=== PATIENT | male | born 1950 | race Caucasian/White ===

== ENCOUNTER 2025-05-13 03:39 | Inpatient (IN) | payer MEDICARE, SELFPAY ==
[2025-05-12 22:32] VITALS: BP 147/57
[2025-05-12 22:47] LABS: Hematocrit 34.9 % (39.0-52.0); Hemoglobin 11.3 g/dL (13.0-18.0); Mean Corp Hgb Conc. 32.4 g/dL (33.0-37.0); Mean Corpuscular Volume 87.9 fL (80.0-94.0); Nucleated Red Blood Cells % 0 % (-); Platelet Count 348 10^3/uL (130-400); Red Cell Dist. Width 15.2 % (11.5-14.5)
--- NOTE | 2025-05-12 22:55 | ED.GENMED ---
History of Present Illness
General
Chief Complaint: Breathing Problem
Source: patient, records and family
Time Seen by Provider: 05/12/25 22:38
History of Present Illness
History of Present Illness:
This patient is a 74-year-old male presents emergency department with fevers cough and shortness of breath. Patient occasionally has shortness of breath but tonight he noted that he was having a hard time breathing and was noted to have an
increased oxygen requirement. Family states that he is typically on nasal cannula, and then BiPAP at night. Patient states he is normally on 2 L of nasal cannula during the day and he is noted to be on a higher oxygen requirement at this time.
states that he has an increase in his cough recently. He does not take food or drink orally and is exclusively maintaining nutrition via PEG tube. Patient denies chest pain, abdominal pain, nausea, vomiting, leg swelling, urinary symptoms, or
other complaints. He is incontinent at baseline.
Past History
Past History
ED Past Medical History: Other (GBS, diabetes, thrombocytopenia, kidney failure/hemodialysis, left upper extremity DVT, COPD, reflux)
Social History
Tobacco: Non-smoker
Drug: None
Personal:
Living: correction
Phy Exam
Physical Exam
Physical Exam:
GENERAL: Alert , in no apparent distress
EYE: pupils equal and reactive
NECK: Supple, no significant adenopathy.
ENT: o/p clr, mmm.
CARDIAC: Regular rate and rhythm . Right hemodialysis cath site in the right anterior chest without secondary redness warmth or tenderness
LUNGS: Equal breath sounds bilaterally, no acute respiratory distress, occasional wheeze noted, no rales. Patient has a occasional cough and it does not appear that he is adequately clearing sputum
ABDOMEN: Soft, mild lower abdominal tenderness, no r/g, PEG tube noted clean dry and intact
NEUROLOGICAL: Alert and oriented, chronic/subacute weakness noted
SKIN: Warm and dry, skin intact. Very dry skin noted bilateral lower extremities
MUSCULOSKELETAL: No edema, well perfused.
PSYCH: Normal and appropriate interaction.
: Excoriated scrotal area noted
Course
Orders/Labs/Results
Orders:
Orders
05/12/25 22:31
Electrocardiogram (*1) Urgent
Reason for Study: Shortness of Breath
EKG- Treatment ONCE
CR Chest - 2 Views Urgent
Comment:
Reason For Exam: SOB
05/12/25 22:38
COVID-19 Antigen Urgent
Source: Nasal Swab
Complete Blood Count/With Diff Urgent
Comprehensive Metabolic Panel Urgent
Influenza A+B Rapid Molecular Urgent
[facility] Source: Nasal Swab
Specimen Description:
05/12/25 23:09
D-Dimer Urgent
NT-proBNP Urgent
Troponin I Urgent
05/13/25 00:38
CT Chest W/o Iv Contrast Urgent
Comment:
Reason For Exam: l sided cxr abnl, hypoxia
Urinalysis Reflex To Culture Urgent
Piperacillin/Tazo 4.5 Gram [Zosyn] 4.5 gram in 100 ml IV NOW
05/13/25 00:46
Lactic Acid Q4H
Comment: CANCEL 2nd LACTIC ACID IF 1st LACTIC ACID IS LESS THAN 2
Blood Culture Q30M
[facility] Source: Blood/Venous
Specimen Description:
Blood Culture Q30M
[facility] Source: Blood/Venous
Specimen Description:
05/13/25 04:45
Lactic Acid Q4H
Comment: CANCEL 2nd LACTIC ACID IF 1st LACTIC ACID IS LESS THAN 2
Abnormal Lab Results
05/12/25 05/12/25
22:38 23:09
WBC 22.0 H 10^3/uL
(4.8-10.8)
RBC 3.97 L 10^6/uL
(4.70-6.10)
Hgb 11.3 L g/dL
(13.0-18.0)
Hct 34.9 L %
(39.0-52.0)
MCHC 32.4 L g/dL
(33.0-37.0)
RDW 15.2 H %
(11.5-14.5)
MPV 11.9 H fL
(7.4-10.4)
Abs Immat Gran (auto) 0.6 H 10^3/uL
(0-0.05)
Absolute Neuts (auto) 17.6 H 10^3/uL
(1.4-6.5)
Absolute Monos (auto) 1.9 H 10^3/uL
(0.1-0.6)
Immature Gran % 2.6 H %
(0-0.5)
Neutrophils % 80.0 H %
(42.2-75.2)
Lymphocytes % 5.4 L %
(20.5-51.1)
D-Dimer 2.97 H ug/mlFEU
(0.00-0.50)
Sodium 130 L mmol/L
(135-145)
BUN 42 H mg/dl
(9-20)
Creatinine 1.9 H mg/dL
(0.7-1.3)
Glucose 249 H mg/dl
(70-99)
Calcium 10.6 H mg/dl
(8.4-10.2)
Alkaline Phosphatase 137 H U/L
(38-126)
05/12/25 22:38
05/12/25 22:38
Vital Signs
Initial and Last Documented VS:
Initial Vital Signs
Temp Pulse Ox
98.2 F 94
05/12/25 22:24 05/12/25 22:24
Last Documented Vital Signs
Temp Pulse Resp BP Pulse Ox
98.2 F 72 30 136/50 99
05/12/25 22:24 05/13/25 01:00 05/13/25 01:00 05/12/25 23:00 05/13/25 01:00
*Pulse Oximetry
SaO2: 94
Nasal Cannula flow liters per minute: 6
Update Note
Update Note:
Patient presents to the Emergency Department with ___reported fever dyspnea and cough
Number and Complexity of Problems Addressed at the Encounter
� Chronic conditions affecting care:
� Acute Exacerbation and/or Progression of Chronic Illness:
� Differential Diagnosis includes: But not limited to pneumonia, pleural effusion, bronchitis, COPD exacerbation, ACS, PE, etc. etc.
Amount and/or Complexity of Data to be Reviewed and Analyzed
� I performed an independent evaluation of and my interpretation is:
EKG: Read by me, normal sinus rhythm, LAD, no acute ischemia
CT: Pending at time of disposition to hospitalist
Xrays: Patient has a 'white out' of the entire left lung field
Laboratory Studies: Marked leukocytosis with shift, mild anemia, hyponatremia, abnormal renal function no prior to compare but not unexpected given patient is on hemodialysis. Nonspecific D-dimer elevation
Other:
� Review of other/old records reveals: No old records available however I have reviewed his [place] point summary report
� Clinical information was obtained by an independent historian: Daughter son and all who are at bedside and offer further information regarding his baseline and new symptoms
� Prescriptions/Medications Considered but not given:
� Further testing considered but not performed:
Risk of Complications and/or Morbidity or Mortality of Patient Management
� Social determinants of health affecting care:
� Discussion with other providers (PCP, Hospitalists, Consultants, etc):
� Escalation of care including admission/observation vs risk of discharge considered: 1:39 AM patient remains stable on nasal cannula, no new complaints, no chest pain. No prior records for comparison here. Patient had a CAT
scan performed given markedly abnormal chest x-ray and this result is pending. Suspect multi focal left-sided pneumonia, which may or may not include effusion. Patient does not meet criteria for sepsis, and suspected pneumonia most likely etiology
for patient's presentation here. No other source of infection identified on history or physical exam. Antibiotics started. Hospitalist made aware. Family updated.
2:28 AM vision report 'large left pleural effusion with near complete collapse of the left lung with only mild aeration. However the volume of the lung is more than expected for peer atelectasis given debris within the left mainstem bronchus please
correlate for con commitment clinical infection/aspiration. No definitive obstruction mass, suggest follow-up to ensure resolution of this finding. No midline shift. Aorta demonstrates no evidence of aneurysm, moderate calcifications. Severe
coronary artery calcifications and/or stent. Pacemaker. These findings will be communicated to the admitting hospitalist via [place] text.
ED Attending Note
-
Portions of this chart may have been created with voice recognition software.� Occasional wrong word or��sound alike� substitutions may have occurred due to the inherent limitations of voice recognition software.
Discharge Plan
Departure
Patient Disposition: Admit
Date of Disposition: 05/13/25
Time of Disposition: 01:40
Presentation/result/management discussed w/ accepting MD/DO: Hospitalist
Condition: Fair
Prescriptions:
No Action
atorvastatin 40 mg Tablet
40 mg feeding tube QPM
acetaminophen 325 mg Tablet
325 mg FEEDING TUBE ONCE PRN (Reason: pain, fever)
aspirin 325 mg Tablet
325 mg feeding tube DAILY
ascorbic acid (vitamin C) 500 mg Tablet
500 mg feeding tube DAILY
ammonium lactate 12 % Cream
1 applic TOPICAL DAILY
bumetanide 2 mg Tablet
2 mg feeding tube DAILY
Rx Instructions:
AM every friday, , sat and sun
hydralazine 25 mg Tablet
25 mg feeding tube QID
cabergoline 0.5 mg Tablet
0.5 mg FEEDING TUBE ONCE
Rx Instructions:
every 4 days
escitalopram oxalate 20 mg Tablet
20 mg feeding tube DAILY
guaifenesin 200 mg/5 mL Liquid
200 mg feeding tube Q4H PRN (Reason: cough)
insulin glargine 100 unit/mL (3 mL) Insulin Pen
24 unit SC QPM
cholecalciferol (vitamin D3) 50 mcg (2,000 unit) Tablet
50 mcg feeding tube DAILY
ipratropium-albuterol 0.5 mg-3 mg(2.5 mg base)/3 mL Solution For Nebulization
3 ml INHALATION Q6H PRN (Reason: SOB)
levothyroxine 150 mcg Tablet
150 mcg feeding tube DAILY
lansoprazole 15 mg Capsule,Delayed Release(Dr/Ec)
10 mg feeding tube BID
metoprolol tartrate 25 mg Tablet
25 mg feeding tube BID
lidocaine HCl 4 % Adhesive Patch,Medicated
1 patch TOPICAL DAILY PRN (Reason: pain)
Rx Instructions:
left shoulder
multivitamin [A To Z Multivitamin] Tablet
1 tab FEEDING TUBE DAILY
primidone 50 mg Tablet
50 mg feeding tube HS
Novolin R FlexPen 100 unit/mL (3 mL) Insulin Pen
1 sliding scale dose SC DIRECTED
Novolin R FlexPen 100 unit/mL (3 mL) Insulin Pen
4 unit SC BID
Rx Instructions:
AC/HS
sevelamer carbonate 0.8 gram Powder In Packet
0.8 g feeding tube TID
Rx Instructions:
with meals
ProSource 10-100 gram-kcal/30 mL Liquid
30 ea feeding tube
Rx Instructions:
30ML
balsam rush-castor oil [Venelex] Ointment
1 applic TOPICAL QID
polyethylene glycol 3350 4.25 gram Powder In Packet
4.25 g feeding tube DAILY
Referrals:
NONE,* [Family Provider, Internal Medicine]
Interventions
Interventions:
ED- Cardiac Assessment Last Done: 05/12/25 23:30
ED- Pulmonary Assessment Last Done: 05/12/25 23:30
Discharge Date and Time
Print Language: BENGALI
[2025-05-12 23:00] VITALS: BP 136/50
[2025-05-12 23:02] LABS: ALT (SGPT) 26 U/L (0-50); AST (SGOT) 19 U/L (17-59); Albumin 4.0 g/dl (3.5-5.0); Alkaline Phosphatase 137 U/L (38-126); Blood Urea Nitrogen 42 mg/dl (9-20); Calcium 10.6 mg/dl (8.4-10.2); Carbon Dioxide 26 mmol/L (22-30); Chloride 101 mmol/L (98-107); Glucose 249 mg/dl (70-99); Potassium 4.0 mmol/L (3.5-5.1); Sodium 130 mmol/L (135-145); Total Protein 6.9 g/dl (6.3-8.2); eGFR 36.56
[2025-05-12 23:05] LABS: COVID-19 Antigen Negative (Negative)
[2025-05-12 23:36] LABS: D-Dimer 2.97 ug/mlFEU (0.00-0.50)
[2025-05-12 23:41] LABS: Troponin I 0.020 ng/ml
[2025-05-13] VITALS (47 sets, daily range): BP systolic 17–143; BP diastolic 41–106; PULSE 62; BMI 31.8
[2025-05-13] MEDS: ZOSYN 100 IV (02:33)
--- NOTE | 2025-05-13 02:42 | HPS.HSE ---
Family Physician
-
Family Physician: * NONE
Chief Complaint
-
Shortness of breath
History of Present Illness
This is a 74-year-old male with extensive past medical history including diagnosis of Guillain-Wright� syndrome, COPD, chronic respiratory failure on home O2, insulin-dependent diabetes, end-stage renal disease on hemodialysis Friday,
history of DVT and PE, CHF, dysphagia status post PEG tube who presents to the emergency department from [facility] with fevers cough and shortness of breath.
Patient reports that he has been having cough for about a week reports that more recently he has been having trouble breathing. A sad recent increase in his oxygen requirement. He is currently on 4 L and is normally on 2 L nasal cannula during the
day. Is also on BiPAP at night. According to spouse patient has increased cough recently that is mostly nonproductive. ED only takes nutrition via PEG tube. He denies any chest pain, nausea or vomiting, abdominal pain, worsening lower extremity
swelling palpitations or other complaints. Denies any new urinary symptoms.
Here in the emergency department the patient was afebrile, was tachycardic tachypneic to 30, blood pressure was 136/50 with a pulse of 72 and he was satting 98% on 4 L.
Leukocytosis of 22, hemoglobin was 11.3 platelet 348. Electrolytes were stable. Potassium 4.0 bicarb 26 sodium 130. Benign creatinine. 1.9 (patient is on hemodialysis) glucose 249. BNP was 6000, troponin 0.02 and D-dimer was also elevated at 2.
CT of the chest shows: Large left pleural effusion with near complete collapse of the left lung with only mild aeration, debris's within the left main bronchus concerning for infection/aspiration, no definitive obstructing mass
Medical History
Past Medical History
Past Medical History: Reports Other
Additional Past Medical History:
Green Beret syndrome, acute and chronic respiratory failure, anemia, COPD, CHF, dysphagia status post PEG tube, pulmonary embolism and DVT, CKD, insulin-dependent diabetes, hypertension, GERD, macular degeneration, ulcerative colitis, sick sinus
syndrome,
Past Surgical History: Reports Other
Social History
Tobacco: Non-smoker
Alcohol: None
Drug: None
Personal:
Living: [facility]
Employment: Disabled
Family History
Family History: Not pertinent
Allergies / Home Medications
Allergies reflects when Allergies were last updated in [facility] app.
Home Medications with original date entered in [facility] app
Allergy/Medication List:
Allergies
Allergy/AdvReac Type Severity Reaction Status Date / Time
mesalamine Allergy Unknown Unknown Verified 05/13/25 01:03
Iodinated Contrast Media Allergy Unknown Verified 05/13/25 01:03
Penicillins Allergy Unknown Verified 05/13/25 01:03
Sulfa (Sulfonamide Allergy Unknown Verified 05/13/25 01:03
Antibiotics)
Home Medications
acetaminophen 325 mg tablet 325 mg feeding tube ONCE PRN pain, fever 05/13/25
amino ac-protein hydro-whey protein 10 gram-100 kcal/30 mL oral liquid (ProSource) 30 ea feeding tube 05/13/25
ammonium lactate 12 % topical cream 1 applic topical DAILY 05/13/25
ascorbic acid (vitamin C) 500 mg tablet 500 mg feeding tube DAILY 05/13/25
aspirin 325 mg tablet 325 mg feeding tube DAILY 05/13/25
atorvastatin 40 mg tablet 40 mg feeding tube QPM 05/13/25
balsam rush-castor oil topical ointment (Venelex topical ointment) 1 applic topical QID 05/13/25
bumetanide 2 mg tablet 2 mg feeding tube DAILY 05/13/25
cabergoline 0.5 mg tablet 0.5 mg feeding tube ONCE 05/13/25
cholecalciferol (vitamin D3) 50 mcg (2,000 unit) tablet 50 mcg feeding tube DAILY 05/13/25
escitalopram oxalate 20 mg tablet 20 mg feeding tube DAILY 05/13/25
guaifenesin 200 mg/5 mL oral liquid 200 mg feeding tube Q4H PRN cough 05/13/25
hydralazine 25 mg tablet 25 mg feeding tube QID 05/13/25
insulin glargine 100 unit/mL (3 mL) subcutaneous pen 24 unit SC QPM 05/13/25
insulin regular human 100 unit/mL (3 mL) subcutaneous pen (Novolin R FlexPen) 1 sliding scale dose SC DIRECTED 05/13/25
insulin regular human 100 unit/mL (3 mL) subcutaneous pen (Novolin R FlexPen) 4 unit SC BID 05/13/25
ipratropium 0.5 mg-albuterol 3 mg (2.5 mg base)/3 mL nebulization soln 3 ml inhalation Q6H PRN SOB 05/13/25
lansoprazole 15 mg capsule,delayed release 10 mg feeding tube BID 05/13/25
levothyroxine 150 mcg tablet 150 mcg feeding tube DAILY 05/13/25
lidocaine HCl 4 % topical patch 1 patch topical DAILY PRN pain 05/13/25
metoprolol tartrate 25 mg tablet 25 mg feeding tube BID 05/13/25
multivitamin 1 tab feeding tube DAILY 05/13/25
polyethylene glycol 3350 4.25 gram oral powder packet 4.25 g feeding tube DAILY 05/13/25
primidone 50 mg tablet 50 mg feeding tube HS 05/13/25
sevelamer carbonate 0.8 gram oral powder packet 0.8 g feeding tube TID 05/13/25
Review of Systems
-
Constitutional: Reports Fever
EENT: Reports No Symptoms
Respiratory: Reports Cough and Trouble Breathing
Cardiac: Reports No Symptoms
Abdomen/GI: Reports No Symptoms
: Reports No Symptoms
Musculoskeletal: Reports No Symptoms
Skin: Reports No Symptoms
Neurological: Reports No Symptoms
Endocrine: Reports No Symptoms
Hematologic/Lymphatic: Reports No Symptoms
Psych: Reports No Symptoms
Physical Exam
Vital Signs
Vital Signs
Temp Pulse Resp BP Pulse Ox
98.2 F 72 30 136/50 99
05/12/25 22:24 05/13/25 01:00 05/13/25 01:00 05/12/25 23:00 05/13/25 01:00
Physical Exam
General: Well Developed, Well Nourished and No Apparent Distress
HEENT: NormoCephalic, Moist mucous membranes, Atraumatic, PERRLA and Oxygen
Respiratory: Decreased Breath Sounds
Cardiac: S1/S2 and Regular Rhythm; No Murmur or Rub
GI: Soft, Non Tender, Non Distended, Normal Bowel Sounds and Peg Tube; No Organomegaly
Rectal: Deferred by Provider
Genito-urinary: Deferred by me
Musculoskeletal: No Clubbing, No Cyanosis and No Edema
Skin: No Rash
Neuro: AO x 3, No Sensory Deficits and Other (2 out of 4 strength in the bilateral upper extremity, 2 out of 4 strength in the bilateral lower extremity)
Psych: Calm
Laboratory Results
-
05/12/25 22:38
05/12/25 22:38
Laboratory Results
Lactic Acid 0.8 mmol/L (0.7-2.0) 05/13/25 00:46
Total Bilirubin 0.5 mg/dl (0.2-1.3) 05/12/25 22:38
AST 19 U/L (17-59) 05/12/25 22:38
ALT 26 U/L (0-50) 05/12/25 22:38
Alkaline Phosphatase 137 U/L (38-126) H 05/12/25 22:38
Troponin I 0.020 ng/ml 05/12/25 23:09
Data Reviewed
-
CT Scan: Report Reviewed by me
Lab Data: Labs Reviewed by me
Old Records: Reviewed
Impression/Plan
-
IMPRESSION:
74-year-old with extensive past medical history notable for Granberry syndrome, chronic respiratory failure on 2 to 4 L home O2, on BiPAP dependent at home, dysphagia status post PEG who presents to the emergency department with cough and fevers at
home as well as worsening shortness of breath. Found to have significant left-sided lung collapse with only mild aeration, large left-sided pleural effusion and significant debris's within the left main bronchus concerning for aspiration. Patient
has leukocytosis to 22. Currently does not meet sepsis criteria without fever or tachycardia in the ED. Appears to be euvolemic on examination.
PLAN:
Complicated pneumonia -on pneumonia with possible large parapneumonic effusion, non-septic
- Admit to med/surg
- Blood cultures
- Influenza negative
- Check MRSA
- Continue Zosyn for now
- Supplemental oxygen
- IR consulted for diagnostic and therapeutic left thoracentesis
- BiPAP at bedtime
-Pulmonary consultation
ESRD -still makes urine, HD Friday
- Nephrology consult for HD
- Fluid restricted diet
- Renal dose medication
- continue sevelamer
Insulin-dependent diabetes
- Lantus 20 every afternoon
- Regular insulin 4 units SC twice daily
- Sliding scale every 6 hours
Tube Feeding
- Patient on Nepro 7 5 mL per x 18 hours, starting at 3 PM to 9 AM
- Free water flushes undetermined
CHF
- HD as above
- Continue Bumex daily
- Daily weights
- Continue hydralazine 25 4 times daily
DVT PPX - heparin sq
Code status - Full Code
--- NOTE | 2025-05-13 07:00 | EDRN ---
Pt cleaned up after incontinent of urine in bed. Pt then tilted to his left side w/ chair cushion.
--- NOTE | 2025-05-13 07:30 | EDRN ---
Pt is on oxygen at 4lpm here in ER and not on it at [facility], [facility].
--- NOTE | 2025-05-13 07:45 | EDRN ---
This RN texted Dr. Cowart at this time to check on whether pt is NPO w/ or w/out meds.
[2025-05-13 07:52] LABS: Glucose - Point of Care 158 mg/dl (70-99)
--- NOTE | 2025-05-13 08:15 | EDRN ---
Dr. Cowart responded to text to administer medications.
--- NOTE | 2025-05-13 08:23 | WOUNDNOTE ---
MARCELINO (R LATERAL; L MEDIAL)
--- NOTE | 2025-05-13 08:23 | WOUNDNOTE ---
R HEEL (BLANCHABLE RED)
--- NOTE | 2025-05-13 08:26 | WOUNDNOTE ---
FEEDING TUBE SITE
--- NOTE | 2025-05-13 08:26 | WOUNDNOTE ---
WOC RN note: Patient admitted with pneumonia. Patient admitted from [facility]. He stated he has an air mattress at [facility].
See H&P for complete history.
PMH: Sheree [place], COPD, respiratory insufficiency (on o2), IDDM, ESRD on HD, PE, DVT, CHF, PEG.
Wound Location and type/assessment: Patient admitted with: MASD with denuded open skin on sacrum, perineum, groin area. Stage 2 sacral/coccyx pressure injury vs MASD vs both. L elbow stage 1 pressure injury. Blanchable red heels. Dry thin linear
abrasion L hip. Mild dry red rash around feeding tube suspect r/t moisture.
Appetite: PEG, NPO.
Pressure redistribution devices in place: ED stretcher. Air chair cushion. Patient cannot turn self. ED RN Emilie Martinez plans to apply a static air overlay. Patient to go to [facility] for a procedure today as per ED RN.
Plan: Silicone border foam applied to sacrum. Silicone border foam applied to L heel. Patient turned to R semi side lying position with help from ED RN Emilie. Foot Waffle heel relief boots applied to Le's.
Will confirm orders with Dr. Cowart and discussed with nurse.
Care plan to be updated and will follow as needed.
[2025-05-13] MEDS: NOVOLOG FLEXPEN-LOW RESISTANCE SC ×3 (08:30→17:22)
--- NOTE | 2025-05-13 08:30 | EDRN ---
Dr. Cowart in to see pt at this time and spoke about a bronchoscopy and pulmonary consult w/ Dr. Herrera.
--- NOTE | 2025-05-13 08:41 | W.CON.NEPH ---
Consultation
-
Date/Time Consultation Requested: 05/13/25 7:30 AM
Date/Time Consultation Performed: 05/13/2025 8:45 AM
Requesting Provider: Dr. Cowart
Performing Provider: Dr. Rob
Reason for Consultation: ESRD
Medical History
-
Chief Complaint: End-stage renal disease
History of Present Illness:
This is a 74-year-old male with extensive past medical history including diagnosis of Guillain-Wright� syndrome, COPD, chronic respiratory failure on home O2, insulin-dependent diabetes, end-stage renal disease on hemodialysis Friday,
history of DVT and PE, CHF, dysphagia status post PEG tube who presents to the emergency department from [facility] with fevers cough and shortness of breath. The patient states he has been on dialysis since September 2024 when he was originally
admitted to [facility]. He has been in numerous hospitals and at one time was in [place].
Patient reports that he has been having cough for about a week reports that more recently he has been having trouble breathing. He had required an increase in his oxygen requirement. He is currently on 4 L and is normally on 2 L nasal cannula
during the day. Is also on BiPAP at night. According to spouse patient has increased cough recently that is mostly nonproductive. He only takes nutrition via PEG tube. He denies any chest pain, nausea or vomiting, abdominal pain, worsening lower
extremity swelling palpitations or other complaints. Denies any new urinary symptoms.
Here in the emergency department the patient was afebrile, was tachycardic tachypneic to 30, blood pressure was 136/50 with a pulse of 72 and he was satting 98% on 4 L.
Leukocytosis of 22, hemoglobin was 11.3 platelet 348. Electrolytes were stable. Potassium 4.0 bicarb 26 sodium 130. Benign creatinine. 1.9 (patient is on hemodialysis) glucose 249. BNP was 6000, troponin 0.02 and D-dimer was also elevated at 2.
CT of the chest shows: Large left pleural effusion with near complete collapse of the left lung with only mild aeration, debris's within the left main bronchus concerning for infection/aspiration, no definitive obstructing mass
Past Medical History
Potter Wright� syndrome, acute and chronic respiratory failure, anemia, COPD, CHF, dysphagia status post PEG tube, pulmonary embolism and DVT, insulin-dependent diabetes, hypertension, GERD, macular degeneration, ulcerative colitis, sick sinus
syndrome, ESRD on MWF at [place]
Social History
Tobacco: Non-Smoker
Alcohol: None
Drug: None
Family History
Family History: Not Pertinent
Allergies / Home Medications
Allergy/AdvReac Type Severity Reaction Status Date / Time
mesalamine Allergy Unknown Unknown Verified 05/13/25 01:03
Iodinated Contrast Media Allergy Unknown Verified 05/13/25 01:03
Penicillins Allergy Unknown Verified 05/13/25 01:03
Sulfa (Sulfonamide Allergy Unknown Verified 05/13/25 01:03
Antibiotics)
�Medication �Instructions �Recorded �Confirmed �Type
acetaminophen 325 mg tablet 325 mg feeding tube ONCE PRN pain, 05/13/25 05/13/25 History
fever
amino ac-protein hydro-whey 30 ea feeding tube 05/13/25 History
protein 10 gram-100 kcal/30 mL
oral liquid (ProSource)
ammonium lactate 12 % topical cream 1 applic topical DAILY 05/13/25 05/13/25 History
ascorbic acid (vitamin C) 500 mg 500 mg feeding tube DAILY 05/13/25 05/13/25 History
tablet
aspirin 325 mg tablet 325 mg feeding tube DAILY 05/13/25 05/13/25 History
atorvastatin 40 mg tablet 40 mg feeding tube QPM 05/13/25 05/13/25 History
balsam rush-castor oil topical 1 applic topical QID 05/13/25 05/13/25 History
ointment (Venelex topical ointment)
bumetanide 2 mg tablet 2 mg feeding tube DAILY 05/13/25 05/13/25 History
cabergoline 0.5 mg tablet 0.5 mg feeding tube ONCE 05/13/25 05/13/25 History
cholecalciferol (vitamin D3) 50 50 mcg feeding tube DAILY 05/13/25 05/13/25 History
mcg (2,000 unit) tablet
escitalopram oxalate 20 mg tablet 20 mg feeding tube DAILY 05/13/25 05/13/25 History
guaifenesin 200 mg/5 mL oral liquid 200 mg feeding tube Q4H PRN cough 05/13/25 05/13/25 History
hydralazine 25 mg tablet 25 mg feeding tube QID 05/13/25 05/13/25 History
insulin glargine 100 unit/mL (3 24 unit SC QPM 05/13/25 05/13/25 History
mL) subcutaneous pen
insulin regular human 100 unit/mL 1 sliding scale dose SC DIRECTED 05/13/25 05/13/25 History
(3 mL) subcutaneous pen (Novolin R
FlexPen)
insulin regular human 100 unit/mL 4 unit SC BID 05/13/25 05/13/25 History
(3 mL) subcutaneous pen (Novolin R
FlexPen)
ipratropium 0.5 mg-albuterol 3 mg 3 ml inhalation Q6H PRN SOB 05/13/25 05/13/25 History
(2.5 mg base)/3 mL nebulization
soln
lansoprazole 15 mg capsule,delayed 10 mg feeding tube BID 05/13/25 05/13/25 History
release
levothyroxine 150 mcg tablet 150 mcg feeding tube DAILY 05/13/25 05/13/25 History
lidocaine HCl 4 % topical patch 1 patch topical DAILY PRN pain 05/13/25 05/13/25 History
metoprolol tartrate 25 mg tablet 25 mg feeding tube BID 05/13/25 05/13/25 History
multivitamin 1 tab feeding tube DAILY 05/13/25 05/13/25 History
polyethylene glycol 3350 4.25 gram 4.25 g feeding tube DAILY 05/13/25 05/13/25 History
oral powder packet
primidone 50 mg tablet 50 mg feeding tube HS 05/13/25 05/13/25 History
sevelamer carbonate 0.8 gram oral 0.8 g feeding tube TID 05/13/25 05/13/25 History
powder packet
Review of Systems
-
All other systems: Negative unless noted
Constitutional: Fever
Respiratory: Cough and Trouble Breathing
Abdomen/GI: Other (PEG)
Musculoskeletal: Edema
Physical Exam
Vital Signs
Vital Signs
Temp Pulse Resp BP Pulse Ox
98.2 F 64 18 128/46 97
05/12/25 22:24 05/13/25 06:15 05/13/25 06:15 05/13/25 06:00 05/13/25 06:15
Lab Results
eGFR 36.56 05/12/25 22:38
Gzg-X-Pajciaewjwg Pept 6220 pg/ml 05/12/25 23:09
Physical Exam
General: AOx3, Nontoxic , NAD.obese, chronically ill appearing
HEENT: PERRL, EOMI, Anicteric, Conjunctivae injected, Ear/Nose Intact, Hearing Normal, Oropharynx Clear/Moist, Dentition Intact, Facial Symmetry, Neck Supple, Neck: Trachea Midline, No JVD and No Thyromegaly, no Bruits
Respiratory: Coarse to auscultation bilaterally with absent breath sounds alone left lung field
Cardiac: S1/S2 and Regular Rate/Rhythm
Breast: Deferred by me
Tunneled right IJ catheter
Abdomen: Soft, Nontender,obese, Nondistended, Normal Bowel Sounds and No Hepatosplenomegaly,PEG
Rectal: Deferred by Provider
Genito-urinary: No Costovertebral Tenderness
Extremities: No Clubbing, No Cyanosis and No Edema
Skin: No Rash or open lesions
Neuro: Nonfocal/Grossly Intact, CN II-XII (Intact) and Strength (Musculoskeletal exam 5 out of 5 both upper and lower extremities)
Hematologic/Lymphatic: No Cervical Lymphadenopathy, No Submandibular Lymphadenopathy and No Supraclavicular Lymphadenopathy
Psych: Mood/afflect pleasant, Insight/judgement good and Appropriate
Vascular: plus 1 pedal and radial pulses
Vascular Access: CVC (Right tunneled IJ hemodialysis catheter)
Data Reviewed
-
Radiology: Image Personally Visualized and interpreted (Chest x-ray personally reviewed: Tunneled right IJ hemodialysis catheter, left anterior chest wall placement, complete whiteout of left lung field )
Medical Tests (Nuc Med, Echo etc): Other (EKG personally reviewed sinus rhythm with first-degree AV block anterior lateral infarct pattern 73 beats per)
Labs: Labs Reviewed by me (BMP CBC)
Assessment/Plan
-
Impression:
Complicated pneumonia -on pneumonia with possible large parapneumonic effusion, non-septic
ESRD -still makes urine, HD Friday
Insulin-dependent diabetes
PEG
CHF
Hyperphosphatemia
CAD
Hypothyroidism
Plan:
-Will plan for dialysis today orders to be provided
- Appropriate dietary and fluid restrictions to be ordered
- Will likely undergo left pleural effusion tap
- Maintain phosphate binders for hyperphosphatemia
- Antibiotics to be renally dosed for ESRD in setting of pneumonia
[2025-05-13] MEDS: SYNTHROID 150 MCG TUBE (08:57)
[2025-05-13] MEDS: MAXIPIME 1000 MG IV (08:57)
[2025-05-13] MEDS: STERILE WATER FOR INJECTION 10 ML IV (08:58)
[2025-05-13] MEDS: HEPARIN 5000 UNITS SC ×3 (09:01→23:38)
[2025-05-13] MEDS: FLAGYL 500 MG 100 IV ×3 (09:05→23:39)
[2025-05-13] MEDS: LEXAPRO 20 MG TUBE (09:20)
[2025-05-13] MEDS: APRESOLINE 25 MG TUBE ×2 (09:21→21:54)
[2025-05-13] MEDS: PREVACID 15 MG TUBE ×2 (09:22→19:47)
[2025-05-13] MEDS: LOPRESSOR 25 MG TUBE ×2 (09:22→19:45)
[2025-05-13] MEDS: LAC HYDRIN, AM LACTIN LOTION 1 APPLIC TOPICAL (09:23)
[2025-05-13] MEDS: SEVELAMER CARBONATE 0.8 GM TUBE (09:23)
--- NOTE | 2025-05-13 09:27 | CON.PUL ---
Addendum entered and electronically signed by Mary Lou Eng DO 05/13/25 15:09:
No acute issues on bronchoscopy, bronch wash sent
Repeat CXR showing significant improvement, likely atelectasis from NM disease/decrease volumes
Now improved with small effusion
Cancel IR consult for thora
Continue volume removal via HD, discussed with renal team
Reviewed case with ICU team, can transfer to tele following observation
Original Note:
Consultation
Consultation Request
Date/Time Consultation Requested: 05/13/25
Date/Time Consultation Performed: 05/13/25
Performing Provider: Velasquez
Reason for Consultation: PNA
Medical History
-
History of Present Illness:
Patient is a 74-year-old male with previous history of Guillain-Wright� syndrome, COPD, chronic respiratory failure on home oxygen, diabetes, end-stage renal disease on HD MWF, PE/DVT, chronic dysphagia status post PEG presenting to ER from [place] with fevers, cough and shortness of breath. He has been having difficulty with expectorating mucus. He is quite immobile from his neuromuscular disease and can use his upper extremities to a limited degree. Chest x-ray obtained indicating
left-sided whiteout with suspicion for mucous plugging. He is currently 97% on room air.
Of note, he has no past records as he was recently admitted to [facility] and started on HD this past September 2024. Been hospitalized numerous times and placed at [facility]. No prior imaging for comparisons.
Past Medical History
Past Medical History: Other (see list below)
Social History
Tobacco: Non-smoker
Alcohol: None
Drug: None
Family History
Family History: Reviewed & Not Pertinent
Allergies / Home Medications
Allergies
Allergy/AdvReac Type Severity Reaction Status Date / Time
mesalamine Allergy Unknown Unknown Verified 05/13/25 01:03
Iodinated Contrast Media Allergy Unknown Verified 05/13/25 01:03
Penicillins Allergy Unknown Verified 05/13/25 01:03
Sulfa (Sulfonamide Allergy Unknown Verified 05/13/25 01:03
Antibiotics)
Home Medications
�Medication �Instructions �Recorded �Confirmed �Last Taken �Type
acetaminophen 325 mg tablet 325 mg feeding tube ONCE PRN pain, 05/13/25 05/13/25 Unknown History
fever
amino ac-protein hydro-whey 30 ea feeding tube 05/13/25 Unknown History
protein 10 gram-100 kcal/30 mL
oral liquid (ProSource)
ammonium lactate 12 % topical cream 1 applic topical DAILY 05/13/25 05/13/25 Unknown History
ascorbic acid (vitamin C) 500 mg 500 mg feeding tube DAILY 05/13/25 05/13/25 Unknown History
tablet
aspirin 325 mg tablet 325 mg feeding tube DAILY 05/13/25 05/13/25 Unknown History
atorvastatin 40 mg tablet 40 mg feeding tube QPM 05/13/25 05/13/25 Unknown History
balsam rush-castor oil topical 1 applic topical QID 05/13/25 05/13/25 Unknown History
ointment (Venelex topical ointment)
bumetanide 2 mg tablet 2 mg feeding tube DAILY 05/13/25 05/13/25 Unknown History
cabergoline 0.5 mg tablet 0.5 mg feeding tube ONCE 05/13/25 05/13/25 Unknown History
cholecalciferol (vitamin D3) 50 50 mcg feeding tube DAILY 05/13/25 05/13/25 Unknown History
mcg (2,000 unit) tablet
escitalopram oxalate 20 mg tablet 20 mg feeding tube DAILY 05/13/25 05/13/25 Unknown History
guaifenesin 200 mg/5 mL oral liquid 200 mg feeding tube Q4H PRN cough 05/13/25 05/13/25 Unknown History
hydralazine 25 mg tablet 25 mg feeding tube QID 05/13/25 05/13/25 Unknown History
insulin glargine 100 unit/mL (3 24 unit SC QPM 05/13/25 05/13/25 Unknown History
mL) subcutaneous pen
insulin regular human 100 unit/mL 1 sliding scale dose SC DIRECTED 05/13/25 05/13/25 Unknown History
(3 mL) subcutaneous pen (Novolin R
FlexPen)
insulin regular human 100 unit/mL 4 unit SC BID 05/13/25 05/13/25 Unknown History
(3 mL) subcutaneous pen (Novolin R
FlexPen)
ipratropium 0.5 mg-albuterol 3 mg 3 ml inhalation Q6H PRN SOB 05/13/25 05/13/25 Unknown History
(2.5 mg base)/3 mL nebulization
soln
lansoprazole 15 mg capsule,delayed 10 mg feeding tube BID 05/13/25 05/13/25 Unknown History
release
levothyroxine 150 mcg tablet 150 mcg feeding tube DAILY 05/13/25 05/13/25 Unknown History
lidocaine HCl 4 % topical patch 1 patch topical DAILY PRN pain 05/13/25 05/13/25 Unknown History
metoprolol tartrate 25 mg tablet 25 mg feeding tube BID 05/13/25 05/13/25 Unknown History
multivitamin 1 tab feeding tube DAILY 05/13/25 05/13/25 Unknown History
polyethylene glycol 3350 4.25 gram 4.25 g feeding tube DAILY 05/13/25 05/13/25 Unknown History
oral powder packet
primidone 50 mg tablet 50 mg feeding tube HS 05/13/25 05/13/25 Unknown History
sevelamer carbonate 0.8 gram oral 0.8 g feeding tube TID 05/13/25 05/13/25 Unknown History
powder packet
Review of Systems
-
History Source: Patient
All other systems: Negative unless noted
Vitals / Labs / Diagnostic Testing
Vital Signs
Temp Pulse Resp BP Pulse Ox
98.2 F 64 18 128/46 97
05/12/25 22:24 05/13/25 06:15 05/13/25 06:15 05/13/25 06:00 05/13/25 06:15
Microbiology
05/12/25 22:38 Nasal Swab Influenza Types A & B (LAURA) - Final
Negative for Influenza A & B, NAAT
Negative results must be combined with clinical observations
and patient history.
Nucleic Acid Amplification test (NAAT)performed on the
[employer] platform.
Diagnostic Testing:
Physical Exam
-
HEENT: Normocephalic, Anicteric and Moist Mucous Membranes
Cardiovascular: S1/S2 and Regular Rhythm
Respiratory: Clear and Other (decreased on L throughout)
GI: Soft, Non Distended and Non Tender
Neurology: Awake, Alert and Other (overall weak, deconditioned)
Skin: Warm, Dry and Good Color
General: Comfortable and Other (NAD)
Assessment
-
Patient is a 74-year-old male with previous history of Guillain-Wright� syndrome, COPD, chronic respiratory failure on home oxygen, diabetes, end-stage renal disease on HD MWF, PE/DVT, chronic dysphagia status post PEG presenting to ER from [place] with fevers, cough and shortness of breath. He has been having difficulty with expectorating mucus. He is quite immobile from his neuromuscular disease and can use his upper extremities to a limited degree. Chest x-ray obtained indicating
left-sided whiteout with suspicion for mucous plugging. He is currently 97% on room air.
We are consulted for evaluation.
Acute on chronic left-sided bronchial obstruction likely from mucous plugging
Cough, fever, shortness of breath
Poor airway clearance
Profound deconditioning and neuromuscular weakness from Guillain-Wright�
Leukocytosis
Anemia, unknown origin
Hyponatremia, mild
Hyperglycemia
Hypercalcemia
Volume overload, pleural effusions noted on CT, proBNP 62[address]
Se[address] on CT
Conditions present prior to admission
Guillain-Wright� syndrome
Chronic respiratory failure on home oxygen
History of COPD
ESRD on HD MWF
PE DVT history
Diabetes
Chronic dysphagia status post PEG
Obesity
Hypertension
GERD
Macular degeneration
Ulcerative colitis
Sick sinus syndrome
Plan
Hypoxemia noted on arrival, O2 placed on briefly
Currently saturating 97% on RA
Chronic O2 use at home, unknown amount
Prior history of lung disease is noted including COPD, PE/DVT not on OAC
He has no prior imaging for comparison or records for review, new to [facility]
Suspect patient has acute on chronic mucus plugging due to poor airway clearance
This is likely to recur given his profound deconditioning
We will arrange diagnostic and therapeutic bronchoscopy today, reviewed with patient which he is agreeable to
We will need to review aggressive airway clearance measures that he should continue at home
We will send cultures for testing as well to rule out pneumonia
CXR/CT obtained indicating total left-sided whiteout with moderate size pleural effusion
We will re-image post procedure
No prior history of cardiomyopathy, but no prior echoes for review
He has severe CAD noted on CT imaging, there is a suspicion for mild volume overload with pleural effusions and elevated proBNP
Consideration for cardiac workup while inpatient
Debilitating neuromuscular illness underlying
PT OT eval
Weight loss measures recommended
Obesity likely contributing to respiratory symptoms
Will need outpatient pulmonary evaluation in our office for PFTs and 6MWT
Reviewed with patient
Risk factors assessed for underlying sleep disordered breathing also noted, recommend outpatient PSG/sleep evaluation.
He certainly at elevated risk given his BMI and underlying neuromuscular disease
We will follow
Diagnostic Data
Chest X-Ray: 05/12/25- . Complete whiteout of the left lung, with volume loss of the left hemithorax, suggestive of left lung atelectasis. Left pleural effusion may also be present.
2. Right lung is clear.
CT Scan: CHEST 05/12/25- . Frothy secretions are seen within the left mainstem bronchus, resulting in total bronchial obstruction and atelectasis of the entire left lung. Consider bronchoscopy to exclude obstructing endobronchial mass.
2. Moderate left pleural effusion without CT evidence of significant loculation. No large pleural-based mass is appreciated, although evaluation is limited without intravenous contrast.
3. Severe coronary arterial calcification. Please correlate with symptoms of and risk factors for coronary artery disease, with further workup as clinically appropriate.
Echo:
PFT's:
Reports and relevant images were personally reviewed.
Total time spent on this consultation __75__ minutes which includes review of history, physical exam, medications, laboratory data, personal review of imaging, extensive review of outpatient records, discussion with care team and respiratory therapy.
--- NOTE | 2025-05-13 09:34 | EDRN ---
Addendum entered by Emilie Martinez RN 05/13/25 09:37:
In ED at 8:15 to see pt.
Original Note:
Bria Porter Wound/sports photographer in to evaluate and assess pt w/ bilateral heel foams and air boots placed. Pt tilted w/ chair cushion to R at the time. Foam placed to sacral area. Plan to place pt on air overlay when comes from [facility].
--- NOTE | 2025-05-13 09:37 | EDRN ---
Addendum entered by Emilie Martinez RN 05/13/25 09:38:
IN to see pt at 9:00
Original Note:
Dr. Rob in to see pt and will order dialysis for today mary kay so as to also get pt to [facility] for thoracentesis later as unable to take him to later.
--- NOTE | 2025-05-13 10:21 | PHA.VAN.IN ---
Assessment
- Assessment
Renal Function: Patient has ESRD, on chronic Hemodialysis
Hemodialysis Schedule: MWF
Concomitant Antimicrobials: cefepime, metronidazole
Plan
- Plan
Initial / Loading Dose: 2000mg - to be administered after HD
Maintenance Regimen: dosing by level / HD
Monitoring: consider random level prior to HD Friday
MRSA Screen: Ordered per protocol
May consider level sooner depending on HD schedule, residual UOP and culture results
Pharmacokinetics Vancomycin I
- -
Patient Age: 74
Patient Sex: Male
Vancomycin Day #: 1
Indication: Pulmonary/Respiratory
Requesting Provider: Dr. Cowart
Pertinent Antimicrobial Allergies:
penicillins - unknown
sulfonamide antibiotics - unknown
Height / Weight:
Height 6 ft
Actual Weight 106.3 kg
Pertinent Past Medical History: ESRD on HD MWF, COPD (home O2), DM
- Vital Signs / Lab Results
Temp Pulse Resp BP Pulse Ox
98.2 F 65 28 121/53 99
05/12/25 22:24 05/13/25 09:30 05/13/25 09:30 05/13/25 09:22 05/13/25 09:30
Lab Results - Hematology
05/12/25
22:38
WBC 22.0 H
Lab Results - Chemistry
05/12/25
22:38
BUN 42 H
Creatinine 1.9 H
Albumin 4.0
05/13/25 05/13/25
00:46 04:45
Lactic Acid 0.8 Cancelled
Microbiology Results
05/12/25 22:38 Influenza Types A & B (LAURA) - Final
Nasal Swab Negative for Influenza A & B, NAAT
Negative results must be combined with clinical observations
and patient history.
Nucleic Acid Amplification test (NAAT)performed on the
[employer] platform.
--- NOTE | 2025-05-13 10:31 | EDRN ---
Pt is getting dialysis at this time.
--- NOTE | 2025-05-13 10:40 | W.PN.NEPH.HD ---
Assessment
-
Patient on dialysis
Systolic blood pressure stable with current UF
Patient dialysis time to be titrated back to 3 hours this patient requires bronchoscopy procedure
Progress Note - Hemodialysis
-
Date of Service: May 13, 2025
Duration: 3 hours
Potassium Bath: 3
Calcium Bath: 2.5
Opti-Dialyzer: 160
Ultrafiltration: Other (2 to 3 kg as tolerated)
Blood Flow: 400
Dialysate Flow: 600
Heparin: None
EPO: None
--- NOTE | 2025-05-13 10:41 | EDRN ---
This RN just texted Dr. Herrera about ordered bronchoscopy and she responded for bronchoscopy to be done first.
--- NOTE | 2025-05-13 11:09 | EDRN ---
Just TT'd dr. Cowart, pt is to have bronchoscopy first and will be upgraded to ICU admit and have that done there pos HD. HD has been decreased to 3 hours then pt to have bronchoscopy then to have thoracentesis. Just notified full charge bookkeeper.
--- NOTE | 2025-05-13 11:36 | EDRN ---
ICU called about getting pt a bed for bronchoscopy after 13:30 and informed pt needing a thoracentesis as well. Nurse that this RN spoke to will speak to ICU charge nurse about pt. Pt due to be done w/ dialysis at 13:30.
--- NOTE | 2025-05-13 11:45 | EDRN ---
Case Management in room w/ pt at this time.
--- NOTE | 2025-05-13 11:50 | EDRN ---
Pt has PT consult. Notified them of pt's status and they will see tomorrow.
--- NOTE | 2025-05-13 12:08 | CM ---
CM reviewed chart, patient seen bedside, initial assessment completed. Patient is a 74-year-old male with previous history of Guillain-Wright� syndrome, COPD, chronic respiratory failure on home oxygen, diabetes, end-stage renal disease on HD MWF,
PE/DVT, chronic dysphagia status post PEG presenting to ER from [facility] with fevers, cough and shortness of breath.
Patient confirms he has been receiving therapy at [facility] for about a month, has not been home since September. Patient reports prior to rehab/hospitalizations, patient resides at home with his in son, two story [place] home. Patient
currently receiving dialysis, MWF schedule. Patient for transfer to ICU. CM reviewed with liaison from , patient is not LTC, referral placed in [facility], awaiting PLOF from liaison. CM will continue to follow for all discharge planning needs.
Plan; likely return to SNF when medically stable
[2025-05-13 12:33] LABS: Glucose - Point of Care 136 mg/dl (70-99)
--- NOTE | 2025-05-13 12:37 | EDRN ---
Report called to Pierce RN in ICU at this time. VAT RN was TT'd for second IV access as requested by Pierce as pt will go to ICU 3370 post dialysis for bronchoscopy.
--- NOTE | 2025-05-13 12:49 | W.PN.HOSP.TC ---
Addendum entered and electronically signed by Abelardo Cowart MD 05/26/25 14:32:
Sepsis RECEIVING WEIGHER
Original Note:
Today's Communication/Plan
-
Monitor vitals
See plan
Nonbillable note
Discussed with pulmonary, need bronchoscopy
Transfer to ICU
Add vancomycin to cefepime and Flagyl, check MRSA screen
Follow cultures
Wean oxygen as tolerated
HD today per nephrology
Assessment / Plan
Assessment / Plan
General: Well Developed, Well Nourished and No Apparent Distress
HEENT: NormoCephalic, Moist mucous membranes, Atraumatic, PERRLA and Oxygen
Respiratory: Decreased Breath Sounds
Cardiac: S1/S2 and Regular Rhythm; No Murmur or Rub
GI: Soft, Non Tender, Non Distended, Normal Bowel Sounds and Peg Tube
Musculoskeletal: No Edema
Neuro: AO x 3, No Sensory Deficits and Other (2 out of 4 strength in the bilateral upper extremity, 2 out of 4 strength in the bilateral lower extremity)
Psych: Calm
Complicated pneumonia -on pneumonia with possible large parapneumonic effusion
Sepsis (leukocytosis, tachypnea) likely secondary to above
CT chest with frothy secretions within the left mainstem bronchus, resulting in total bronchial obstruction and atelectasis of entire left lung. Pulmonary consulted by me. Discussed with Dr. Eng and will need bronchoscopy.
Transfer to ICU
Blood cultures pending
Agree with pulmonary, suspect acute on chronic mucous plugging from poor airway clearance
Acute on chronic hypoxic respiratory failure, unclear how much oxygen patient is at [facility]. Wean oxygen as tolerated
- Continue Zosyn
- Supplemental oxygen
- IR consulted for diagnostic and therapeutic left thoracentesis
- BiPAP at bedtime
Continue Vanco, cefepime and Flagyl
ESRD -still makes urine, HD Friday
- Nephrology following for HD
- Fluid restricted diet
- Renal dose medication
- continue sevelamer
Insulin-dependent diabetes
- Lantus 20 every afternoon
- Regular insulin 4 units SC twice daily
- Sliding scale every 6 hours
History of Guillian De Graff
s/p PEG tube
Tube Feeding
- Patient on Nepro 7 5 mL per x 18 hours, starting at 3 PM to 9 AM at [facility]
Nutrition evaluation for tube feeding, after bronchoscopy if oxygen improves then can restart tube feeds per nutrition
CHF, unknown EF
suspect acute on chronic exacerbation
- HD as above
- Continue Bumex daily
- Daily weights
- Continue hydralazine 25 4 times daily
Hypothyroidism
Continue with levothyroxine
Insulin-dependent diabetes mellitus
Currently tube feeds on hold, hold twice daily insulin however continue with Lantus. Once start tube feeding then can start twice daily short acting
Accu-Cheks, sliding scale
History of COPD
PE/DVT history
Chronic dysphagia
Macular degeneration
Hypertension
DVT PPX - heparin sq
Code status - Full Code
Anticipated Discharge: > 48 hours
Subjective/Interval History
-
Date of Service: May 13, 2025
Denies chest pain
Objective Data
-
Labs:
Laboratory Results
05/13/25 05/13/25
08:15 08:39
WBC Pending
Hgb Pending
Hct Pending
Plt Count Pending
PT Pending
INR Pending
Sodium Pending
Potassium Pending
Chloride Pending
Carbon Dioxide Pending
BUN Pending
Creatinine Pending
Glucose Pending
Calcium Pending
Total Bilirubin Pending
AST Pending
ALT Pending
Alkaline Phosphatase Pending
Vital Signs:
Vital Signs
Temp Pulse Resp BP Pulse Ox
98.2 F 61 21 114/50 99
05/12/25 22:24 05/13/25 12:00 05/13/25 12:00 05/13/25 12:00 05/13/25 12:00
--- NOTE | 2025-05-13 13:10 | EDRN ---
VAT RN just started 2nd IV access in R hand #20 P.
[2025-05-13] MEDS: HEPARIN 3800 UNITS INTRACATH (13:46)
[2025-05-13] MEDS: VERSED 2 MG IV ×2 (14:00→14:56)
--- NOTE | 2025-05-13 14:01 | EDRN ---
TT just sent to Dr. Cowart about labs that were ordered. Orders not seen until after dialysis had started and now cannot be drawn until 30 min post dialysis. Kenneth CACERES was informed.
--- NOTE | 2025-05-13 14:11 | PTCARENOTE ---
Rec. pt. from ED.
Placed on ICU monitoring including capdanny, Dr. Herrera bedside for Bronch.
[2025-05-13] MEDS: SUBLIMAZE 25 MCG IV ×2 (14:20→14:54)
--- NOTE | 2025-05-13 14:49 | W.PN.UPDATE ---
Update Note
Progress Note Update
Procedure Note:
Procedure: Diagnostic and Therapeutic Bronchoscopy w/ BAL
Time In: 1415
Time Out: 1450
Informed consent obtained and placed in chart, from .
Sedation given pre-procedure, versed 2mg IV x 2, fentanyl 25mcg IV x 2
Note: Scope advanced through mouth to VC, jaw thrust needed to visualize completely, with suspicion for BOB. Lidocaine applied x 2 at VC due to coughing. Scope advanced through cords and lidocaine again applied to kavon.
There is diffuse erythema noted throughout but no abnormalities initially upon visual inspection of kavon. Left lung inspection performed first without obvious endobronchial lesions, mucus or abnormal mucosa. Thin secretions noted throughout.
Right lung inspection performed with no obvious endobronchial lesions, mucus or mucosal abnormalities as well. Thin secretions noted. Lavage performed at RML and washing obtained throughout R lung. Return of 10-15mL of thin frothy secretions to
be sent for culture. Scope discontinued from patient.
Patient tolerated procedure well, remains in ICU with saturations >90%
Repeat CXR to be obtained, bilateral breath sounds present.
Updated family.
Can downgrade from ICU post observation 2 hours.
--- NOTE | 2025-05-13 15:00 | PTCARENOTE ---
Bronch completed see time out flowsheet.
Sedation managed with
x2 2mg versed.
x2 25 mcg Fentanyl.
Post procedure CXR completed.
Hemodynamically stable.
[2025-05-13] MEDS: APRESOLINE TUBE ×2 (15:12→17:30)
[2025-05-13] MEDS: VANCOCIN 540 MG IV (16:15)
--- NOTE | 2025-05-13 17:01 | PTCARENOTE ---
Status post bronch
Patient remains drowsy but arousable.
Managing airway well, 4L N/C sp02 94-98%.
BP stable, no ectopy noted. Normothermic.
Family updated regarding plan of care.
Pt. to remain in ICU overnight for monitoring.
[2025-05-13] MEDS: SEVELAMER CARBONATE TUBE (17:03)
[2025-05-13] MEDS: LANTUS 0.2 UNITS SC (17:21)
[2025-05-13] MEDS: NOVOLOG FLEXPEN SC (17:22)
[2025-05-13] MEDS: LIPITOR 40 MG TUBE (17:29)
[2025-05-13] MEDS: SODIUM CHLORIDE 3% FOR INHALATION 1 VIAL INH (17:31)
[2025-05-13 17:32] LABS: Glucose - Point of Care 141 mg/dl (70-99)
[2025-05-13] MEDS: ANTIFUNGAL CLEAR 1 APPLIC TOPICAL (19:44)
--- NOTE | 2025-05-13 20:26 | PTCARENOTE ---
received patient from [facility], assessments completed. patient axo but groggy, able to tell me name and . no c/o pain or discomfort. no c/o of difficulty breathing or SOB, no pain with inspiration. evening meds given via peg tube with no
issues, tube flushed well. lotion applied to b/l legs. Fungal cream to groin/sacrum, patient resting comfortably at this time, no further needs, call [facility] with in reach
[2025-05-13] MEDS: MYSOLINE 50 MG TUBE (21:55)
[2025-05-14] VITALS (21 sets, daily range): BP systolic 94–159; BP diastolic 41–88; PULSE 2–74; O2SAT 95; BMI 32.2
[2025-05-14 00:10] LABS: Glucose - Point of Care 126 mg/dl (70-99)
--- NOTE | 2025-05-14 03:52 | PTCARENOTE ---
patient on cpap at HS, states he should use one at home, but he doesnt. SPACE CONTROL AGENT applied cpap setting of 8, patient tolerating well
[2025-05-14 05:50] LABS: Glucose - Point of Care 115 mg/dl (70-99)
[2025-05-14] MEDS: NOVOLOG FLEXPEN SC (05:59)
[2025-05-14] MEDS: NOVOLOG FLEXPEN-LOW RESISTANCE SC ×5 (06:00→23:43)
--- NOTE | 2025-05-14 06:20 | PTCARENOTE ---
labs redrawn and sent at 0620 as tutu from lab says they cant find my 4 tubes.
will inform dayshift to follow up with results
[2025-05-14 06:27] LABS: Venous Blood Gas B.E. 0.8 mmol/L (-4 to +4); Venous Blood Gas O2 Sat % 98.2 %
[2025-05-14 06:53] LABS: ALT (SGPT) 32 U/L (0-50); AST (SGOT) 30 U/L (17-59); Albumin 3.1 g/dl (3.5-5.0); Alkaline Phosphatase 119 U/L (38-126); Blood Urea Nitrogen 32 mg/dl (9-20); Calcium 9.0 mg/dl (8.4-10.2); Carbon Dioxide 26 mmol/L (22-30); Chloride 105 mmol/L (98-107); Estimated Creatinine Clearance 43 ml/min; Glucose 108 mg/dl (70-99); Hematocrit 36.2 % (39.0-52.0); Hemoglobin 11.5 g/dL (13.0-18.0); LDH 163 U/L (120-246); Mean Corp Hgb Conc. 31.8 g/dL (33.0-37.0); Mean Corpuscular Volume 91.2 fL (80.0-94.0); Nucleated Red Blood Cells % 0 % (-); Platelet Count 272 10^3/uL (130-400); Potassium 3.7 mmol/L (3.5-5.1); Red Cell Dist. Width 16.0 % (11.5-14.5); Sodium 136 mmol/L (135-145); Total Protein 5.7 g/dl (6.3-8.2); eGFR 36.56
--- NOTE | 2025-05-14 07:44 | PTCARENOTE ---
0700: Assumed care. Patient in bed on 4L of oxygen via nasal cannula
- AAO x3 Denies pain;
-Normal Sinus Rhythm at 68 BP via RT upper arm: 117/40 MAP 63;
-Lungs course, 4L (chronic 4L) POX 94% No cough; No SOB Respiration even
-Abdomen soft; PEG tube NPO
-Incontinent of urine
-Lines: RT chest Dialysis port dressing intact and dry. Peripheral lines capped flushed
-HOB elevated call [facility] within reach
[2025-05-14] MEDS: LOPRESSOR TUBE ×2 (07:50→09:41)
[2025-05-14] MEDS: SEVELAMER CARBONATE 0.8 GM TUBE ×3 (07:58→18:27)
[2025-05-14] MEDS: HEPARIN 5000 UNITS SC ×3 (07:59→23:07)
[2025-05-14] MEDS: STERILE WATER FOR INJECTION 10 ML IV (07:59)
[2025-05-14] MEDS: MAXIPIME 1000 MG IV (07:59)
[2025-05-14] MEDS: APRESOLINE TUBE ×5 (07:59→22:15)
[2025-05-14] MEDS: FLAGYL 500 MG 100 IV ×3 (08:00→23:07)
[2025-05-14] MEDS: LEXAPRO 20 MG TUBE (08:00)
[2025-05-14] MEDS: PREVACID 15 MG TUBE ×2 (08:01→19:44)
[2025-05-14] MEDS: SYNTHROID 150 MCG TUBE (08:02)
[2025-05-14] MEDS: HYDROPHOR 1 APPLIC TOPICAL (08:05)
[2025-05-14] MEDS: LAC HYDRIN, AM LACTIN LOTION 1 APPLIC TOPICAL (08:08)
--- NOTE | 2025-05-14 08:11 | W.PN.NEPH.PH ---
Today's Communication / Plan
-
Hd friday
holds on anti-htns
Assessment/Plan
-
Impression:
Complicated pneumonia -on pneumonia with possible large parapneumonic effusion, non-septic
ESRD -still makes urine, HD Friday
Insulin-dependent diabetes
PEG
CHF
Hyperphosphatemia
CAD
Hypothyroidism
Plan:
-Next dialysis will be planned for Friday
- Appropriate dietary and fluid restrictions to be ordered
-Chest x-ray reviewed this morning lung appears to be collapsing again by report
- Maintain phosphate binders for hyperphosphatemia
-hemodynamically labile this am, will put holds on metoprolol
- Antibiotics to be renally dosed for ESRD in setting of pneumonia
-
-
Date of Service: May 14, 2025
CC / HPI / ROS
-
Chief Complaint:
ESRD
History of Present Illness:
ESRD Friday
Hypotensive this a.m.
Remains on nasal cannula oxygen
Review of Systems:
No reported shortness of breath or chest pain
No fevers
Labs
-
Labs:
WBC 15.1 10^3/uL (4.8-10.8) H 05/14/25 06:15
RBC 3.97 10^6/uL (4.70-6.10) L 05/14/25 06:15
Hgb 11.5 g/dL (13.0-18.0) L 05/14/25 06:15
Hct 36.2 % (39.0-52.0) L 05/14/25 06:15
Plt Count 272 10^3/uL (130-400) D 05/14/25 06:15
Sodium 136 mmol/L (135-145) 05/14/25 06:15
Potassium 3.7 mmol/L (3.5-5.1) 05/14/25 06:15
Chloride 105 mmol/L (98-107) 05/14/25 06:15
Carbon Dioxide 26 mmol/L (22-30) 05/14/25 06:15
BUN 32 mg/dl (9-20) H 05/14/25 06:15
Creatinine 1.9 mg/dL (0.7-1.3) H 05/14/25 06:15
eGFR 36.56 05/14/25 06:15
Glucose 108 mg/dl (70-99) H 05/14/25 06:15
Calcium 9.0 mg/dl (8.4-10.2) D 05/14/25 06:15
Dwl-R-Cnuhlypptnb Pept 6220 pg/ml 05/12/25 23:09
Albumin 3.1 g/dl (3.5-5.0) L 05/14/25 06:15
Physical Exam
-
Vital Signs:
Vital Signs
Temp Pulse Resp BP Pulse Ox
97.5 F 65 17 117/40 95
05/14/25 07:00 05/14/25 07:59 05/14/25 06:30 05/14/25 07:59 05/14/25 06:30
Cardiovascular:: Regular rate and rhythm
Respiratory:: Bilateral: Coarse
Lung Excursion:: Normal
Abdomen:: Nontender and Soft
Bowel Sounds:: Normal
Extremity Edema:: +1: Bilateral:
Guerra Catheter: No
[2025-05-14] MEDS: BUMEX 2 MG TUBE (08:12)
[2025-05-14] MEDS: DAILY VITAMIN/CENTRUM 15 ML TUBE (08:13)
[2025-05-14] MEDS: ANTIFUNGAL CLEAR 1 APPLIC TOPICAL ×2 (08:14→23:06)
[2025-05-14] MEDS: SODIUM CHLORIDE 3% FOR INHALATION 1 VIAL INH ×3 (08:19→19:58)
[2025-05-14] MEDS: DUONEB 3 ML INH (08:19)
--- NOTE | 2025-05-14 08:32 | PHA.VAN.FU ---
Vancomycin Assessment / Plan
- Assessment
Hemodialysis Schedule: MWF
In the past 24 hrs, patient has been: Afebrile
Concomitant Antimicrobials: cefepime, metronidazole
- Dosing Plan
Dosing by Level: Hold off on dosing today
- Monitoring Plan
No level(s) ordered at this time: consider for 05/16
- Follow Up
Pharmacy will continue to follow.
Vancomycin Follow UP
- -
Patient Age: 74
Patient Sex: Male
Vancomycin Day #: 2
Indication: Pulmonary/Respiratory
Requesting Provider: Dr. Cowart
Pertinent Antimicrobial Allergies:
penicillins - unknown
sulfonamide antibiotics - unknown
Height / Weight:
Height 6 ft
Actual Weight 107.5 kg
Pertinent Past Medical History: ESRD on HD MWF, COPD (home O2), DM
- Vital Signs / Lab Results
Temp Pulse Resp BP Pulse Ox
97.5 F 67 18 99/42 98
05/14/25 07:00 05/14/25 08:24 05/14/25 08:24 05/14/25 08:12 05/14/25 08:24
Lab Results - Hematology
05/12/25 05/13/25 05/14/25
22:38 08:15 06:15
WBC 22.0 H Cancelled 15.1 H
Lab Results - Chemistry
05/12/25 05/13/25 05/14/25
22:38 08:15 06:15
BUN 42 H Cancelled 32 H
Creatinine 1.9 H Cancelled 1.9 H
Estimated Creat Clear Cancelled 43
Albumin 4.0 Cancelled 3.1 L
05/13/25 05/13/25
00:46 04:45
Lactic Acid 0.8 Cancelled
Microbiology Results
05/13/25 00:46 Blood Culture - Preliminary
Blood/Venous No Growth in 24 hours- Final report to follow
05/13/25 00:46 Blood Culture - Preliminary
Blood/Venous No Growth in 24 hours- Final report to follow
05/13/25 15:56 Nasal Screen MRSA (PCR) - Final
Nose MRSA not detected - performed by PCR methodology.
05/12/25 22:38 Influenza Types A & B (LAURA) - Final
Nasal Swab Negative for Influenza A & B, NAAT
Negative results must be combined with clinical observations
and patient history.
Nucleic Acid Amplification test (NAAT)performed on the
[employer] platform.
Therapeutic Drug Monitoring
Random Vancomycin 17.2 ug/ml 05/14/25 06:15
--- NOTE | 2025-05-14 13:00 | W.PN.INTV ---
Today's Communication / Plan
Recommendations
- NIF testing
- Initiate nightly BiPAP and also when sleeping and as needed
- CXR in AM
- Airway clearance with 3% NS, Albuterol TID
Assessment
-
Patient is a 74-year-old male with previous history of Guillain-Wright� syndrome, COPD, chronic respiratory failure on home oxygen, diabetes, end-stage renal disease on HD MWF, PE/DVT, chronic dysphagia status post PEG presenting to ER from [facility] with fevers, cough and shortness of breath. He has been having difficulty with expectorating mucus. He is quite immobile from his neuromuscular disease and can use his upper extremities to a limited degree. Chest x-ray obtained indicating
left-sided whiteout with suspicion for mucous plugging. He is currently 97% on room air.
We are consulted for evaluation.
Conditions present prior to admission
Guillain-Wright� syndrome
Chronic respiratory failure on home oxygen
History of COPD
ESRD on HD MWF
PE DVT history
Diabetes
Chronic dysphagia status post PEG
Obesity
Hypertension
GERD
Macular degeneration
Ulcerative colitis
Sick sinus syndrome
Assessment and plan:
#1. Acute on chronic left-sided bronchial obstruction likely from mucous plugging
-S/p bronchoscopy with airway clearance on 05/13 with significant improvement
-X-ray this morning again shows partial volume loss on the left side
-Patient has very poor cough and also concomitant suspected neuromuscular weakness with poor clearance of airway
-Might need CoughAssist, will assess response to trial of BiPAP and airway clearance
- Continue broad-spectrum antibiotic, follow-up on cultures
#2. 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
-NIF testing, very weak cough with poor expectoration of secretions
-VBG reviewed this morning, compensated hypercapnia noted again suggestive of underlying nocturnal hypoventilation
-Initiate BiPAP 12 x 6, nightly, during napping and as needed
-Add flutter valve, chest physical therapy
-Depending upon response to airway clearance, patient likely will need CoughAssist
-Increase hypertonic saline to 3 times daily nebulizer along with albuterol 3 times daily.
-NIF testing
-Initiate BiPAP nightly and also when napping in addition to as needed
-Patient is profoundly deconditioned and has been in various health facilities over the last 7 months, currently essentially bedbound
Other medical diagnoses:
- End-stage renal disease, on hemodialysis, nephrology service on case
- Insulin-dependent diabetes mellitus, on Lantus and scheduled short-acting along with sliding scale insulin
- Chronic dysphagia, currently on tube feeding via PEG tube
- Hypothyroidism
- Hypertension
- Macular degeneration
- History of VTE, not currently on anticoagulation
Critical Care time 56 mins -- The patient is admitted for acute critical illness for the treatment of vital organ failure and/or prevention of further life-threatening conditions. Total care includes time spent in review of history, physical exam,
medications, hemodynamic/ventilator parameters, laboratory data, imaging and discussion with house staff, pharmacy, respiratory therapy, felt hat pouncing operator hand, and nursing.
Diagnostic Data
Chest X-Ray: 05/12/25. Complete whiteout of the left lung, with volume loss of the left hemithorax, suggestive of left lung atelectasis. Left pleural effusion may also be present.
2. Right lung is clear.
CT Scan: CHEST 05/12/25. Frothy secretions are seen within the left mainstem bronchus, resulting in total bronchial obstruction and atelectasis of the entire left lung. Consider bronchoscopy to exclude obstructing endobronchial mass.
2. Moderate left pleural effusion without CT evidence of significant loculation. No large pleural-based mass is appreciated, although evaluation is limited without intravenous contrast.
3. Severe coronary arterial calcification. Please correlate with symptoms of and risk factors for coronary artery disease, with further workup as clinically appropriate.
Subjective Dataa
Subjective Data
Date of Service:
Date of Service: May 14, 2025
Subjective:
Patient comfortably lying in bed in no acute distress.
Review of Systems
Genitourinary: Other (All 14 systems reviewed and negative except as stated above in the history of present illness.)
Objective Data
Data Reviewed
Vital Signs / I&O / Oxygen:
Vital Signs
Temp Pulse Resp BP Pulse Ox
98.1 F 67 18 99/42 98
05/14/25 12:42 05/14/25 08:24 05/14/25 08:24 05/14/25 08:12 05/14/25 08:24
Intake and Output
05/13/25 05/14/25 05/15/25
06:59 06:59 06:59
Intake Total 800 / 800 100 / 100
Output Total 150 / 150 0 / 0
Balance 650 / 650 100 / 100
SaO2 98
Nasal Cannula flow liters per 4
minute
Physical Exam
General: Comfortable
HEENT: Normocephalic
Cardiovascular: S1-S2
Respiratory: Crackles (Few inspiratory crackles mostly on left side)
GI: Soft
Neurology: Awake and Alert
Skin: Warm
Labs/Micro/Reports
Lab Data
05/14/25 06:15
05/14/25 06:15
Laboratory Results
05/13/25
08:39
PT Cancelled
INR Cancelled
Microbiology
05/13/25 15:56 Bronch Washing Respiratory Culture - Preliminary
05/13/25 15:56 Bronch Washing Gram Stain - Preliminary
05/13/25 00:46 Blood/Venous Blood Culture - Preliminary
No Growth in 24 hours- Final report to follow
05/13/25 00:46 Blood/Venous Blood Culture - Preliminary
No Growth in 24 hours- Final report to follow
05/13/25 15:56 Nose Nasal Screen MRSA (PCR) - Final
MRSA not detected - performed by PCR methodology.
05/12/25 22:38 Nasal Swab Influenza Types A & B (LAURA) - Final
Negative for Influenza A & B, NAAT
Negative results must be combined with clinical observations
and patient history.
Nucleic Acid Amplification test (NAAT)performed on the
[employer] platform.
--- NOTE | 2025-05-14 13:05 | W.PN.HOSP.TC ---
Today's Communication/Plan
-
Monitor vital signs see plan
Start tube feeds
Continue with antibiotics
Wean oxygen as tolerated
Hypertonic saline nebs
nif
Assessment / Plan
Assessment / Plan
General: Well Developed, Well Nourished and No Apparent Distress
HEENT: NormoCephalic, Moist mucous membranes, Atraumatic, PERRLA and Oxygen
Respiratory: Decreased Breath Sounds
Cardiac: S1/S2 and Regular Rhythm; No Murmur or Rub
GI: Soft, Non Tender, Non Distended, Normal Bowel Sounds and Peg Tube
Musculoskeletal: No Edema
Neuro: AO x 3, No Sensory Deficits and Other (2 out of 4 strength in the bilateral upper extremity, 2 out of 4 strength in the bilateral lower extremity)
Psych: Calm
Sepsis secondary to complicated pneumonia
CT chest with frothy secretions within the left mainstem bronchus, resulting in total bronchial obstruction and atelectasis of entire left lung. Pulmonary following. Status post [facility] [place] [facility] Follow cultures. Does not appear there was a whole lot
of mucus. Suspect secondary to atelectasis possible from Guillian Sasabe. discussed with Independent Consultant, need NIF testing
Blood cultures NGTD
Hypertonic saline, albuterol
Agree with pulmonary, suspect acute on chronic mucous plugging from poor airway clearance
Acute on chronic hypoxic respiratory failure, discussed with spouse, appears on continuous 2 L oxygen at [facility]. Wean oxygen as tolerated
- Supplemental oxygen
- BiPAP at bedtime
Continue Vanco, cefepime and Flagyl
ESRD -still makes urine, HD Friday
- Nephrology following for HD
- Fluid restricted diet
- Renal dose medication
- continue sevelamer
Insulin-dependent diabetes
- Lantus 20 every afternoon
- Regular insulin 4 units SC twice daily
- Sliding scale every 6 hours
History of Guillian Sasabe
s/p PEG tube
Tube Feeding
- Patient on Nepro 7 5 mL per x 18 hours, starting at 3 PM to 9 AM at the [facility]
Start tube feeding per dietary recs
CHF, unknown EF
suspect acute on chronic exacerbation
- HD as above
- Continue Bumex daily
- Daily weights
- Continue hydralazine 25 4 times daily with holding parameter
Hypothyroidism
Continue with levothyroxine
Insulin-dependent diabetes mellitus
Continue with insulin
Accu-Cheks, sliding scale
History of COPD
PE/DVT history
Chronic dysphagia
Macular degeneration
Hypertension
DVT PPX - heparin sq
Code status - Full Code
I spent a total of 54 minutes with the patient or on the floor. More than 50% of this time involved counseling and coordination of care.
Anticipated Discharge: > 48 hours
Subjective/Interval History
-
Date of Service: May 14, 2025
denies pain
Objective Data
-
Labs:
Laboratory Results
05/14/25
06:15
WBC 15.1 H
Hgb 11.5 L
Hct 36.2 L
Plt Count 272 D
Sodium 136
Potassium 3.7
Chloride 105
Carbon Dioxide 26
BUN 32 H
Creatinine 1.9 H
Glucose 108 H
Calcium 9.0 D
Total Bilirubin 0.6
AST 30
ALT 32
Alkaline Phosphatase 119
Vital Signs:
Vital Signs
Temp Pulse Resp BP Pulse Ox
98.1 F 67 18 99/42 98
05/14/25 12:42 05/14/25 08:24 05/14/25 08:24 05/14/25 08:12 05/14/25 08:24
I&O
05/13/25 05/14/25 05/15/25
06:59 06:59 06:59
Intake Total 800 / 800 100 / 100
Output Total 150 / 150 0 / 0
Balance 650 / 650 100 / 100
[2025-05-14] MEDS: VENTOLIN NEBULES 2.5 MG INH ×2 (14:50→19:58)
[2025-05-14 15:17] LABS: Glucose - Point of Care 118 mg/dl (70-99)
[2025-05-14] MEDS: LANTUS 0.2 UNITS SC (18:23)
[2025-05-14 18:31] LABS: Glucose - Point of Care 128 mg/dl (70-99)
[2025-05-14] MEDS: LIPITOR 40 MG TUBE (18:31)
[2025-05-14] MEDS: NOVOLOG FLEXPEN 4 UNITS SC (18:32)
[2025-05-14] MEDS: LOPRESSOR 25 MG TUBE (19:44)
[2025-05-14] MEDS: MYSOLINE 50 MG TUBE (23:06)
[2025-05-14] MEDS: APRESOLINE 25 MG TUBE (23:08)
[2025-05-14 23:53] LABS: Glucose - Point of Care 142 mg/dl (70-99)
[2025-05-15] VITALS (16 sets, daily range): BP systolic 126–148; BP diastolic 46–114; PULSE 2–70; BMI 30.7
--- NOTE | 2025-05-15 02:08 | PTCARENOTE ---
received pt from dayshift rn, assessments completed. son at bedside, had questions regarding fathers skin/wounds. wanted to know if we had photos, i instructed him to contact medical records if he wanted any information regarding his condition
upon arrival to our hospital. patient resting in bed comfortably offers no c/o pain or sob
vital signs stable, tube feed running with no issue, will increase at midnight to 40
--- NOTE | 2025-05-15 02:11 | PTCARENOTE ---
patient bladder scanned by tech, no output as of yet, per bladder scan x 2 patient had 24 and 29 ml.
will rescan at 0400 with labs
[2025-05-15 03:36] LABS: Hematocrit 30.3 % (39.0-52.0); Hemoglobin 9.6 g/dL (13.0-18.0); Mean Corp Hgb Conc. 31.7 g/dL (33.0-37.0); Mean Corpuscular Volume 90.4 fL (80.0-94.0); Nucleated Red Blood Cells % 0 % (-); Platelet Count 313 10^3/uL (130-400); Red Cell Dist. Width 16.0 % (11.5-14.5)
[2025-05-15 03:54] LABS: ALT (SGPT) 34 U/L (0-50); AST (SGOT) 29 U/L (17-59); Albumin 3.2 g/dl (3.5-5.0); Alkaline Phosphatase 130 U/L (38-126); Blood Urea Nitrogen 46 mg/dl (9-20); Calcium 9.3 mg/dl (8.4-10.2); Carbon Dioxide 25 mmol/L (22-30); Chloride 104 mmol/L (98-107); Estimated Creatinine Clearance 30 ml/min; Glucose 165 mg/dl (70-99); Potassium 3.7 mmol/L (3.5-5.1); Sodium 135 mmol/L (135-145); Total Protein 5.8 g/dl (6.3-8.2); eGFR 23.98
--- NOTE | 2025-05-15 05:55 | PTCARENOTE ---
patient bladder scanned at 0400 for 210. patient requested urinal, a new one was gotten to obtain UA/CS however patient had already voided in his bed. patient bathed and changed, will have dayshift attempt sample.
[2025-05-15] MEDS: NOVOLOG FLEXPEN 4 UNITS SC ×2 (06:11→18:03)
[2025-05-15] MEDS: NOVOLOG FLEXPEN-LOW RESISTANCE 1 UNITS SC (06:14)
[2025-05-15] MEDS: SYNTHROID 150 MCG TUBE (06:17)
[2025-05-15 06:25] LABS: Glucose - Point of Care 178 mg/dl (70-99)
--- NOTE | 2025-05-15 06:56 | PHA.VAN.FU ---
Vancomycin Assessment / Plan
- Assessment
Hemodialysis Schedule: MWF
- Dosing Plan
Dosing by Level: Hold off on dosing today
- Monitoring Plan
Random Level: 05/16 IN AM
- Follow Up
Pharmacy will continue to follow.
Vancomycin Follow UP
- -
Patient Age: 74
Patient Sex: Male
Vancomycin Day #: 3
Indication: Pulmonary/Respiratory
Requesting Provider: Dr. Cowart
Pertinent Antimicrobial Allergies:
penicillins - unknown
sulfonamide antibiotics - unknown
Height / Weight:
Height 6 ft
Actual Weight 102.6 kg
Pertinent Past Medical History: ESRD on HD MWF, COPD (home O2), DM
- Vital Signs / Lab Results
Temp Pulse Resp BP Pulse Ox
99.2 F 74 21 140/50 94
05/15/25 03:00 05/14/25 23:30 05/14/25 23:30 05/14/25 23:08 05/14/25 23:30
Lab Results - Hematology
05/12/25 05/13/25 05/14/25
22:38 08:15 06:15
WBC 22.0 H Cancelled 15.1 H
05/15/25
03:19
WBC 16.7 H
Lab Results - Chemistry
05/12/25 05/13/25 05/14/25
22:38 08:15 06:15
BUN 42 H Cancelled 32 H
Creatinine 1.9 H Cancelled 1.9 H
Estimated Creat Clear Cancelled 43
Albumin 4.0 Cancelled 3.1 L
05/15/25
03:19
BUN 46 H
Creatinine 2.7 H
Estimated Creat Clear 30
Albumin 3.2 L
05/13/25 05/13/25
00:46 04:45
Lactic Acid 0.8 Cancelled
Microbiology Results
05/13/25 00:46 Blood Culture - Preliminary
Blood/Venous No Growth in 48 hours- Final report to follow
05/13/25 00:46 Blood Culture - Preliminary
Blood/Venous No Growth in 48 hours- Final report to follow
05/13/25 15:56 Respiratory Culture - Preliminary
Bronch Washing Gram Stain - Preliminary
05/13/25 15:56 Nasal Screen MRSA (PCR) - Final
Nose MRSA not detected - performed by PCR methodology.
Therapeutic Drug Monitoring
Random Vancomycin 17.2 ug/ml 05/14/25 06:15
[2025-05-15] MEDS: MAXIPIME 1000 MG IV (07:46)
[2025-05-15] MEDS: SEVELAMER CARBONATE 0.8 GM TUBE ×3 (07:46→16:51)
[2025-05-15] MEDS: DAILY VITAMIN/CENTRUM 15 ML TUBE (07:46)
[2025-05-15] MEDS: APRESOLINE 25 MG TUBE ×4 (07:47→21:05)
[2025-05-15] MEDS: STERILE WATER FOR INJECTION 10 ML IV (07:48)
[2025-05-15] MEDS: LOPRESSOR 25 MG TUBE ×2 (07:48→19:28)
[2025-05-15] MEDS: PREVACID 15 MG TUBE ×2 (07:48→19:28)
[2025-05-15] MEDS: LEXAPRO 20 MG TUBE (07:48)
[2025-05-15] MEDS: HEPARIN 5000 UNITS SC ×2 (07:49→16:51)
[2025-05-15] MEDS: MIRALAX 4.25 GRAMS TUBE (07:49)
[2025-05-15] MEDS: FLAGYL 500 MG 100 IV (07:50)
[2025-05-15] MEDS: ANTIFUNGAL CLEAR 1 APPLIC TOPICAL ×2 (07:51→19:45)
[2025-05-15] MEDS: HYDROPHOR 1 APPLIC TOPICAL (07:52)
[2025-05-15] MEDS: LAC HYDRIN, AM LACTIN LOTION 1 APPLIC TOPICAL (07:55)
[2025-05-15] MEDS: BUMEX 2 MG TUBE (08:12)
--- NOTE | 2025-05-15 08:13 | PTCARENOTE ---
- 0700 assumed care; patient in bed; On BIPAP overnight;
-AAO x3;
-BP via RT Upper Arm: 135/54; Normal Sinus Rhythm 66; S1/S2 No Murmur; +1 B/l LE non-pitting edema;
- Lungs Course through; On SpO2: 2L via nasal Canula 97% No SOB; RR 19 even non labor; on SPORT bed; chest Precaution done
-Abdomen soft non-tender round; Normal Bowel Sound present x 4 Quadrants; Miralex adm per order. NPO; PEG Tube Auscultated placement; No redness noted around PEG tube insertio site. All meds adm via PEG tube. TF: At Goal - Nephro 55/hr w water Auto
Flush 25/hr . No residuals
-On Dialysis M/W/F; Incontinent of urine ;
-Lines: RT chest Dialysis . Peripheral lines : RT FA and RT hand capped flushed
-
[2025-05-15] MEDS: SODIUM CHLORIDE 3% FOR INHALATION 1 VIAL INH ×3 (08:19→19:16)
[2025-05-15] MEDS: VENTOLIN NEBULES 2.5 MG INH ×3 (08:19→19:16)
--- NOTE | 2025-05-15 09:39 | W.PN.NEPH.PH ---
Today's Communication / Plan
-
Hd tomorrow
Assessment/Plan
-
Impression:
Complicated pneumonia -on pneumonia with possible large parapneumonic effusion, non-septic (lung atelectasis)
Eric Wright�
ESRD -still makes urine, HD Friday
Insulin-dependent diabetes
PEG
CHF
Hyperphosphatemia
CAD
Hypothyroidism
Plan:
-Next dialysis will be planned for Friday,orders provided
- Appropriate dietary and fluid restrictions to be ordered
-Chest x-ray reviewed this morning lung appears to be collapsing again by report
- Maintain phosphate binders for hyperphosphatemia
-hemodynamically labile this am, will put holds on metoprolol
- Antibiotics to be renally dosed for ESRD in setting of pneumonia
-
-
Date of Service: May 15, 2025
CC / HPI / ROS
-
Chief Complaint:
ESRD
History of Present Illness:
ESRD Friday
Requiring BiPAP at night for lung atelectasis
Remains on nasal cannula oxygen
Review of Systems:
No reported shortness of breath or chest pain
Febrile overnight
Labs
-
Labs:
WBC 16.7 10^3/uL (4.8-10.8) H 05/15/25 03:19
RBC 3.35 10^6/uL (4.70-6.10) L 05/15/25 03:19
Hgb 9.6 g/dL (13.0-18.0) L 05/15/25 03:19
Hct 30.3 % (39.0-52.0) L 05/15/25 03:19
Plt Count 313 10^3/uL (130-400) 05/15/25 03:19
Sodium 135 mmol/L (135-145) 05/15/25 03:19
Potassium 3.7 mmol/L (3.5-5.1) 05/15/25 03:19
Chloride 104 mmol/L (98-107) 05/15/25 03:19
Carbon Dioxide 25 mmol/L (22-30) 05/15/25 03:19
BUN 46 mg/dl (9-20) H 05/15/25 03:19
Creatinine 2.7 mg/dL (0.7-1.3) H 05/15/25 03:19
eGFR 23.98 05/15/25 03:19
Glucose 165 mg/dl (70-99) H 05/15/25 03:19
Calcium 9.3 mg/dl (8.4-10.2) 05/15/25 03:19
Zvx-F-Mgwxttyedpp Pept 6220 pg/ml 05/12/25 23:09
Albumin 3.2 g/dl (3.5-5.0) L 05/15/25 03:19
Physical Exam
-
Vital Signs:
Vital Signs
Temp Pulse Resp BP Pulse Ox
98.7 F 68 18 135/45 98
05/15/25 07:39 05/15/25 08:26 05/15/25 08:26 05/15/25 08:12 05/15/25 08:26
Cardiovascular:: Regular rate and rhythm
Respiratory:: Bilateral: Coarse
Lung Excursion:: Normal
Abdomen:: Nontender and Soft
Bowel Sounds:: Normal
Extremity Edema:: +1: Bilateral:
Guerra Catheter: No
Other Findings::
PEG
--- NOTE | 2025-05-15 09:49 | W.PN.INTV ---
Today's Communication / Plan
Recommendations
- DC IV vancomycin and Flagyl, continue cefepime and follow-up on cultures
- Patient stable for transfer out of ICU, pulmonary team will continue to follow along
Assessment
-
Patient is a 74-year-old male with previous history of Guillain-Wright� syndrome, COPD, chronic respiratory failure on home oxygen, diabetes, end-stage renal disease on HD MWF, PE/DVT, chronic dysphagia status post PEG presenting to ER from [facility] with fevers, cough and shortness of breath. He has been having difficulty with expectorating mucus. He is quite immobile from his neuromuscular disease and can use his upper extremities to a limited degree. Chest x-ray obtained indicating
left-sided whiteout with suspicion for mucous plugging. He is currently 97% on room air.
We are consulted for evaluation.
Conditions present prior to admission
Guillain-Wright� syndrome
Chronic respiratory failure on home oxygen
History of COPD
ESRD on HD MWF
PE DVT history
Diabetes
Chronic dysphagia status post PEG
Obesity
Hypertension
GERD
Macular degeneration
Ulcerative colitis
Sick sinus syndrome
Assessment and plan:
#1. Acute on chronic left-sided bronchial obstruction likely from mucous plugging
-S/p bronchoscopy with airway clearance on 05/13 with significant improvement
-X-ray 05/14 showed worsening atelectasis again, responded well to BiPAP as well as airway clearance measures with improving chest x-ray 05/15
-Patient has very poor cough and also concomitant suspected neuromuscular weakness with poor clearance of airway
-Attempted to use CoughAssist, patient having hard time working with CoughAssist
-MRSA screen negative discontinue vancomycin, discontinue Flagyl. Continue cefepime for now and follow-up on respiratory cultures.
#2. 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
-NIF testing -25 to -30, very weak cough with poor expectoration of secretions
-VBG reviewed, compensated hypercapnia noted again suggestive of underlying nocturnal hypoventilation
-Initiated BiPAP 12 x 6, nightly, during napping and as needed. Patient will need long-term PAP therapy postdischarge
-Continue flutter valve, chest physical therapy
-Depending upon clinical course, will reattempt CoughAssist in coming days
-Continue hypertonic saline to 3 times daily nebulizer along with albuterol 3 times daily.
-Patient is profoundly deconditioned and has been in various health facilities over the last 7 months, currently essentially bedbound
Other medical diagnoses:
- End-stage renal disease, on hemodialysis, nephrology service on case
- Insulin-dependent diabetes mellitus, on Lantus and scheduled short-acting along with sliding scale insulin
- Chronic dysphagia, currently on tube feeding via PEG tube
- Hypothyroidism
- Hypertension
- Macular degeneration
- History of VTE, not currently on anticoagulation
Critical Care time 46 mins -- The patient is admitted for acute critical illness for the treatment of vital organ failure and/or prevention of further life-threatening conditions. Total care includes time spent in review of history, physical exam,
medications, hemodynamic/ventilator parameters, laboratory data, imaging and discussion with house staff, pharmacy, respiratory therapy, [facility], and nursing.
Diagnostic Data
Chest X-Ray: 05/12/25. Complete whiteout of the left lung, with volume loss of the left hemithorax, suggestive of left lung atelectasis. Left pleural effusion may also be present.
2. Right lung is clear.
CT Scan: CHEST 05/12/25- . Frothy secretions are seen within the left mainstem bronchus, resulting in total bronchial obstruction and atelectasis of the entire left lung. Consider bronchoscopy to exclude obstructing endobronchial mass.
2. Moderate left pleural effusion without CT evidence of significant loculation. No large pleural-based mass is appreciated, although evaluation is limited without intravenous contrast.
3. Severe coronary arterial calcification. Please correlate with symptoms of and risk factors for coronary artery disease, with further workup as clinically appropriate.
Subjective Dataa
Subjective Data
Date of Service:
Date of Service: May 15, 2025
Subjective:
Patient comfortably lying in bed no acute distress, he used BiPAP last night. Overall continues to do well.
Review of Systems
Genitourinary: Other (All 14 systems reviewed and negative except as stated above in the history of present illness.)
Objective Data
Data Reviewed
Vital Signs / I&O / Oxygen:
Vital Signs
Temp Pulse Resp BP Pulse Ox
98.7 F 68 18 135/45 98
05/15/25 07:39 05/15/25 08:26 05/15/25 08:26 05/15/25 08:12 05/15/25 08:26
Intake and Output
05/14/25 05/15/25 05/16/25
06:59 06:59 06:59
Intake Total 800 / 800 145 / 145
Output Total 150 / 150 0 / 0
Balance 650 / 650 145 / 145
SaO2 98
Nasal Cannula flow liters per 3
minute
Physical Exam
General: Comfortable
HEENT: Normocephalic
Cardiovascular: S1-S2
Respiratory: Crackles (Few inspiratory crackles mostly on left side) and Other (Weak cough)
GI: Soft
Neurology: Awake and Alert
Skin: Warm
Labs/Micro/Reports
Lab Data
05/15/25 03:19
05/15/25 03:19
Microbiology
05/13/25 00:46 Blood/Venous Blood Culture - Preliminary
No Growth in 48 hours- Final report to follow
05/13/25 00:46 Blood/Venous Blood Culture - Preliminary
No Growth in 48 hours- Final report to follow
05/13/25 15:56 Bronch Washing Respiratory Culture - Preliminary
05/13/25 15:56 Bronch Washing Gram Stain - Preliminary
05/13/25 15:56 Nose Nasal Screen MRSA (PCR) - Final
MRSA not detected - performed by PCR methodology.
05/12/25 22:38 Nasal Swab Influenza Types A & B (LAURA) - Final
Negative for Influenza A & B, NAAT
Negative results must be combined with clinical observations
and patient history.
Nucleic Acid Amplification test (NAAT)performed on the
[employer] platform.
--- NOTE | 2025-05-15 12:37 | W.PN.HOSP.TC ---
Addendum entered and electronically signed by Abelardo Cowart MD 05/15/25 14:47:
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
Original Note:
Today's Communication/Plan
-
Monitor vital signs and see plan
Continue with hypertonic saline inhalation
Continue cefepime
Wean oxygen as tolerated
PT
cw tube feeding
cw insulin
Transfer out of ICU if okay with insurance special agent
Assessment / Plan
Assessment / Plan
General: Well Developed, Well Nourished and No Apparent Distress
HEENT: NormoCephalic, Moist mucous membranes, Atraumatic, PERRLA and Oxygen
Respiratory: Decreased Breath Sounds
Cardiac: S1/S2 and Regular Rhythm; No Murmur or Rub
GI: Soft, Non Tender, Non Distended, Normal Bowel Sounds and Peg Tube
Musculoskeletal: No Edema
Neuro: AO x 3, No Sensory Deficits and Other (2 out of 4 strength in the bilateral upper extremity, 2 out of 4 strength in the bilateral lower extremity)
Psych: Calm
Sepsis secondary to complicated pneumonia
CT chest with frothy secretions within the left mainstem bronchus, resulting in total bronchial obstruction and atelectasis of entire left lung. Pulmonary following. Status post [facility] 17. Follow cultures. Does not appear there was a whole lot
of mucus. Suspect secondary to atelectasis possible from Guillian Burton. discussed with [employer], need NIF testing. NIF -25 to -30; very poor expectoration of secretions. Will need assistance with cough
Blood cultures NGTD
Hypertonic saline, albuterol
Agree with pulmonary, suspect acute on chronic mucous plugging from poor airway clearance
Acute on chronic hypoxic respiratory failure, discussed with spouse, appears on continuous 2 L oxygen at [place]. Wean oxygen as tolerated
- Supplemental oxygen
- BiPAP at bedtime
DC vancomycin, Flagyl. Continue with cefepime for now
ESRD -still makes urine, HD Friday
- Nephrology following for HD
- Fluid restricted diet
- Renal dose medication
- continue sevelamer
Insulin-dependent diabetes
- Lantus 20 every afternoon
- Regular insulin 4 units SC twice daily
- Sliding scale every 6 hours
History of Guillian Burton
s/p PEG tube
Tube Feeding
- Patient on Nepro 7 5 mL per x 18 hours, starting at 3 PM to 9 AM at the [facility]
Started tube feeding per dietary recs
CHF, unknown EF
suspect acute on chronic exacerbation
- HD as above
- Continue Bumex daily
- Daily weights
- Continue hydralazine 25 4 times daily with holding parameter
Hypothyroidism
Continue with levothyroxine
Insulin-dependent diabetes mellitus
Continue with insulin
Accu-Cheks, sliding scale
History of COPD
PE/DVT history
Chronic dysphagia
Macular degeneration
Hypertension
DVT PPX - heparin sq
Code status - Full Code
PT
I spent a total of 52 minutes with the patient or on the floor. More than 50% of this time involved counseling and coordination of care.
Anticipated Discharge: > 48 hours
Subjective/Interval History
-
Date of Service: May 15, 2025
denies pain
Objective Data
-
Labs:
Laboratory Results
05/15/25
03:19
WBC 16.7 H
Hgb 9.6 L
Hct 30.3 L
Plt Count 313
Sodium 135
Potassium 3.7
Chloride 104
Carbon Dioxide 25
BUN 46 H
Creatinine 2.7 H
Glucose 165 H
Calcium 9.3
Total Bilirubin 0.5
AST 29
ALT 34
Alkaline Phosphatase 130 H
Vital Signs:
Vital Signs
Temp Pulse Resp BP Pulse Ox
98.3 F 68 18 135/45 98
05/15/25 10:55 05/15/25 08:26 05/15/25 08:26 05/15/25 08:12 05/15/25 08:26
I&O
05/14/25 05/15/25 05/16/25
06:59 06:59 06:59
Intake Total 800 / 800 145 / 145
Output Total 150 / 150 0 / 0
Balance 650 / 650 145 / 145
[2025-05-15 13:25] LABS: Glucose - Point of Care 208 mg/dl (70-99)
[2025-05-15] MEDS: NOVOLOG FLEXPEN-LOW RESISTANCE 2 UNITS SC ×2 (14:06→18:04)
[2025-05-15] MEDS: LIPITOR 40 MG TUBE (16:51)
--- NOTE | 2025-05-15 17:26 | PTCARENOTE ---
Patient in bed AAO x 3. Normal Sinus Rhythm 72; BP via Rt upper arm 142/53 MAP 59; Afebrile ON 2 L of oxygen
[2025-05-15] MEDS: LANTUS 0.2 UNITS SC (18:00)
[2025-05-15 18:12] LABS: Glucose - Point of Care 224 mg/dl (70-99)
--- NOTE | 2025-05-15 19:59 | PTCARENOTE ---
Cannot verify vitals prior to 1899, previous shift. Received patient in bed, AAOx3, following commands, denying pain. NS 70s with a pacemaker, BP stable, afebrile. B/l trace LE edema, weak pedal pulses. 95% on 2 liters nasal cannula, lung sounds
diminished throughout. Abdomen soft, round, hypoactive bowel sounds. PEG tube, new tube feed hung with new tubing. Voids in urinal with assistance. Right chest HD cath, 2 PIVs patent, WNL. Foams on heels and sacrum CDI. Call [facility] within reach.
[2025-05-15] MEDS: MYSOLINE 50 MG TUBE (21:07)
[2025-05-16] VITALS (20 sets, daily range): BP systolic 99–162; BP diastolic 44–77; PULSE 2–67
[2025-05-16] MEDS: NOVOLOG FLEXPEN-LOW RESISTANCE 2 UNITS SC ×4 (00:03→23:01)
[2025-05-16] MEDS: HEPARIN 5000 UNITS SC ×4 (00:03→23:01)
[2025-05-16 00:12] LABS: Glucose - Point of Care 229 mg/dl (70-99)
[2025-05-16] MEDS: SYNTHROID 150 MCG TUBE (05:11)
[2025-05-16] MEDS: NOVOLOG FLEXPEN 4 UNITS SC (05:12)
[2025-05-16 05:20] LABS: Glucose - Point of Care 249 mg/dl (70-99)
[2025-05-16 05:24] LABS: Hematocrit 28.4 % (39.0-52.0); Hemoglobin 9.2 g/dL (13.0-18.0); Mean Corp Hgb Conc. 32.4 g/dL (33.0-37.0); Mean Corpuscular Volume 88.8 fL (80.0-94.0); Nucleated Red Blood Cells % 0 % (-); Platelet Count 281 10^3/uL (130-400); Red Cell Dist. Width 15.9 % (11.5-14.5)
[2025-05-16 06:00] LABS: ALT (SGPT) 24 U/L (0-50); AST (SGOT) 17 U/L (17-59); Albumin 3.2 g/dl (3.5-5.0); Alkaline Phosphatase 120 U/L (38-126); Blood Urea Nitrogen 55 mg/dl (9-20); Calcium 9.5 mg/dl (8.4-10.2); Carbon Dioxide 22 mmol/L (22-30); Chloride 104 mmol/L (98-107); Estimated Creatinine Clearance 28 ml/min; Glucose 254 mg/dl (70-99); Potassium 3.5 mmol/L (3.5-5.1); Sodium 135 mmol/L (135-145); Total Protein 5.7 g/dl (6.3-8.2); eGFR 22.01
[2025-05-16] MEDS: VENTOLIN NEBULES 2.5 MG INH ×3 (07:29→19:23)
[2025-05-16] MEDS: SODIUM CHLORIDE 3% FOR INHALATION 1 VIAL INH ×3 (07:29→19:23)
--- NOTE | 2025-05-16 08:30 | W.PN.PUL3 ---
Today's Communication / Plan
-
Continue serial NIF
Check left-sided chest ultrasound and if sufficient fluid present then consult IR for thoracentesis
Pulmonary toilet is pickett; may need repeat bronchoscopy if left-sided atelectasis worsens
Continue with support bed with nebulized bronchodilators + nebulized 3%
Continue with antibiotics per ID
Repeat CXR in 4 to 6 weeks to assure left-sided pneumonia has improved/resolved
Pulmonary service will continue to follow along
Assessment
-
Patient is a 74-year-old male with previous history of Guillain-Wright� syndrome, COPD, chronic respiratory failure on home oxygen, diabetes, end-stage renal disease on HD MWF, PE/DVT, chronic dysphagia status post PEG presenting to ER from [facility] with fevers, cough and shortness of breath. He has been having difficulty with expectorating mucus. He is quite immobile from his neuromuscular disease and can use his upper extremities to a limited degree. Chest x-ray obtained indicating
left-sided whiteout with suspicion for mucous plugging. He is currently 97% on room air.
We are consulted for evaluation.
Conditions present prior to admission
Guillain-Wright� syndrome
Chronic respiratory failure on home oxygen
History of COPD
ESRD on HD MWF
PE DVT history
Diabetes
Chronic dysphagia status post PEG
Obesity
Hypertension
GERD
Macular degeneration
Ulcerative colitis
Sick sinus syndrome
Assessment and plan:
#1. Acute on chronic left-sided bronchial obstruction likely from mucous plugging in the setting of left lung pneumonia/aspiration with pleural effusion
-S/p bronchoscopy by Dr. Eng with airway clearance on 05/13 with significant improvement
-X-ray 05/14 showed worsening atelectasis again, responded well to BiPAP as well as airway clearance measures with improving chest x-ray 05/15
-Patient has very poor cough and also concomitant suspected neuromuscular weakness with poor clearance of airway
-Attempted to use Cofflator -> pt did not tolerate
-Pulmonary toilet is pickett � start support bed with nebulized 3% + nebulized albuterol
-Serial CXR � may need repeat bronchoscopy if left-sided atelectasis worsens
-Check left sided chest ultrasound to assess for size of + pleural effusion � if at least moderately sized then would consult IR for thoracentesis
-MRSA screen negative discontinue vancomycin, discontinue Flagyl. Continue cefepime for now and follow-up on respiratory cultures (grew Pseudomonas aeruginosa and rare Staph aureus)
- ID consulted - defer ABx to them
- Trend WBC and monitor temperature curve
#2. 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
-NIF testing -25 to -30, very weak cough with poor expectoration of secretions
-Continue daily NIF
-VBG reviewed, compensated hypercapnia noted again suggestive of underlying nocturnal hypoventilation
-Initiated BiPAP 12/, nightly, during napping and as needed. Patient will need long-term PAP therapy postdischarge
-Continue flutter valve, chest physical therapy
-Continue hypertonic saline to 3 times daily nebulizer along with albuterol 3 times daily.
-Patient is profoundly deconditioned and has been in various health facilities over the last 7 months, currently essentially bedbound; PT/OT recommended
Goal BG 140�180
DVT prophylaxis
Other medical diagnoses:
- End-stage renal disease, on hemodialysis, nephrology service on case
- Insulin-dependent diabetes mellitus, on Lantus and scheduled short-acting along with sliding scale insulin
- Chronic dysphagia, currently on tube feeding via PEG tube
- Hypothyroidism
- Hypertension
- Macular degeneration
- History of VTE, not currently on anticoagulation
Pulmonary service will continue to follow
Diagnostic Data
Chest X-Ray: 05/12/25- . Complete whiteout of the left lung, with volume loss of the left hemithorax, suggestive of left lung atelectasis. Left pleural effusion may also be present.
2. Right lung is clear.
CT Scan: CHEST 05/12/25- . Frothy secretions are seen within the left mainstem bronchus, resulting in total bronchial obstruction and atelectasis of the entire left lung. Consider bronchoscopy to exclude obstructing endobronchial mass.
2. Moderate left pleural effusion without CT evidence of significant loculation. No large pleural-based mass is appreciated, although evaluation is limited without intravenous contrast.
3. Severe coronary arterial calcification. Please correlate with symptoms of and risk factors for coronary artery disease, with further workup as clinically appropriate.
Total time spent today was 56 minutes for this encounter. Time includes reviewing laboratory test/imaging results, reviewing pertinent medical records, obtaining and reviewing medical history, performing an appropriate exam, ordering medications,
tests and procedures. Time also includes documentation of this encounter, coordinating patient care and communicating with other healthcare professionals. Total time does not include separately billed tests performed on this date of service.
Subjective Data
-
Date of Service:
Date of Service: May 16, 2025
Chief Complaint: Pulmonary Follow Up
Subjective:
Patient seen and evaluated this morning. Currently saturating 94% on 1 L/min nasal cannula. Endorses a an occasional cough which is dry; denies SOB or chest pain. Heart rate 70, BP 127/47. Afebrile overnight.
Review of Systems
General: Other (Negative unless mentioned above)
Objective Data
Data Reviewed
Vital Signs / I&O / Oxygen:
Vital Signs
Temp Pulse Resp BP Pulse Ox
99.7 F 70 16 140/54 97
05/16/25 18:08 05/16/25 18:08 05/16/25 18:08 05/16/25 18:08 05/16/25 18:08
Intake and Output
05/15/25 05/16/25 05/17/25
06:59 06:59 06:59
Intake Total 145 / 145 900 / 900 910 / 910
Output Total 0 / 0 285 / 285
Balance 145 / 145 615 / 615 910 / 910
SaO2 97
Nasal Cannula flow liters per 2
minute
Physical Exam
General: Respiratory Distress (negative), Comfortable, Chills (negative) and Sweats (negative)
HEENT: Normocephalic and Anicteric
Cardiovascular: S1-S2 and Peripheral Edema (Trace lower extremity edema bilaterally)
Respiratory: Wheeze (negative), Crackles (Left base), Rhonchi (negative), Non-Labored Respirations and Other (Weak cough)
GI: Soft, Distended (Abdominal obesity), Non Tender and Normal Bowel Sounds
Neurology: Awake, Alert and Tremors (negative)
Skin: Warm, Dry, Cyanosis (negative) and Jaundice (negative)
Labs/Micro/Reports
Lab Data
05/16/25 05:09
05/16/25 05:09
Microbiology
05/13/25 15:56 Bronch Washing Respiratory Culture - Preliminary
Pseudomonas aeruginosa
Staphylococcus aureus
05/13/25 15:56 Bronch Washing Gram Stain - Preliminary
05/13/25 00:46 Blood/Venous Blood Culture - Preliminary
No Growth in 72 hours- Final report to follow
05/13/25 00:46 Blood/Venous Blood Culture - Preliminary
No Growth in 72 hours- Final report to follow
05/15/25 12:14 Urine Legionella Urinary Antigen - Final
Negative for Legionella pneumophila Serogroup 1 antigen.
A negative result does not rule out the possiblity of
Legionella infection due to other serogroups or species of
Legionella. Clinical correlation is recommended.
05/15/25 12:14 Urine Streptococcus pneumoniae Antigen (M - Final
Negative for Streptococcus pneumoniae antigen.
A negative result does not exclude infection with
Streptococcus pneumoniae. Clinical correlation is
recommended.
05/13/25 15:56 Nose Nasal Screen MRSA (PCR) - Final
MRSA not detected - performed by PCR methodology.
[2025-05-16] MEDS: DAILY VITAMIN/CENTRUM 15 ML TUBE (08:45)
[2025-05-16] MEDS: APRESOLINE TUBE (08:45)
[2025-05-16] MEDS: SEVELAMER CARBONATE 0.8 GM TUBE ×3 (08:45→23:01)
[2025-05-16] MEDS: MANNITOL 25% 12.5 GRAMS IV ×2 (08:45→10:13)
[2025-05-16] MEDS: LEXAPRO 20 MG TUBE (08:46)
[2025-05-16] MEDS: PREVACID 15 MG TUBE ×2 (08:46→19:59)
[2025-05-16] MEDS: LIDOCAINE 4% PATCH 1 PATCH TOPICAL (08:47)
[2025-05-16] MEDS: LAC HYDRIN, AM LACTIN LOTION 1 APPLIC TOPICAL (08:50)
[2025-05-16] MEDS: HYDROPHOR 1 APPLIC TOPICAL (08:51)
[2025-05-16] MEDS: ANTIFUNGAL CLEAR 1 APPLIC TOPICAL ×2 (08:53→20:01)
[2025-05-16] MEDS: MIRALAX TUBE (09:09)
[2025-05-16] MEDS: MIRALAX 17 GRAMS TUBE (09:09)
[2025-05-16] MEDS: RETACRIT 4000 UNITS IV (10:13)
[2025-05-16] MEDS: LOPRESSOR TUBE (10:22)
--- NOTE | 2025-05-16 10:37 | W.PN.NEPH.HD ---
Assessment
-
Total Time Spent with Patient (in minutes): Tolerating dialysis with ultrafiltration
Progress Note - Hemodialysis
-
Date of Service: May 16, 2025
Duration: 3 hours
Potassium Bath: 3
Calcium Bath: 2.5
Opti-Dialyzer: 160
Ultrafiltration: Other (2 to 3 kg as tolerated)
Blood Flow: 400
Dialysate Flow: 600
Heparin: None
EPO: None
--- NOTE | 2025-05-16 10:37 | W.PN.NEPH.PH ---
Today's Communication / Plan
-
Dialysis
Assessment/Plan
-
Impression:
Complicated pneumonia -on pneumonia with possible large parapneumonic effusion, non-septic (lung atelectasis)
Eric Wright�
ESRD -still makes urine, HD Friday
Insulin-dependent diabetes
PEG
CHF
Hyperphosphatemia
CAD
Hypothyroidism
Plan:
Antibiotics to be renally dosed for ESRD in setting of pneumonia
HD today tolerated ultrafiltration with mild dip in blood pressure
Epogen for hemoglobin less than 10
Continue dialysis Friday
Total Time Spent with Patient (in minutes): 33
-
-
Date of Service: May 16, 2025
CC / HPI / ROS
-
Chief Complaint:
ESRD
History of Present Illness:
ESRD Friday
Requiring BiPAP at night for lung atelectasis
Remains on nasal cannula oxygen
Review of Systems:
No reported shortness of breath or chest pain
Labs
-
Labs:
WBC 14.7 10^3/uL (4.8-10.8) H 05/16/25 05:09
RBC 3.20 10^6/uL (4.70-6.10) L 05/16/25 05:09
Hgb 9.2 g/dL (13.0-18.0) L 05/16/25 05:09
Hct 28.4 % (39.0-52.0) L 05/16/25 05:09
Plt Count 281 10^3/uL (130-400) 05/16/25 05:09
Sodium 135 mmol/L (135-145) 05/16/25 05:09
Potassium 3.5 mmol/L (3.5-5.1) 05/16/25 05:09
Chloride 104 mmol/L (98-107) 05/16/25 05:09
Carbon Dioxide 22 mmol/L (22-30) 05/16/25 05:09
BUN 55 mg/dl (9-20) H 05/16/25 05:09
Creatinine 2.9 mg/dL (0.7-1.3) H 05/16/25 05:09
eGFR 22.01 05/16/25 05:09
Glucose 254 mg/dl (70-99) H 05/16/25 05:09
Calcium 9.5 mg/dl (8.4-10.2) 05/16/25 05:09
Xmd-G-Ipfeljyegbg Pept 6220 pg/ml 05/12/25 23:09
Albumin 3.2 g/dl (3.5-5.0) L 05/16/25 05:09
Physical Exam
-
Vital Signs:
Vital Signs
Temp Pulse Resp BP Pulse Ox
98.2 F 68 21 127/50 91
05/16/25 07:19 05/16/25 10:15 05/16/25 10:15 05/16/25 10:15 05/16/25 10:00
[2025-05-16] MEDS: HEPARIN 3200 UNITS INTRACATH (11:40)
[2025-05-16 11:58] LABS: Glucose - Point of Care 169 mg/dl (70-99)
[2025-05-16] MEDS: MAXIPIME 1000 MG IV (12:14)
[2025-05-16] MEDS: STERILE WATER FOR INJECTION 10 ML IV (12:14)
[2025-05-16] MEDS: NOVOLOG FLEXPEN-LOW RESISTANCE 1 UNITS SC (12:15)
[2025-05-16] MEDS: NOVOLOG FLEXPEN 3 UNITS SC ×3 (12:15→23:02)
[2025-05-16] MEDS: APRESOLINE 25 MG TUBE ×3 (12:16→21:39)
--- NOTE | 2025-05-16 14:00 | CON.ID ---
Consultation
-
Date/Time Consultation Requested: May 16, 2025 1009
Date/Time Consultation Performed: May 16, 2025 1400
Requesting Provider: Dr. Marcus Hardin
Performing Provider: Dr. Libby Lee
Reason for Consultation: PNA
Chief Complaint / Past History
Chief Complaint
Cough and shortness of breath
History of Present Illness
History obtained from the patient and from his at bedside. He is a 74-year-old male with diabetes mellitus, COPD, Guillain-Wright� syndrome, chronic respiratory failure on chronic O2, dysphagia with PEG tube, end-stage renal disease on
hemodialysis via chest wall catheter who presented from [facility] on May 12 due to worsening cough and shortness of breath for about 1 week. Reported fever. Positive chills. In the ER white count 22, chest x-ray showed complete
whiteout of the left lung. CT of the chest showed mucous plugging with large left atelectasis, debris in the left main bronchus. May 13 he underwent bronchoscopy with airway clearance. The sputum culture grew Pseudomonas and Staphylococcus
aureus. Patient is currently on cefepime. He reports improvement of the shortness of breath. He has chronic intermittent cough. No diarrhea. Per , patient has been in and out of hospitals for the past 7 months with respiratory failure and
pneumonia.
Past History
Additional Past Medical History:
Diabetes mellitus
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
COPD
Chronic respiratory failure on home O2
End-stage renal disease on hemodialysis via HD catheter
Hypertension
Sick sinus syndrome s/p PPM
Dysphagia status post PEG
Ulcerative colitis
Bilateral TKR
Allergy History:
mesalamine Allergy (Unknown, Verified 05/13/25 01:03)
Unknown
Iodinated Contrast Media Allergy (Verified 05/13/25 01:03)
Unknown
Penicillins Allergy (Verified 05/13/25 01:03)
Unknown
Sulfa (Sulfonamide Antibiotics) Allergy (Verified 05/13/25 01:03)
Unknown
Medications Reviewed: Yes
Current Antibiotics:
Cefepime day 4
Social History
Tobacco: Non-Smoker
Alcohol: None
Drug: None
Personal:
Living: Care Home ([facility])
Family History
Family History: Not Pertinent
Review of Systems
Review of Systems
General: Negative Change in Appetite
HEENT: Negative Headache or Pharyngitis
Cardiovascular: Negative Chest Pain
Respiratory: Dyspnea
Gasteroenterology: Negative Nausea, Vomiting or Diarrhea
Genital / Urological: Negative Flank Pain
Endocrine: Weakness
Neurological: Negative Dizziness
All systems: All other systems were reviewed and were negative
Vital Signs
Temp Pulse Resp BP Pulse Ox
98.1 F 68 21 137/47 91
05/16/25 11:30 05/16/25 10:15 05/16/25 10:15 05/16/25 12:16 05/16/25 10:00
Physical Exam
Physical Exam
Constitutional: Comfortable and Chronically Ill
Head: Other (No frontal or max or sinus tenderness)
Eyes: No Conjunctival Hemorrhage and Sclera Anicteric
Cardiovascular: Regular Rate and S1/S2
Pulmonary: Rales (crackles left base)
Gastrointestinal: Soft, Non Tender, Non Distended and Normal Bowel Sounds
Extremities: Negative Edema
Musculoskeletal: Negative Joint Swelling or Joint Effusion
Neurological: AO x 3
Lab / Diagnostic Study Results
05/16/25 05:09
05/16/25 05:09
Abs Immat Gran (auto) 0.1 10^3/uL (0-0.05) H 05/16/25 05:09
Absolute Neuts (auto) 10.8 10^3/uL (1.4-6.5) H 05/16/25 05:09
Absolute Lymphs (auto) 1.1 10^3/uL (1.2-3.4) L 05/16/25 05:09
Absolute Monos (auto) 1.7 10^3/uL (0.1-0.6) H 05/16/25 05:09
Absolute Basos (auto) 0.1 10^3/uL (0-0.2) 05/16/25 05:09
Immature Gran % 1.0 % (0-0.5) H 05/16/25 05:09
Neutrophils % 73.3 % (42.2-75.2) 05/16/25 05:09
Lymphocytes % 7.8 % (20.5-51.1) L 05/16/25 05:09
Monocytes % 11.5 % (1.7-9.3) H 05/16/25 05:09
Eosinophils % 5.5 % (0-6) 05/16/25 05:09
Basophils % 0.9 % (0-2) 05/16/25 05:09
PT Cancelled 05/13/25 08:39
INR Cancelled 05/13/25 08:39
Lactic Acid Cancelled 05/13/25 04:45
Microbiology Results
Micro:
05/13/25 15:56 Respiratory Culture - Preliminary
Bronch Washing Pseudomonas aeruginosa
Staphylococcus aureus
Gram Stain - Preliminary
05/13/25 00:46 Blood Culture - Preliminary
Blood/Venous No Growth in 72 hours- Final report to follow
05/13/25 00:46 Blood Culture - Preliminary
Blood/Venous No Growth in 72 hours- Final report to follow
05/15/25 12:14 Legionella Urinary Antigen - Final
Urine Negative for Legionella pneumophila Serogroup 1 antigen.
A negative result does not rule out the possiblity of
Legionella infection due to other serogroups or species of
Legionella. Clinical correlation is recommended.
Streptococcus pneumoniae Antigen (M - Final
Negative for Streptococcus pneumoniae antigen.
A negative result does not exclude infection with
Streptococcus pneumoniae. Clinical correlation is
recommended.
05/13/25 15:56 Nasal Screen MRSA (PCR) - Final
Nose MRSA not detected - performed by PCR methodology.
05/12/25 22:38 Influenza Types A & B (LAURA) - Final
Nasal Swab Negative for Influenza A & B, NAAT
Negative results must be combined with clinical observations
and patient history.
Nucleic Acid Amplification test (NAAT)performed on the
[employer] platform.
05/15/25 CXR: Resolving left lung atelectasis.
05/13/[address]: Frothy secretions are seen within the left mainstem bronchus, resulting in total bronchial obstruction and atelectasis of the entire left lung. Consider bronchoscopy to exclude obstructing endobronchial mass. Moderate left pleural
effusion without CT evidence of significant loculation. No large pleural-based mass is appreciated, although evaluation is limited without intravenous contrast.
05/13/25 CXR: Complete whiteout of the left lung, with volume loss of the left hemithorax, suggestive of left lung atelectasis.
Assessment / Plan
# LLE PNA/aspiration
# Mucous plugging left lung collapse s/p bronch (05/13)
# Leukocytosis - improving
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
# Dysphagia on tube feeds
# Chronic respiratory failure on O2
# PCN/sulfa allergy
- Bronch cx: Pseudomonas, Staph aureus
- Continue cefepime (d4) for now.
- When final cx data available, will adjust abx to be given with HD.
--- NOTE | 2025-05-16 15:08 | W.PN.HOSP.TC ---
Today's Communication/Plan
-
ID evaluation
Continue to biotics
Wean off oxygen as possible
Continue pulmonary toileting measures
Assessment / Plan
Assessment / Plan
Sepsis
Pseudomonas/Staphylococcus pneumonia
Left lung collapse from mucous plugging
-CT chest with frothy secretions within the left mainstem bronchus, resulting in total bronchial obstruction and atelectasis of entire left lung.
-Status post [facility] 05/13. culture growing Pseudomonas/Staph aureus does not appear there was a whole lot of mucus. Suspect secondary to atelectasis possible from Guillian Austell. discussed with Pelota Maker,
-NIF testing. NIF -25 to -30; very poor expectoration of secretions. Will need assistance with cough
-Blood cultures NGTD
-Hypertonic saline, albuterol inh therapy
- Currently on cefepime therapy only. ID consulted for further help with antibiotic
Acute on chronic hypoxic respiratory failure
- appears on continuous 2 L oxygen at [place] point. Wean oxygen as tolerated
- Supplemental oxygen
- BiPAP at bedtime
ESRD -still makes urine, HD Friday
- Nephrology following for HD
- Fluid restricted diet
- Renal dose medication
- continue sevelamer
Insulin-dependent diabetes
- Lantus 20 every afternoon
- Started on NovoLog 3 units every 6 hours
- Sliding scale every 6 hours
History of Guillian Austell
s/p PEG tube
Tube Feeding
- Patient on Nepro 7 5 mL per x 18 hours, starting at 3 PM to 9 AM at the [facility]
- on TF
CHF, unknown EF
suspect acute on chronic exacerbation
- HD as above
- Continue Bumex daily
- Daily weights
- Continue hydralazine 25 4 times daily with holding parameter
Hypothyroidism
Continue with levothyroxine
Insulin-dependent diabetes mellitus
Continue with insulin
Accu-Cheks, sliding scale
History of COPD
PE/DVT history
Chronic dysphagia
Macular degeneration
Hypertension
DVT PPX - heparin sq
Code status - Full Code
Anticipated Discharge: > 48 hours
Subjective/Interval History
-
Date of Service: May 16, 2025
Patient feeling weak/tired
Denies feeling short of breath
On oxygen through nasal cannula
no reported acute issues
Objective Data
-
Labs:
Laboratory Results
05/16/25
05:09
WBC 14.7 H
Hgb 9.2 L
Hct 28.4 L
Plt Count 281
Sodium 135
Potassium 3.5
Chloride 104
Carbon Dioxide 22
BUN 55 H
Creatinine 2.9 H
Glucose 254 H
Calcium 9.5
Total Bilirubin 0.5
AST 17
ALT 24
Alkaline Phosphatase 120
Vital Signs:
Vital Signs
Temp Pulse Resp BP Pulse Ox
98.1 F 68 18 137/47 94
05/16/25 11:30 05/16/25 10:15 05/16/25 12:10 05/16/25 12:16 05/16/25 12:10
I&O
05/15/25 05/16/25 05/17/25
06:59 06:59 06:59
Intake Total 145 / 145 900 / 900
Output Total 0 / 0 285 / 285
Balance 145 / 145 615 / 615
Review of Systems
-
Respiratory: Reports No Symptoms
Cardiac: Reports No Symptoms
Abdomen/GI: Reports No Symptoms
Physical Exam
-
General: No Apparent Distress and Comfortable
HEENT: Negative Oxygen
Respiratory: Clear to Auscultation
Cardiac: Regular Rhythm and S1/S2; Negative Murmur or Rub
GI: Soft
Musculoskeletal: No Edema
Neuro: Awake, Alert, Oriented, No Motor Deficits and Nonfocal/Grossly Intact
Psych: Calm
--- NOTE | 2025-05-16 16:08 | CM ---
Discharge POC: Therapy recommendation for SNF. Patient came from [facility]. This CM spoke with patient and . Patient says he wants to go home. Does not want a SNF. CM offered to supply list of different SNF's. Patient not
interested at this time. Agreed to wait for additional therapy evals and will discuss later.
[2025-05-16] MEDS: LIPITOR 40 MG TUBE (17:13)
[2025-05-16] MEDS: LANTUS 0.2 UNITS SC (17:14)
[2025-05-16 17:20] LABS: Glucose - Point of Care 241 mg/dl (70-99)
[2025-05-16] MEDS: LOPRESSOR 25 MG TUBE (19:58)
[2025-05-16] MEDS: MYSOLINE 50 MG TUBE (21:39)
[2025-05-16 21:44] LABS: Glucose - Point of Care 242 mg/dl (70-99)
[2025-05-17] VITALS (9 sets, daily range): BP systolic 121–156; BP diastolic 46–96; PULSE 2; O2SAT 98
--- NOTE | 2025-05-17 02:24 | DOWNTIME ---
There was a [employer] Downtime on 05/17/2025 from 0100 to 05/17/2025 at 0220. Downtime documentation of patient's care, including medication administrations, has been reconciled in the electronic record per guidelines. Refer to the
patient's paper chart under the miscellaneous tab to see printed paper medication records and downtime forms.
[2025-05-17 05:55] LABS: Glucose - Point of Care 177 mg/dl (70-99)
[2025-05-17] MEDS: SYNTHROID 150 MCG TUBE (05:58)
[2025-05-17] MEDS: NOVOLOG FLEXPEN 3 UNITS SC ×2 (05:59→14:02)
[2025-05-17] MEDS: NOVOLOG FLEXPEN-LOW RESISTANCE 1 UNITS SC (05:59)
[2025-05-17] MEDS: VENTOLIN NEBULES 2.5 MG INH ×2 (07:54→19:19)
[2025-05-17] MEDS: SODIUM CHLORIDE 3% FOR INHALATION 1 VIAL INH ×2 (07:54→19:19)
[2025-05-17 08:00] LABS: Hematocrit 31.4 % (39.0-52.0); Hemoglobin 9.9 g/dL (13.0-18.0); Mean Corp Hgb Conc. 31.5 g/dL (33.0-37.0); Mean Corpuscular Volume 91.3 fL (80.0-94.0); Platelet Count 292 10^3/uL (130-400); Red Cell Dist. Width 15.9 % (11.5-14.5)
[2025-05-17 08:24] LABS: Blood Urea Nitrogen 36 mg/dl (9-20); Calcium 9.4 mg/dl (8.4-10.2); Carbon Dioxide 29 mmol/L (22-30); Chloride 101 mmol/L (98-107); Estimated Creatinine Clearance 37 ml/min; Glucose 236 mg/dl (70-99); Potassium 3.8 mmol/L (3.5-5.1); Sodium 137 mmol/L (135-145); eGFR 30.66
[2025-05-17] MEDS: APRESOLINE 25 MG TUBE ×4 (09:28→20:59)
[2025-05-17] MEDS: ANTIFUNGAL CLEAR 1 APPLIC TOPICAL ×2 (09:28→21:00)
[2025-05-17] MEDS: LOPRESSOR 25 MG TUBE ×2 (09:29→20:59)
[2025-05-17] MEDS: LEXAPRO 20 MG TUBE (09:29)
[2025-05-17] MEDS: DAILY VITAMIN/CENTRUM 15 ML TUBE (09:30)
[2025-05-17] MEDS: MIRALAX 17 GRAMS TUBE (09:30)
[2025-05-17] MEDS: STERILE WATER FOR INJECTION 10 ML IV (09:30)
[2025-05-17] MEDS: PREVACID 15 MG TUBE ×2 (09:30→20:59)
[2025-05-17] MEDS: MAXIPIME 1000 MG IV (09:30)
[2025-05-17] MEDS: SEVELAMER CARBONATE 0.8 GM TUBE ×2 (09:31→17:11)
[2025-05-17] MEDS: HEPARIN 5000 UNITS SC ×2 (09:31→17:10)
[2025-05-17] MEDS: LAC HYDRIN, AM LACTIN LOTION 1 APPLIC TOPICAL (09:35)
[2025-05-17] MEDS: HYDROPHOR 1 APPLIC TOPICAL (09:35)
[2025-05-17] MEDS: BUMEX 2 MG TUBE (09:39)
--- NOTE | 2025-05-17 10:00 | W.PN.PUL.V3 ---
Today's Communication / Plan
-
Mucus clearing devices
Wean oxygen
Noninvasive ventilation as needed
Follow radiographically
Bronchoscopy if needed
Assess if significant pleural fluid for thoracentesis
Assessment
-
Patient is a 74-year-old male with previous history of Guillain-Wright� syndrome, COPD, chronic respiratory failure on home oxygen, diabetes, end-stage renal disease on HD MWF, PE/DVT, chronic dysphagia status post PEG presenting to ER from [facility] with fevers, cough and shortness of breath. He has been having difficulty with expectorating mucus. He is quite immobile from his neuromuscular disease and can use his upper extremities to a limited degree. Chest x-ray obtained indicating
left-sided whiteout with suspicion for mucous plugging. He is currently 97% on room air.
We are consulted for evaluation.
Conditions present prior to admission
Guillain-Wright� syndrome
Chronic respiratory failure on home oxygen
History of COPD
ESRD on HD MWF
PE DVT history
Diabetes
Chronic dysphagia status post PEG
Obesity
Hypertension
GERD
Macular degeneration
Ulcerative colitis
Sick sinus syndrome
Assessment and plan:
#1. Acute on chronic left-sided bronchial obstruction likely from mucous plugging in the setting of left lung pneumonia/aspiration with pleural effusion
-S/p bronchoscopy by Dr. Eng with airway clearance on 05/13/25 with significant improvement
-X-ray 05/14 showed worsening atelectasis again, responded well to BiPAP as well as airway clearance measures with improving chest x-ray 05/15
-Patient has very poor cough and also concomitant suspected neuromuscular weakness with poor clearance of airway
-Attempted to use Cofflator -> pt did not tolerate
-Pulmonary toilet is pickett � start support bed with nebulized 3% + nebulized albuterol
-Serial CXR � may need repeat bronchoscopy if left-sided atelectasis worsens
-Check left sided chest ultrasound-pending to assess for size of + pleural effusion � if at least moderately sized then would consult IR for thoracentesis
-MRSA screen negative discontinue vancomycin, discontinue Flagyl. Continue cefepime for now and follow-up on respiratory cultures (grew Pseudomonas aeruginosa and rare Staph aureus)
- ID consulted - defer ABx to them
- Trend WBC and monitor temperature curve
#2. 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
-NIF testing -25 to -30, very weak cough with poor expectoration of secretions
-Continue daily NIF
-VBG reviewed, compensated hypercapnia noted again suggestive of underlying nocturnal hypoventilation
-Initiated BiPAP 12/, nightly, during napping and as needed. Patient will need long-term PAP therapy postdischarge
-Continue flutter valve, chest physical therapy
-Continue hypertonic saline to 3 times daily nebulizer along with albuterol 3 times daily.
-Patient is profoundly deconditioned and has been in various health facilities over the last 7 months, currently essentially bedbound; PT/OT recommended
Goal BG 140�180
DVT prophylaxis
Other medical diagnoses:
- End-stage renal disease, on hemodialysis, nephrology service on case
- Insulin-dependent diabetes mellitus, on Lantus and scheduled short-acting along with sliding scale insulin
- Chronic dysphagia, currently on tube feeding via PEG tube
- Hypothyroidism
- Hypertension
- Macular degeneration
- History of VTE, not currently on anticoagulation
Diagnostic Data
Chest X-Ray: 05/12/25- . Complete whiteout of the left lung, with volume loss of the left hemithorax, suggestive of left lung atelectasis. Left pleural effusion may also be present.
2. Right lung is clear.
CT Scan: CHEST 05/12/25- . Frothy secretions are seen within the left mainstem bronchus, resulting in total bronchial obstruction and atelectasis of the entire left lung. Consider bronchoscopy to exclude obstructing endobronchial mass.
2. Moderate left pleural effusion without CT evidence of significant loculation. No large pleural-based mass is appreciated, although evaluation is limited without intravenous contrast.
3. Severe coronary arterial calcification. Please correlate with symptoms of and risk factors for coronary artery disease, with further workup as clinically appropriate.
Total time spent today was 56 minutes for this encounter. Time includes reviewing laboratory test/imaging results, reviewing pertinent medical records, obtaining and reviewing medical history, performing an appropriate exam, ordering medications,
tests and procedures. Time also includes documentation of this encounter, coordinating patient care and communicating with other healthcare professionals. Total time does not include separately billed tests performed on this date of service.
Subjective Data
-
Date of Service:
Date of Service: May 17, 2025
Chief Complaint: Pulmonary Follow Up and Dyspnea Follow Up
Subjective:
Feels better, no complaint of productive cough, chest congestion, chest pain, tolerating noninvasive ventilation
Review of Systems
General: Other (Per HPI)
Objective Data
Data Reviewed
Vital Signs / I&O:
Vital Signs
Temp Pulse Resp BP Pulse Ox
98.6 F 79 18 121/54 95
05/17/25 08:21 05/17/25 08:21 05/17/25 08:21 05/17/25 08:21 05/17/25 08:21
Intake and Output
05/16/25 05/17/25 05/18/25
06:59 06:59 06:59
Intake Total 900 / 900 910 / 910
Output Total 285 / 285
Balance 615 / 615 910 / 910
SaO2: 95
Nasal Cannula flow liters per minute: 1
Physical Exam
General: Respiratory Distress (negative), Comfortable, Chills (negative) and Sweats (negative)
HEENT: Normocephalic and Anicteric
Cardiovascular: Regular Rhythm, Murmur and Peripheral Edema (Trace lower extremity edema bilaterally)
Respiratory: Wheeze (negative), Crackles (Left base), Rhonchi (negative), Non-Labored Respirations and Other (Weak cough)
GI: Soft, Distended (Abdominal obesity), Non Tender and Normal Bowel Sounds
Neurology: Awake, Alert and Tremors (negative)
Skin: Warm, Good Color, Cyanosis (negative) and Jaundice (negative)
Labs/Micro/Reports
Lab Data
05/17/25 07:15
05/17/25 07:15
Microbiology
05/13/25 15:56 Bronch Washing Respiratory Culture - Final
Pseudomonas aeruginosa
S aureus-Methicillin Sensitive
05/13/25 15:56 Bronch Washing Gram Stain - Final
05/13/25 00:46 Blood/Venous Blood Culture - Preliminary
No Growth in 4 days- Final report to follow
05/13/25 00:46 Blood/Venous Blood Culture - Preliminary
No Growth in 4 days- Final report to follow
05/15/25 12:14 Urine Legionella Urinary Antigen - Final
Negative for Legionella pneumophila Serogroup 1 antigen.
A negative result does not rule out the possiblity of
Legionella infection due to other serogroups or species of
Legionella. Clinical correlation is recommended.
05/15/25 12:14 Urine Streptococcus pneumoniae Antigen (M - Final
Negative for Streptococcus pneumoniae antigen.
A negative result does not exclude infection with
Streptococcus pneumoniae. Clinical correlation is
recommended.
--- NOTE | 2025-05-17 10:38 | W.PN.ID1 ---
Date of Service
Date of Service: May 17, 2025
Today's Communication
- Continue cefepime at 2g IV qMWF with dialysis, last dose 05/23/25.
- Infusion sheet handed to top case assembler.
Assessment / Plan
# LLE PNA/aspiration
# Mucous plugging left lung collapse s/p bronch (05/13)
# Leukocytosis - stable
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
# Dysphagia on tube feeds
# Chronic respiratory failure on O2
# PCN/sulfa allergy
- Bronch cx: Pseudomonas, Staph aureus (MSSA)
- Continue cefepime at 2g IV qMWF with dialysis, last dose 05/23/25.
- Infusion sheet handed to top case assembler.
Chief Complaint
-: Pneumonia
Subjective / Review of Systems
Doing well.
Vital Signs / Physical Exam
Vital Signs
Vital Signs
Temp Pulse Resp BP Pulse Ox
98.6 F 79 18 121/54 95
05/17/25 08:21 05/17/25 08:21 05/17/25 08:21 05/17/25 08:21 05/17/25 10:00
Physical Exam
Constitutional: No Acute Distress and Comfortable
Cardiovascular: Regular Rate
Pulmonary: Rales
Gastrointestinal: Soft, Non Tender, Non Distended and Normal Bowel Sounds
Neurological: AO x 3
Objective Data
Lab Data
Lab Results
05/17/25 07:15
05/17/25 07:15
PT Cancelled 05/13/25 08:39
INR Cancelled 05/13/25 08:39
Estimated Creat Clear 37 ml/min 05/17/25 07:15
Lactic Acid Cancelled 05/13/25 04:45
Total Bilirubin 0.5 mg/dl (0.2-1.3) 05/16/25 05:09
AST 17 U/L (17-59) 05/16/25 05:09
ALT 24 U/L (0-50) 05/16/25 05:09
Alkaline Phosphatase 120 U/L (38-126) 05/16/25 05:09
Most recent labs reviewed.
Micro Results:
05/13/25 15:56 Respiratory Culture - Final
Bronch Washing Pseudomonas aeruginosa
S aureus-Methicillin Sensitive
Gram Stain - Final
05/13/25 00:46 Blood Culture - Preliminary
Blood/Venous No Growth in 4 days- Final report to follow
05/13/25 00:46 Blood Culture - Preliminary
Blood/Venous No Growth in 4 days- Final report to follow
05/15/25 12:14 Legionella Urinary Antigen - Final
Urine Negative for Legionella pneumophila Serogroup 1 antigen.
A negative result does not rule out the possiblity of
Legionella infection due to other serogroups or species of
Legionella. Clinical correlation is recommended.
Streptococcus pneumoniae Antigen (M - Final
Negative for Streptococcus pneumoniae antigen.
A negative result does not exclude infection with
Streptococcus pneumoniae. Clinical correlation is
recommended.
05/13/25 15:56 Nasal Screen MRSA (PCR) - Final
Nose MRSA not detected - performed by PCR methodology.
05/12/25 22:38 Influenza Types A & B (LAURA) - Final
Nasal Swab Negative for Influenza A & B, NAAT
Negative results must be combined with clinical observations
and patient history.
Nucleic Acid Amplification test (NAAT)performed on the
[employer] platform.
05/15/25 CXR: Resolving left lung atelectasis.
05/13/[address]: Frothy secretions are seen within the left mainstem bronchus, resulting in total bronchial obstruction and atelectasis of the entire left lung. Consider bronchoscopy to exclude obstructing endobronchial mass. Moderate left pleural
effusion without CT evidence of significant loculation. No large pleural-based mass is appreciated, although evaluation is limited without intravenous contrast.
05/13/25 CXR: Complete whiteout of the left lung, with volume loss of the left hemithorax, suggestive of left lung atelectasis.
Care Review
Plan reviewed with: Physician (Dr. bradley)
[2025-05-17 11:55] LABS: Glucose - Point of Care 266 mg/dl (70-99)
[2025-05-17] MEDS: SODIUM CHLORIDE 3% FOR INHALATION INH (12:57)
[2025-05-17] MEDS: VENTOLIN NEBULES INH (12:58)
--- NOTE | 2025-05-17 13:20 | W.PN.NEPH.PH ---
Today's Communication / Plan
-
No acute need for dialysis today
Assessment/Plan
-
Impression:
Complicated pneumonia -on pneumonia with possible large parapneumonic effusion, non-septic (lung atelectasis)
Eric Wright�
ESRD -still makes urine, HD Friday
Insulin-dependent diabetes
PEG
CHF
Hyperphosphatemia
CAD
Hypothyroidism
Plan:
Antibiotics to be renally dosed for ESRD in setting of pneumonia/cefepime 2 g postdialysis until 05/23
HD today tolerated ultrafiltration with mild dip in blood pressure
Epogen for hemoglobin less than 10
Continue dialysis Friday
Possible thoracentesis pending ultrasound
-
-
Date of Service: May 17, 2025
CC / HPI / ROS
-
Chief Complaint:
ESRD
History of Present Illness:
ESRD Friday
Requiring BiPAP at night for lung atelectasis
Remains on nasal cannula oxygen
Review of Systems:
No reported shortness of breath or chest pain
Labs
-
Labs:
WBC 14.6 10^3/uL (4.8-10.8) H 05/17/25 07:15
RBC 3.44 10^6/uL (4.70-6.10) L 05/17/25 07:15
Hgb 9.9 g/dL (13.0-18.0) L 05/17/25 07:15
Hct 31.4 % (39.0-52.0) L 05/17/25 07:15
Plt Count 292 10^3/uL (130-400) 05/17/25 07:15
Sodium 137 mmol/L (135-145) 05/17/25 07:15
Potassium 3.8 mmol/L (3.5-5.1) 05/17/25 07:15
Chloride 101 mmol/L (98-107) 05/17/25 07:15
Carbon Dioxide 29 mmol/L (22-30) 05/17/25 07:15
BUN 36 mg/dl (9-20) H 05/17/25 07:15
Creatinine 2.2 mg/dL (0.7-1.3) H 05/17/25 07:15
eGFR 30.66 05/17/25 07:15
Glucose 236 mg/dl (70-99) H 05/17/25 07:15
Calcium 9.4 mg/dl (8.4-10.2) 05/17/25 07:15
Zrs-A-Jkifyassaqs Pept 6220 pg/ml 05/12/25 23:09
Albumin 3.2 g/dl (3.5-5.0) L 05/16/25 05:09
Physical Exam
-
Vital Signs:
Vital Signs
Temp Pulse Resp BP Pulse Ox
98.7 F 67 16 141/52 95
05/17/25 11:28 05/17/25 11:28 05/17/25 11:28 05/17/25 11:28 05/17/25 11:28
Respiratory:: Bilateral: Coarse and Bilateral: Rales
Lung Excursion:: Normal
Abdomen:: Soft
Bowel Sounds:: Normal
Extremity Edema:: +1: Bilateral:
[2025-05-17] MEDS: NOVOLOG FLEXPEN-LOW RESISTANCE 6 UNITS SC (14:01)
--- NOTE | 2025-05-17 14:04 | PN.CDI ---
CDI
- -
CDI:
Physician Documentation Request
Admit Date: 05/13/25 03:39
Dear Doctor Wilfred,
Patient admitted with sepsis.
05/16 Nursing skin assessment, 'Stage 2 sacral pressure injury, POA.'
Physician documentation of the type and location of wounds is required for compliant documentation. Based on the above clinical findings and your assessment, please provide the following in your progress note:
Type (etiology) of ulcer/wound:
- Pressure (decubitus) ulcer
- Other
- Unable to determine
For a pressure ulcer, please also include the stage* of the ulcer:
- Stage 1 - Skin intact, non-blanchable redness
- Stage 2 - Partial thickness loss of dermis, includes intact or open blister
- Stage 3 - Full thickness tissue not including bone, tendon or muscle
- Stage 4 - Full thickness tissue loss, including exposed bone, tendon or muscle
- Unstageable - Full thickness loss in which the base of the ulcer is covered by slough (yellow, sevilla, karimi, green or brown) and/or eschar (sevilla, brown or black) in the wound bed.
- Unable to determine
Use of terms such as suspected, likely, concern for, or probable (associated with a specific diagnosis that is being evaluated, monitored, or treated as if it exists) are acceptable and can be coded in the inpatient setting, when documented at the
time of discharge.
Thank you,
Jossie COELHO,RN,CCDS
CDI Specialist
Available via [employer] text
Please use your independent medical judgment in providing your response.
*Source: National Pressure Ulcer Advisory Panel (NPUAP)
--- NOTE | 2025-05-17 15:46 | W.PN.HOSP.TC ---
Today's Communication/Plan
-
Chest us showing small effusion
ID recommendation reviewed
possible d/c in 24 hrs
Assessment / Plan
Assessment / Plan
Sepsis
Pseudomonas/MSSA pneumonia
Left lung collapse from mucous plugging
-CT chest with frothy secretions within the left mainstem bronchus, resulting in total bronchial obstruction and atelectasis of entire left lung.
-Status post [facility] 05/13. culture growing Pseudomonas/Staph aureus does not appear there was a whole lot of mucus. Suspect secondary to atelectasis possible from Guillain [place]. discussed with Rehabilitation Coordinator,
-NIF testing. NIF -25 to -30; very poor expectoration of secretions. Will need assistance with cough
-Blood cultures NGTD
-Hypertonic saline, albuterol inh therapy
-ID recommended for patient to be maintained on IV cefepime 2g MWF 05/23
-Chest US showing small effusion only
Acute on chronic hypoxic respiratory failure
- appears on continuous 2 L oxygen at [place]. Wean oxygen as tolerated
- Supplemental oxygen
- BiPAP at bedtime
ESRD -still makes urine, HD Friday
- Nephrology following for HD
- Fluid restricted diet
- Renal dose medication
- continue sevelamer
Insulin-dependent diabetes
- Increase dose of Lantus and novolog premeal
History of Guillian [place]
s/p PEG tube
Tube Feeding
- Patient on Nepro 7 5 mL per x 18 hours, starting at 3 PM to 9 AM at the [facility]
- on TF
CHF, unknown EF
suspect acute on chronic exacerbation
- HD as above
- Continue Bumex daily
- Continue hydralazine 25 4 times daily with holding parameter
Hypothyroidism
- Continue with levothyroxine
History of COPD
PE/DVT history
Chronic dysphagia
Macular degeneration
Hypertension
DVT PPX - heparin sq
Code status - Full Code
Anticipated Discharge: Within 24 hours
Subjective/Interval History
-
Date of Service: May 17, 2025
continues to have poor cough reflex
afebrile
on o2 through [place]
Objective Data
-
Labs:
Laboratory Results
05/17/25
07:15
WBC 14.6 H
Hgb 9.9 L
Hct 31.4 L
Plt Count 292
Sodium 137
Potassium 3.8
Chloride 101
Carbon Dioxide 29
BUN 36 H
Creatinine 2.2 H
Glucose 236 H
Calcium 9.4
Vital Signs:
Vital Signs
Temp Pulse Resp BP Pulse Ox
98.7 F 67 16 141/52 95
05/17/25 11:28 05/17/25 11:28 05/17/25 11:28 05/17/25 11:28 05/17/25 11:28
I&O
05/16/25 05/17/25 05/18/25
06:59 06:59 06:59
Intake Total 900 / 900 910 / 910
Output Total 285 / 285 100 / 100
Balance 615 / 615 910 / 910 -100 / -100
Review of Systems
-
Respiratory: Reports No Symptoms
Cardiac: Reports No Symptoms
Abdomen/GI: Reports No Symptoms
Physical Exam
-
General: No Apparent Distress and Comfortable
HEENT: Negative Oxygen
Respiratory: Clear to Auscultation
Cardiac: Regular Rhythm and S1/S2; Negative Murmur or Rub
GI: Soft
Musculoskeletal: No Edema
Neuro: Awake, Alert, Oriented, No Motor Deficits and Nonfocal/Grossly Intact
Psych: Calm
--- NOTE | 2025-05-17 15:56 | CM ---
CM reviewed chart, script received for IV antibiotics with HD. Patient seen bedside, reports he really would like to return home. CM discussed PT evaluations, patient max assist of 2. Patient reports he does not have an outpatient dialysis center,
resides in [place], has been in and out of the Hospital/rehabs. Patient requesting CM call - CM spoke with , Ashlee. Ashlee unsure of how patient would return home as she works, would need to hire private caregivers, unsure how
patient would get to/from dialysis as patient is assist of 2. reports patient did make some progress at [facility], undecided on if she wants patient to return at this time.
Plan; SNF recommended, patient on dialysis, IV antibiotics.
[2025-05-17 16:59] LABS: Glucose - Point of Care 215 mg/dl (70-99)
[2025-05-17] MEDS: LANTUS 0.25 UNITS SC (17:12)
[2025-05-17] MEDS: LIPITOR 40 MG TUBE (17:13)
[2025-05-17] MEDS: NOVOLOG FLEXPEN 5 UNITS SC (17:14)
[2025-05-17] MEDS: NOVOLOG FLEXPEN-LOW RESISTANCE 2 UNITS SC (17:14)
[2025-05-17] MEDS: MYSOLINE 50 MG TUBE (20:59)
[2025-05-18] VITALS (7 sets, daily range): BP systolic 128–141; BP diastolic 41–74; PULSE 2–67; BMI 31.4
[2025-05-18 00:07] LABS: Glucose - Point of Care 194 mg/dl (70-99)
[2025-05-18] MEDS: NOVOLOG FLEXPEN 5 UNITS SC ×4 (00:54→18:08)
[2025-05-18] MEDS: HEPARIN 5000 UNITS SC ×3 (00:55→23:22)
[2025-05-18] MEDS: NOVOLOG FLEXPEN-LOW RESISTANCE 1 UNITS SC ×2 (00:55→12:36)
[2025-05-18] MEDS: SEVELAMER CARBONATE 0.8 GM TUBE ×4 (01:00→23:22)
[2025-05-18 06:02] LABS: Glucose - Point of Care 227 mg/dl (70-99)
[2025-05-18] MEDS: SYNTHROID 150 MCG TUBE (06:38)
[2025-05-18] MEDS: NOVOLOG FLEXPEN-LOW RESISTANCE 2 UNITS SC ×2 (06:38→18:07)
[2025-05-18] MEDS: VENTOLIN NEBULES 2.5 MG INH ×3 (07:53→19:13)
[2025-05-18] MEDS: SODIUM CHLORIDE 3% FOR INHALATION 1 VIAL INH ×3 (07:53→19:13)
[2025-05-18 08:13] LABS: Hematocrit 33.1 % (39.0-52.0); Hemoglobin 10.3 g/dL (13.0-18.0); Mean Corp Hgb Conc. 31.1 g/dL (33.0-37.0); Mean Corpuscular Volume 91.4 fL (80.0-94.0); Platelet Count 298 10^3/uL (130-400); Red Cell Dist. Width 15.9 % (11.5-14.5)
[2025-05-18 08:29] LABS: Blood Urea Nitrogen 53 mg/dl (9-20); Calcium 9.9 mg/dl (8.4-10.2); Carbon Dioxide 28 mmol/L (22-30); Chloride 101 mmol/L (98-107); Estimated Creatinine Clearance 30 ml/min; Glucose 258 mg/dl (70-99); Potassium 3.8 mmol/L (3.5-5.1); Sodium 136 mmol/L (135-145); eGFR 23.98
[2025-05-18] MEDS: FLEXBUMIN 25% FOR HEMODIALYSIS 12.5 GRAMS IV ×2 (08:35→10:35)
[2025-05-18] MEDS: MANNITOL 25% 12.5 GRAMS IV ×2 (09:25→10:48)
[2025-05-18] MEDS: RETACRIT 10000 UNITS IV (09:50)
--- NOTE | 2025-05-18 09:58 | W.PN.PUL.V3 ---
Today's Communication / Plan
-
Hemodialysis
Mucus clearing maneuvers
Continue nebulizers
Stable for potential discharge from a pulmonary perspective-high risk for repetitive readmissions due to deconditioning, poor performance status, high risk for mucous plugging due to difficulties mobilizing secretions
Assessment
-
Patient is a 74-year-old male with previous history of Guillain-Wright� syndrome, COPD, chronic respiratory failure on home oxygen, diabetes, end-stage renal disease on HD MWF, PE/DVT, chronic dysphagia status post PEG presenting to ER from [facility] with fevers, cough and shortness of breath. He has been having difficulty with expectorating mucus. He is quite immobile from his neuromuscular disease and can use his upper extremities to a limited degree. Chest x-ray obtained indicating
left-sided whiteout with suspicion for mucous plugging. He is currently 97% on room air.
We are consulted for evaluation.
Conditions present prior to admission
Guillain-Wright� syndrome
Chronic respiratory failure on home oxygen
History of COPD
ESRD on HD MWF
PE DVT history
Diabetes
Chronic dysphagia status post PEG
Obesity
Hypertension
GERD
Macular degeneration
Ulcerative colitis
Sick sinus syndrome
Assessment and plan:
#1. Acute on chronic left-sided bronchial obstruction likely from mucous plugging in the setting of left lung pneumonia/aspiration with pleural effusion
-S/p bronchoscopy by Dr. Eng with airway clearance on 05/13/25 with significant improvement
-X-ray 05/14 showed worsening atelectasis again, responded well to BiPAP as well as airway clearance measures with improving chest x-ray 05/15
-Patient has very poor cough and also concomitant suspected neuromuscular weakness with poor clearance of airway
-Attempted to use Cofflator -> pt did not tolerate
-Pulmonary toilet is pickett � start support bed with nebulized 3% + nebulized albuterol
-Serial CXR if needed would consider repeat bronchoscopy if left-sided atelectasis worsens
-Check left sided chest ultrasound-pending to assess for size of + pleural effusion � if at least moderately sized then would consult IR for thoracentesis
-MRSA screen negative discontinue vancomycin, discontinue Flagyl. Continue cefepime for now and follow-up on respiratory cultures (grew Pseudomonas aeruginosa and rare Staph aureus)
- ID consulted - defer ABx to them-currently on cefepime
- Trend WBC and monitor temperature curve
#2. 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
-NIF testing -25 to -30, very weak cough with poor expectoration of secretions
-Continue daily NIF
-VBG reviewed, compensated hypercapnia noted again suggestive of underlying nocturnal hypoventilation
-Initiated BiPAP 09/30, nightly, during napping and as needed. Patient will need long-term PAP therapy postdischarge
-Continue flutter valve-encouraged, chest physical therapy
-Continue hypertonic saline to 3 times daily nebulizer along with albuterol 3 times daily.
-Patient is profoundly deconditioned and has been in various health facilities over the last 7 months, currently essentially bedbound; PT/OT recommended
Goal BG 140�180
DVT prophylaxis-on heparin
Reviewed with primary team-stable for potential discharge from a pulmonary perspective
Other medical diagnoses:
- End-stage renal disease, on hemodialysis, nephrology service on case
- Insulin-dependent diabetes mellitus, on Lantus and scheduled short-acting along with sliding scale insulin
- Chronic dysphagia, currently on tube feeding via PEG tube
- Hypothyroidism
- Hypertension
- Macular degeneration
- History of VTE, not currently on anticoagulation
Diagnostic Data
Chest X-Ray: 05/12/25- . Complete whiteout of the left lung, with volume loss of the left hemithorax, suggestive of left lung atelectasis. Left pleural effusion may also be present.
2. Right lung is clear.
CT Scan: CHEST 05/12/25- . Frothy secretions are seen within the left mainstem bronchus, resulting in total bronchial obstruction and atelectasis of the entire left lung. Consider bronchoscopy to exclude obstructing endobronchial mass.
2. Moderate left pleural effusion without CT evidence of significant loculation. No large pleural-based mass is appreciated, although evaluation is limited without intravenous contrast.
3. Severe coronary arterial calcification. Please correlate with symptoms of and risk factors for coronary artery disease, with further workup as clinically appropriate.
Total time spent today was 56 minutes for this encounter. Time includes reviewing laboratory test/imaging results, reviewing pertinent medical records, obtaining and reviewing medical history, performing an appropriate exam, ordering medications,
tests and procedures. Time also includes documentation of this encounter, coordinating patient care and communicating with other healthcare professionals. Total time does not include separately billed tests performed on this date of service.
Subjective Data
-
Date of Service:
Date of Service: May 18, 2025
Chief Complaint: Pulmonary Follow Up and Dyspnea Follow Up
Subjective:
Slept well, does not complain of difficulties mobilizing secretions, chest congestion, currently on dialysis, no chest pain or abdominal pain
Review of Systems
General: Other (Per HPI)
Objective Data
Data Reviewed
Vital Signs / I&O:
Vital Signs
Temp Pulse Resp BP Pulse Ox
98.3 F 62 18 120/49 98
05/18/25 07:18 05/18/25 07:55 05/18/25 07:55 05/18/25 08:49 05/18/25 07:55
Intake and Output
05/17/25 05/18/25 05/19/25
06:59 06:59 06:59
Intake Total 910 / 910
Output Total 100 / 100
Balance 910 / 910 -100 / -100
SaO2: 98
Nasal Cannula flow liters per minute: 3
Physical Exam
General: Respiratory Distress (negative), Comfortable, Chills (negative) and Sweats (negative)
HEENT: Normocephalic and Anicteric
Cardiovascular: Regular Rhythm, Murmur and Peripheral Edema (Trace lower extremity edema bilaterally)
Respiratory: Wheeze (negative), Crackles (Left base), Rhonchi (negative), Non-Labored Respirations and Other (Weak cough)
GI: Soft, Distended (Abdominal obesity), Non Tender and Normal Bowel Sounds
Neurology: Awake, Alert and Tremors (negative)
Skin: Warm, Good Color, Cyanosis (negative) and Jaundice (negative)
Labs/Micro/Reports
Lab Data
05/18/25 07:32
05/18/25 07:32
Microbiology
05/13/25 00:46 Blood/Venous Blood Culture - Final
No Growth - Final Report
05/13/25 00:46 Blood/Venous Blood Culture - Final
No Growth - Final Report
05/13/25 15:56 Bronch Washing Respiratory Culture - Final
Pseudomonas aeruginosa
S aureus-Methicillin Sensitive
05/13/25 15:56 Bronch Washing Gram Stain - Final
05/15/25 12:14 Urine Legionella Urinary Antigen - Final
Negative for Legionella pneumophila Serogroup 1 antigen.
A negative result does not rule out the possiblity of
Legionella infection due to other serogroups or species of
Legionella. Clinical correlation is recommended.
05/15/25 12:14 Urine Streptococcus pneumoniae Antigen (M - Final
Negative for Streptococcus pneumoniae antigen.
A negative result does not exclude infection with
Streptococcus pneumoniae. Clinical correlation is
recommended.
--- NOTE | 2025-05-18 11:09 | W.PN.NEPH.HD ---
Assessment
-
Patient seen on HD
sbp up to 130 after 5mg midorine given for hypotension
Progress Note - Hemodialysis
-
Date of Service: May 18, 2025
Duration: 30 minutes and 3 hours
Potassium Bath: 3
Calcium Bath: 2.5
Opti-Dialyzer: 160
Ultrafiltration: Other (3kg as tolerated )
Blood Flow: 400
Dialysate Flow: 600
Heparin: none
EPO: none
[2025-05-18 11:33] LABS: Glucose - Point of Care 164 mg/dl (70-99)
--- NOTE | 2025-05-18 12:18 | W.PN.ID1 ---
Date of Service
Date of Service: May 18, 2025
Today's Communication
Continue cefepime at 2g IV qMWF with dialysis, last dose 05/23/25.
Assessment / Plan
# LLE PNA/aspiration
# Mucous plugging left lung collapse s/p bronch (05/13)
# Leukocytosis - stable
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
# Dysphagia on tube feeds
# Chronic respiratory failure on O2
# PCN/sulfa allergy
- Bronch cx: Pseudomonas, Staph aureus (MSSA)
- Continue cefepime at 2g IV qMWF with dialysis, last dose 05/23/25.
- Infusion sheet handed to nurse case management.
Chief Complaint
-: Pneumonia
Subjective / Review of Systems
No complaints.
Vital Signs / Physical Exam
Vital Signs
Vital Signs
Temp Pulse Resp BP Pulse Ox
98.5 F 63 18 130/74 98
05/18/25 11:19 05/18/25 11:19 05/18/25 11:19 05/18/25 11:19 05/18/25 11:19
Physical Exam
Constitutional: No Acute Distress and Comfortable
Eyes: No Conjunctival Hemorrhage and Sclera Anicteric
Cardiovascular: Regular Rate
Pulmonary: Clear and Non Labored
Gastrointestinal: Soft, Non Tender, Non Distended and Normal Bowel Sounds
Neurological: AO x 3
Objective Data
Lab Data
Lab Results
05/18/25 07:32
05/18/25 07:32
PT Cancelled 05/13/25 08:39
INR Cancelled 05/13/25 08:39
Estimated Creat Clear 30 ml/min 05/18/25 07:32
Lactic Acid Cancelled 05/13/25 04:45
Total Bilirubin 0.5 mg/dl (0.2-1.3) 05/16/25 05:09
AST 17 U/L (17-59) 05/16/25 05:09
ALT 24 U/L (0-50) 05/16/25 05:09
Alkaline Phosphatase 120 U/L (38-126) 05/16/25 05:09
Most recent labs reviewed.
Micro Results:
05/13/25 00:46 Blood Culture - Final
Blood/Venous No Growth - Final Report
05/13/25 00:46 Blood Culture - Final
Blood/Venous No Growth - Final Report
05/13/25 15:56 Respiratory Culture - Final
Bronch Washing Pseudomonas aeruginosa
S aureus-Methicillin Sensitive
Gram Stain - Final
05/15/25 12:14 Legionella Urinary Antigen - Final
Urine Negative for Legionella pneumophila Serogroup 1 antigen.
A negative result does not rule out the possiblity of
Legionella infection due to other serogroups or species of
Legionella. Clinical correlation is recommended.
Streptococcus pneumoniae Antigen (M - Final
Negative for Streptococcus pneumoniae antigen.
A negative result does not exclude infection with
Streptococcus pneumoniae. Clinical correlation is
recommended.
05/13/25 15:56 Nasal Screen MRSA (PCR) - Final
Nose MRSA not detected - performed by PCR methodology.
05/12/25 22:38 Influenza Types A & B (LAURA) - Final
Nasal Swab Negative for Influenza A & B, NAAT
Negative results must be combined with clinical observations
and patient history.
Nucleic Acid Amplification test (NAAT)performed on the
[employer] platform.
05/15/25 CXR: Resolving left lung atelectasis.
05/13/[address]: Frothy secretions are seen within the left mainstem bronchus, resulting in total bronchial obstruction and atelectasis of the entire left lung. Consider bronchoscopy to exclude obstructing endobronchial mass. Moderate left pleural
effusion without CT evidence of significant loculation. No large pleural-based mass is appreciated, although evaluation is limited without intravenous contrast.
05/13/25 CXR: Complete whiteout of the left lung, with volume loss of the left hemithorax, suggestive of left lung atelectasis.
[2025-05-18] MEDS: APRESOLINE TUBE ×2 (12:33→12:34)
[2025-05-18] MEDS: LEXAPRO 20 MG TUBE (12:35)
[2025-05-18] MEDS: MIRALAX 17 GRAMS TUBE (12:35)
[2025-05-18] MEDS: DAILY VITAMIN/CENTRUM 15 ML TUBE (12:36)
[2025-05-18] MEDS: PREVACID 15 MG TUBE ×2 (12:36→21:29)
[2025-05-18] MEDS: HYDROPHOR 1 APPLIC TOPICAL (12:39)
[2025-05-18] MEDS: ANTIFUNGAL CLEAR 1 APPLIC TOPICAL ×2 (12:39→21:31)
[2025-05-18] MEDS: LAC HYDRIN, AM LACTIN LOTION 1 APPLIC TOPICAL (12:40)
--- NOTE | 2025-05-18 12:41 | WOUNDNOTE ---
[facility] RN note: Patient's sacral/perineum/scrotal/groin MASD improved. Current local care appropriate. Patient is on a Centrella Pro bed. Static air overlay applied with help from RN [employer] supervisor [employer]. Sacral shaped silicone border foam changed on
sacrum. Protective heel foam dressings changed. Skin on heels intact. Sacral skin intact. Scattered open skin r/t MASD on cristino/buttocks/scrotal skin improved from last week. Antifungal ointment applied to perineum. Patient turned to L semi side
lying position. Patient assists with turning. Heels off bed with pillows and Foot Waffle boots. Discussed with NICKI martínez tiger texted mobile disc jockey to clarify if Sport bed order can be cancelled. Patient on Acute care unit.
[2025-05-18] MEDS: LOPRESSOR 25 MG TUBE ×2 (12:48→21:30)
[2025-05-18] MEDS: MAXIPIME 2000 MG IV (14:32)
[2025-05-18] MEDS: STERILE WATER FOR INJECTION 10 ML IV (14:32)
--- NOTE | 2025-05-18 14:35 | W.PN.HOSP.TC ---
Addendum entered and electronically signed by Marcus Hardin MD 05/18/25 14:45:
Stage 2 sacral pressure injury, POA
Original Note:
Today's Communication/Plan
-
Discharge planning
Assessment / Plan
Assessment / Plan
Sepsis
Pseudomonas/MSSA pneumonia
Left lung collapse from mucous plugging
-CT chest with frothy secretions within the left mainstem bronchus, resulting in total bronchial obstruction and atelectasis of entire left lung.
-Status post [facility] 05/13. culture growing Pseudomonas/Staph aureus does not appear there was a whole lot of mucus. Suspect secondary to atelectasis possible from Guillain [place],
-NIF testing. NIF -25 to -30; very poor expectoration of secretions. Remain at risk of reaspiration
-Blood cultures NGTD
-Hypertonic saline, albuterol inh therapy
-ID recommended for patient to be maintained on IV cefepime 2g [facility] 05/23
-Chest US showing small effusion only
Acute on chronic hypoxic respiratory failure
- appears on continuous 2 L oxygen at [place] [facility]. Wean oxygen as tolerated
- Supplemental oxygen
- BiPAP at bedtime
ESRD -still makes urine, HD Friday
- Nephrology following for HD
- Fluid restricted diet
- Renal dose medication
- continue sevelamer
Insulin-dependent diabetes
- Increase dose of Lantus and novolog premeal
History of Guillian [place]
s/p PEG tube
Tube Feeding
- Patient on Nepro 7 5 mL per x 18 hours, starting at 3 PM to 9 AM at the [facility]
- on TF
CHF, unknown EF
suspect acute on chronic exacerbation
- HD as above
- Continue Bumex daily
- Continue hydralazine 25 4 times daily with holding parameter
Hypothyroidism
- Continue with levothyroxine
History of COPD
PE/DVT history
Chronic dysphagia
Macular degeneration
Hypertension
DVT PPX - heparin sq
Code status - Full Code
Anticipated Discharge: Today
Subjective/Interval History
-
Date of Service: May 18, 2025
Denies of having any shortness of breath/cough
No other issues
Objective Data
-
Labs:
Laboratory Results
05/18/25
07:32
WBC 14.7 H
Hgb 10.3 L
Hct 33.1 L
Plt Count 298
Sodium 136
Potassium 3.8
Chloride 101
Carbon Dioxide 28
BUN 53 H
Creatinine 2.7 H
Glucose 258 H
Calcium 9.9
Vital Signs:
Vital Signs
Temp Pulse Resp BP Pulse Ox
98.5 F 63 18 102/54 98
05/18/25 11:19 05/18/25 11:19 05/18/25 11:19 05/18/25 12:33 05/18/25 11:19
I&O
05/17/25 05/18/25 05/19/25
06:59 06:59 06:59
Intake Total 910 / 910
Output Total 100 / 100
Balance 910 / 910 -100 / -100
Review of Systems
-
Respiratory: Reports No Symptoms
Cardiac: Reports No Symptoms
Abdomen/GI: Reports No Symptoms
Physical Exam
-
General: No Apparent Distress and Comfortable
HEENT: Negative Oxygen
Respiratory: Rhonchi
Cardiac: Regular Rhythm and S1/S2; Negative Murmur or Rub
GI: Soft
Musculoskeletal: No Edema
Neuro: Awake, Alert, Oriented, No Motor Deficits and Nonfocal/Grossly Intact
Psych: Calm
[2025-05-18] MEDS: HEPARIN SC ×2 (16:34→16:35)
[2025-05-18] MEDS: APRESOLINE 25 MG TUBE ×2 (18:03→23:18)
[2025-05-18] MEDS: LIPITOR 40 MG TUBE (18:03)
[2025-05-18] MEDS: LANTUS 0.25 UNITS SC (18:07)
[2025-05-18 18:08] LABS: Glucose - Point of Care 222 mg/dl (70-99)
[2025-05-18] MEDS: MYSOLINE 50 MG TUBE (23:18)
[2025-05-18 23:34] LABS: Glucose - Point of Care 235 mg/dl (70-99)
[2025-05-19] MEDS: NOVOLOG FLEXPEN-LOW RESISTANCE 2 UNITS SC ×3 (00:23→13:12)
[2025-05-19] MEDS: NOVOLOG FLEXPEN 5 UNITS SC ×3 (00:24→13:28)
--- NOTE | 2025-05-19 03:00 | PTCARENOTE ---
Patient took off CPAP at approx 0245 and wanted to leave it off.
[2025-05-19] MEDS: SYNTHROID 150 MCG TUBE (05:05)
[2025-05-19 05:22] VITALS: BMI 32.4
[2025-05-19 06:13] LABS: Glucose - Point of Care 235 mg/dl (70-99)
[2025-05-19 07:08] VITALS: BP 117/69
[2025-05-19] MEDS: SODIUM CHLORIDE 3% FOR INHALATION 1 VIAL INH ×2 (07:24→13:42)
[2025-05-19] MEDS: VENTOLIN NEBULES 2.5 MG INH ×2 (07:25→13:42)
[2025-05-19] MEDS: LEXAPRO 20 MG TUBE (08:41)
[2025-05-19] MEDS: LOPRESSOR 25 MG TUBE (08:41)
[2025-05-19] MEDS: PREVACID 15 MG TUBE (08:41)
[2025-05-19] MEDS: SEVELAMER CARBONATE 0.8 GM TUBE (08:42)
[2025-05-19] MEDS: DAILY VITAMIN/CENTRUM 15 ML TUBE (08:42)
[2025-05-19] MEDS: MIRALAX 17 GRAMS TUBE (08:42)
[2025-05-19] MEDS: APRESOLINE 25 MG TUBE (08:42)
[2025-05-19] MEDS: HEPARIN 5000 UNITS SC (08:43)
[2025-05-19] MEDS: LAC HYDRIN, AM LACTIN LOTION 1 APPLIC TOPICAL (08:43)
[2025-05-19] MEDS: HYDROPHOR 1 APPLIC TOPICAL (08:44)
[2025-05-19] MEDS: BUMEX 2 MG TUBE (08:47)
[2025-05-19 08:50] VITALS: BP 126/54; PULSE 73; O2SAT 97
[2025-05-19 08:51] LABS: Hematocrit 33.1 % (39.0-52.0); Hemoglobin 10.6 g/dL (13.0-18.0); Mean Corp Hgb Conc. 32.0 g/dL (33.0-37.0); Mean Corpuscular Volume 91.9 fL (80.0-94.0); Platelet Count 277 10^3/uL (130-400); Red Cell Dist. Width 15.9 % (11.5-14.5)
[2025-05-19 09:24] LABS: Blood Urea Nitrogen 39 mg/dl (9-20); Calcium 9.8 mg/dl (8.4-10.2); Carbon Dioxide 30 mmol/L (22-30); Chloride 98 mmol/L (98-107); Estimated Creatinine Clearance 37 ml/min; Glucose 254 mg/dl (70-99); Potassium 3.8 mmol/L (3.5-5.1); Sodium 133 mmol/L (135-145); eGFR 30.66
[2025-05-19] MEDS: ANTIFUNGAL CLEAR 1 APPLIC TOPICAL (09:42)
--- NOTE | 2025-05-19 09:52 | W.PN.PUL.V3 ---
Today's Communication / Plan
-
Wean oxygen
Increase physical therapy
Mucus clearing maneuvers
Follow radiographically for increased shortness of breath
No need for additional bronchoscopies at this time
Not enough fluid for thoracentesis on chest ultrasound
Stable for proposed discharge from a pulmonary perspective
Assessment
-
Patient is a 74-year-old male with previous history of Guillain-Wright� syndrome, COPD, chronic respiratory failure on home oxygen, diabetes, end-stage renal disease on HD MWF, PE/DVT, chronic dysphagia status post PEG presenting to ER from [facility]
[place] with fevers, cough and shortness of breath. He has been having difficulty with expectorating mucus. He is quite immobile from his neuromuscular disease and can use his upper extremities to a limited degree. Chest x-ray obtained indicating
left-sided whiteout with suspicion for mucous plugging. He is currently 97% on room air.
We are consulted for evaluation.
Conditions present prior to admission
Guillain-Wright� syndrome
Chronic respiratory failure on home oxygen
History of COPD
ESRD on HD MWF
PE DVT history
Diabetes
Chronic dysphagia status post PEG
Obesity
Hypertension
GERD
Macular degeneration
Ulcerative colitis
Sick sinus syndrome
Assessment and plan:
#1. Acute on chronic left-sided bronchial obstruction likely from mucous plugging in the setting of left lung pneumonia/aspiration with pleural effusion
-S/p bronchoscopy by Dr. Eng with airway clearance on 05/13/25 with significant improvement
-X-ray 05/14 showed worsening atelectasis again, responded well to BiPAP as well as airway clearance measures with improving chest x-ray 05/15
-Patient has very poor cough and also concomitant suspected neuromuscular weakness with poor clearance of airway
-Attempted to use Cofflator -> pt did not tolerate
-Pulmonary toilet is pickett � start support bed with nebulized 3% + nebulized albuterol
-Serial CXR if needed would consider repeat bronchoscopy if left-sided atelectasis worsens
-Check left sided chest ultrasound-05/17/2025-small amount of fluid and not enough for thoracentesis
-MRSA screen negative discontinue vancomycin, discontinue Flagyl. Continue cefepime for now and follow-up on respiratory cultures (grew Pseudomonas aeruginosa and rare Staph aureus)
- ID consulted - defer ABx to them-currently on cefepime
- Trend WBC and monitor temperature curve
#2. 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
-NIF testing -25 to -30, very weak cough with poor expectoration of secretions
-Continue daily NIF
-VBG reviewed, compensated hypercapnia noted again suggestive of underlying nocturnal hypoventilation
-Initiated BiPAP 09/30, nightly, during napping and as needed. Patient will need long-term PAP therapy postdischarge
-Continue flutter valve-encouraged, chest physical therapy
-Continue hypertonic saline to 3 times daily nebulizer along with albuterol 3 times daily.
-Patient is profoundly deconditioned and has been in various health facilities over the last 7 months, currently essentially bedbound; PT/OT recommended
Goal BG 140�180
DVT prophylaxis-on heparin
Reviewed with primary team-stable for potential discharge from a pulmonary perspective
Other medical diagnoses:
- End-stage renal disease, on hemodialysis, nephrology service on case
- Insulin-dependent diabetes mellitus, on Lantus and scheduled short-acting along with sliding scale insulin
- Chronic dysphagia, currently on tube feeding via PEG tube
- Hypothyroidism
- Hypertension
- Macular degeneration
- History of VTE, not currently on anticoagulation
Diagnostic Data
Chest X-Ray: 05/12/25- . Complete whiteout of the left lung, with volume loss of the left hemithorax, suggestive of left lung atelectasis. Left pleural effusion may also be present.
2. Right lung is clear.
CT Scan: CHEST 05/12/25- . Frothy secretions are seen within the left mainstem bronchus, resulting in total bronchial obstruction and atelectasis of the entire left lung. Consider bronchoscopy to exclude obstructing endobronchial mass.
2. Moderate left pleural effusion without CT evidence of significant loculation. No large pleural-based mass is appreciated, although evaluation is limited without intravenous contrast.
3. Severe coronary arterial calcification. Please correlate with symptoms of and risk factors for coronary artery disease, with further workup as clinically appropriate.
Total time spent today was 56 minutes for this encounter. Time includes reviewing laboratory test/imaging results, reviewing pertinent medical records, obtaining and reviewing medical history, performing an appropriate exam, ordering medications,
tests and procedures. Time also includes documentation of this encounter, coordinating patient care and communicating with other healthcare professionals. Total time does not include separately billed tests performed on this date of service.
Subjective Data
-
Date of Service:
Date of Service: May 19, 2025
Chief Complaint: Pulmonary Follow Up and Dyspnea Follow Up
Subjective:
Feels better, does not complain of chest congestion, productive cough, no chest pain or abdominal pain, getting up with physical therapy this morning
Review of Systems
General: Other (Per HPI)
Objective Data
Data Reviewed
Vital Signs / I&O:
Vital Signs
Temp Pulse Resp BP Pulse Ox
98.3 F 63 16 117/69 98
05/19/25 07:08 05/19/25 07:28 05/19/25 07:28 05/19/25 08:41 05/19/25 07:28
Intake and Output
05/18/25 05/19/25 05/20/25
06:59 06:59 06:59
Output Total 100 / 100
Balance -100 / -100
SaO2: 98
Nasal Cannula flow liters per minute: 3
Physical Exam
General: Respiratory Distress (negative), Comfortable, Chills (negative) and Sweats (negative)
HEENT: Normocephalic and Anicteric
Cardiovascular: Regular Rhythm, Murmur and Peripheral Edema (Trace lower extremity edema bilaterally)
Respiratory: Wheeze (negative), Crackles (Left base), Rhonchi (negative), Non-Labored Respirations and Other (Weak cough)
GI: Soft, Distended (Abdominal obesity), Non Tender and Normal Bowel Sounds
Neurology: Awake, Alert and Tremors (negative)
Skin: Warm, Good Color, Cyanosis (negative) and Jaundice (negative)
Labs/Micro/Reports
Lab Data
05/19/25 08:19
05/19/25 08:19
Microbiology
05/13/25 00:46 Blood/Venous Blood Culture - Final
No Growth - Final Report
05/13/25 00:46 Blood/Venous Blood Culture - Final
No Growth - Final Report
05/13/25 15:56 Bronch Washing Respiratory Culture - Final
Pseudomonas aeruginosa
S aureus-Methicillin Sensitive
05/13/25 15:56 Bronch Washing Gram Stain - Final
--- NOTE | 2025-05-19 11:00 | CM ---
CM reviewed chart, [facility], aware patient on IV antibiotics. CM spoke with patients , Ashlee, discussed PT feels SNF appropriate for patient and not acute. agreeable for patient to
return to [facility], will be visiting patient today. Patient seen bedside, agreeable to [facility]. IMM verbally reviewed, provided with copy, placed in chart. CM will continue to follow for all discharge planning needs.
Plan; [facility], 4:00 p.m. ambulance transport
[facility]
Report: [phone]
[2025-05-19 11:50] LABS: Glucose - Point of Care 238 mg/dl (70-99)
[2025-05-19] MEDS: APRESOLINE TUBE (13:14)
--- NOTE | 2025-05-19 13:55 | W.PN.HOSP.TC ---
Today's Communication/Plan
-
d/c [facility]
Assessment / Plan
Assessment / Plan
Sepsis
Pseudomonas/MSSA pneumonia
Left lung collapse from mucous plugging
-CT chest with frothy secretions within the left mainstem bronchus, resulting in total bronchial obstruction and atelectasis of entire left lung.
-Status post [facility] 05/13. culture growing Pseudomonas/Staph aureus does not appear there was a whole lot of mucus. Suspect secondary to atelectasis possible from Guillain Kimberly,
-NIF testing. NIF -25 to -30; very poor expectoration of secretions. Remain at risk of reaspiration
-Blood cultures NGTD
-Hypertonic saline, albuterol inh therapy
-ID recommended for patient to be maintained on IV cefepime 2g MWF 05/23
-Chest US showing small effusion only
Acute on chronic hypoxic respiratory failure
- appears on continuous 2 L oxygen at [facility]. Wean oxygen as tolerated
- Supplemental oxygen
- BiPAP at bedtime
ESRD -still makes urine, HD Friday
- Nephrology following for HD
- Fluid restricted diet
- Renal dose medication
- continue sevelamer
Insulin-dependent diabetes
- Increase dose of Lantus and novolog premeal
History of Guillian Kimberly
s/p PEG tube
Tube Feeding
- Patient on Nepro 7 5 mL per x 18 hours, starting at 3 PM to 9 [facility]
- on TF
CHF, unknown EF
suspect acute on chronic exacerbation
- HD as above
- Continue Bumex daily
- Continue hydralazine 25 4 times daily with holding parameter
Hypothyroidism
- Continue with levothyroxine
History of COPD
PE/DVT history
Chronic dysphagia
Macular degeneration
Hypertension
DVT PPX - heparin sq
Code status - Full Code
More than 30 minutes spent in discharge including
Final examination of the patient
Summarizing hospital stay
Instructions for continuing care to all relevant caregivers
Preparation of discharge records, prescriptions, and referral forms
Total time spent (in minutes): 39 mins
Anticipated Discharge: Today
Subjective/Interval History
-
Date of Service: May 19, 2025
no new problems
o2 requirement remains stable
Objective Data
-
Labs:
Laboratory Results
05/19/25
08:19
WBC 15.7 H
Hgb 10.6 L
Hct 33.1 L
Plt Count 277
Sodium 133 L
Potassium 3.8
Chloride 98
Carbon Dioxide 30
BUN 39 H
Creatinine 2.2 H
Glucose 254 H
Calcium 9.8
Vital Signs:
Vital Signs
Temp Pulse Resp BP Pulse Ox
98.3 F 64 16 117/69 97
05/19/25 07:08 05/19/25 13:46 05/19/25 13:46 05/19/25 13:14 05/19/25 13:46
I&O
05/18/25 05/19/25 05/20/25
06:59 06:59 06:59
Output Total 100 / 100
Balance -100 / -100
Review of Systems
-
Respiratory: Reports No Symptoms
Cardiac: Reports No Symptoms
Abdomen/GI: Reports No Symptoms
Physical Exam
-
General: No Apparent Distress and Comfortable
HEENT: Negative Oxygen
Respiratory: Rhonchi
Cardiac: Regular Rhythm and S1/S2; Negative Murmur or Rub
GI: Soft
Musculoskeletal: No Edema
Neuro: Awake, Alert, Oriented, No Motor Deficits and Nonfocal/Grossly Intact
Psych: Calm
[2025-05-19 15:10] VITALS: BP 125/47
--- NOTE | 2025-05-19 15:51 | PTCARENOTE ---
Report given to Tere at [facility] via telephone. Pickup time scheduled for 1600. Patient's is taking belongings over to facility.
--- NOTE | 2025-05-19 16:10 | W.PN.NEPH.PH ---
Today's Communication / Plan
-
Stable for discharge for dialysis tomorrow at [facility]
Assessment/Plan
-
Impression:
Complicated pneumonia -on pneumonia with possible large parapneumonic effusion, non-septic (lung atelectasis)
Eric Wright�
ESRD -still makes urine, HD Friday
Insulin-dependent diabetes
PEG
CHF
Hyperphosphatemia
CAD
Hypothyroidism
Plan:
Patient fo discharge today [facility]
Regularly scheduled dialysis will be performed tomorrow at outpatient unit
-
-
Date of Service: May 19, 2025
CC / HPI / ROS
-
Chief Complaint:
ESRD
History of Present Illness:
ESRD Friday
Requiring BiPAP at night for lung atelectasis
Remains on nasal cannula oxygen
Review of Systems:
No reported shortness of breath or chest pain
Labs
-
Labs:
WBC 15.7 10^3/uL (4.8-10.8) H 05/19/25 08:19
RBC 3.60 10^6/uL (4.70-6.10) L 05/19/25 08:19
Hgb 10.6 g/dL (13.0-18.0) L 05/19/25 08:19
Hct 33.1 % (39.0-52.0) L 05/19/25 08:19
Plt Count 277 10^3/uL (130-400) 05/19/25 08:19
Sodium 133 mmol/L (135-145) L 05/19/25 08:19
Potassium 3.8 mmol/L (3.5-5.1) 05/19/25 08:19
Chloride 98 mmol/L (98-107) 05/19/25 08:19
Carbon Dioxide 30 mmol/L (22-30) 05/19/25 08:19
BUN 39 mg/dl (9-20) H 05/19/25 08:19
Creatinine 2.2 mg/dL (0.7-1.3) H 05/19/25 08:19
eGFR 30.66 05/19/25 08:19
Glucose 254 mg/dl (70-99) H 05/19/25 08:19
Calcium 9.8 mg/dl (8.4-10.2) 05/19/25 08:19
Dzi-O-Knejxyfhodi Pept 6220 pg/ml 05/12/25 23:09
Albumin 3.2 g/dl (3.5-5.0) L 05/16/25 05:09
Physical Exam
-
Vital Signs:
Vital Signs
Temp Pulse Resp BP Pulse Ox
98.3 F 64 16 117/69 97
05/19/25 07:08 05/19/25 13:46 05/19/25 13:46 05/19/25 13:14 05/19/25 13:46
Respiratory:: Bilateral: Coarse and Bilateral: Rales
Lung Excursion:: Normal
Abdomen:: Soft
Bowel Sounds:: Normal
Extremity Edema:: +1: Bilateral:
--- NOTE | 2025-05-20 13:49 | W.DCSUMMARY ---
Discharge Summary
Discharge Data
Date of Admission: 05/13/25
Date of Discharge: 05/19/25
-
Pending Results: No
Hospital Course
Discharging Physician : Dr Marcus Hardin
Disposition : To care home
Primary care physician : None
Principal Discharge diagnosis :
Sepsis from Pseudomonas and methicillin sensitive Staphylococcus aureus
Left lung collapse from mucous plugging
Acute on chronic hypoxic respiratory failure
Chronic Discharge diagnosis :
End-stage renal disease on hemodialysis
Insulin-dependent diabetes mellitus
History of Guillain-Wright� syndrome
History of gastrostomy tube on tube feed
Chronic diastolic congestive heart failure
Hypothyroidism
History of chronic obstructive pulmonary disease
History of pulmonary embolism/deep venous thrombosis
Chronic dysphagia
Essential hypertension
Hospital Course :
Patient is a 74-year-old male with no major past medical history came to ER with new onset of shortness of breath and cough and fever. In ER on evaluation patient was noted to having left lung collapse/whiteout. A CT of the chest was done which
showed a large left effusion with complete collapse of the left lung with left main bronchus showing aspirated material/phlegm. Patient was started on empiric antibiotic and was admitted to ICU for close monitoring. Pulmonology was involved in
care and patient underwent bronchoscopic lavage/aspiration of the left lung. Lavage fluid culture later grew Pseudomonas/Staphylococcus aureus and based on sensitivity patient was maintained on cefepime. ID was involved in care and was following
along, discharge patient was recommended to have 1 week of cefepime course. A chest ultrasound was showing a small effusion before discharge which was not amenable to thoracentesis. Patient also had significant hypoxemia which improved with
patient returning to baseline oxygen requirement of 2 L through nasal cannula. Post stabilization patient was discharged to [facility] for continual of care.
Important imaging findings :
None
Procedure findings :
None
Discharge Plan
-
Patient Disposition: Retirement/SNF
Discharge Diagnosis/Procedures: Pseudomonas/staph aspiration pneumonia
Condition: Fair
Diet: Tube feeding
Activity: As tolerated
Driving Restrictions: No driving
Bathing Restrictions: OK to Shower
Activity Restrictions/Additional Instructions:
Wound Care Instructions
Sacrum-clean with saline or soap and water, miconazole powder followed by no sting barrier wipe prn yeasty red skin, silicone border foam, change q 2 days and prn loosened dressing. If foam ineffective, apply antifungal ointment BID instead.
Perineum/groin MASD-antifungal ointment BID.
L elbow-clean with saline, silicone border foam, change q 3 days and prn loosened dressing.
Heels-protective foam dressing, change q 3 days and prn loosened dressing.
Aquaphor ointment to dry skin Le's daily.
Air mattress
Turning schedule
Elevate heels off bed with pillows or soft heel relief boots.
Pressure redistributing chair cushion (i.e. Air, Roho).
Follow up with wound healthcare or medical or at wound care center call for an appointment as needed.
Referrals:
Watson Capellan MD [Active, Pulmonary Medicine] - in two to three weeks
NONE,* [Family Provider, Internal Medicine]
Prescriptions:
Continued
atorvastatin 40 mg Tablet
40 mg feeding tube QPM
acetaminophen 325 mg Tablet
325 mg FEEDING TUBE ONCE PRN (Reason: pain, fever)
aspirin 325 mg Tablet
325 mg feeding tube DAILY
ascorbic acid (vitamin C) 500 mg Tablet
500 mg feeding tube DAILY
ammonium lactate 12 % Cream
1 applic TOPICAL DAILY
bumetanide 2 mg Tablet
2 mg feeding tube DAILY
Rx Instructions:
AM every friday, , sat and sun
hydralazine 25 mg Tablet
25 mg feeding tube QID
cabergoline 0.5 mg Tablet
0.5 mg FEEDING TUBE ONCE
Rx Instructions:
every 4 days
escitalopram oxalate 20 mg Tablet
20 mg feeding tube DAILY
guaifenesin 200 mg/5 mL Liquid
200 mg feeding tube Q4H PRN (Reason: cough)
insulin glargine 100 unit/mL (3 mL) Insulin Pen
24 unit SC QPM
cholecalciferol (vitamin D3) 50 mcg (2,000 unit) Tablet
50 mcg feeding tube DAILY
ipratropium-albuterol 0.5 mg-3 mg(2.5 mg base)/3 mL Solution For Nebulization
3 ml INHALATION Q6H PRN (Reason: SOB)
levothyroxine 150 mcg Tablet
150 mcg feeding tube DAILY
lansoprazole 15 mg Capsule,Delayed Release(Dr/Ec)
10 mg feeding tube BID
metoprolol tartrate 25 mg Tablet
25 mg feeding tube BID
lidocaine HCl 4 % Adhesive Patch,Medicated
1 patch TOPICAL DAILY PRN (Reason: pain)
Rx Instructions:
left shoulder
multivitamin Tablet
1 tab FEEDING TUBE DAILY
primidone 50 mg Tablet
50 mg feeding tube HS
Novolin R FlexPen 100 unit/mL (3 mL) Insulin Pen
1 sliding scale dose SC DIRECTED
Novolin R FlexPen 100 unit/mL (3 mL) Insulin Pen
4 unit SC BID
Rx Instructions:
AC/HS
sevelamer carbonate 0.8 gram Powder In Packet
0.8 g feeding tube TID
Rx Instructions:
with meals
balsam rush-castor oil [Venelex] Ointment
1 applic TOPICAL QID
polyethylene glycol 3350 4.25 gram Powder In Packet
4.25 g feeding tube DAILY
Discharge Orders:
Discharge Patient (As Directed); Ordered 05/19/25
Ordered By: Marcus Hardin
Discharge Date and Time
Discharge Date/Time: 05/19/25 16:21
Print Language: ARMENIAN
--- NOTE | 2025-05-25 13:11 | PN.CDI ---
CDI
- -
CDI:
Physician Documentation Request
Admit Date: 05/13/25 03:39
Dear Doctor Supa,
Patient admitted with pneumonia.
ED note, 'Patient does not meet criteria for sepsis.'
H&P, 'Currently does not meet sepsis criteria without fever or tachycardia in the ED.'
05/13 PN,'Complicated pneumonia -on pneumonia with possible large parapneumonic effusion...Sepsis (leukocytosis, tachypnea) likely secondary to above.'
On admission, WBC 22.0 and HR>90.
Please clarify the following:
Sepsis was present on admission
Sepsis evolved during the hospital stay
Other
Use of terms such as suspected, likely, concern for, or probable (associated with a specific diagnosis that is being evaluated, monitored, or treated as if it exists) are acceptable and can be coded in the inpatient setting, when documented at the
time of discharge.
Thank you,
Jossie COELHO,RN,CCDS
CDI Specialist
Available via tiger text
Please use your independent medical judgment in providing your response.
== END 2025-05-19 16:21 | DRG 871 ==
LOC: 4 WEST ACU 03:39
PROVIDERS: Emergency Medicine; Internal Medicine; Internal Medicine Nephrology; ADMITTING PHYSICIAN Internal Medicine; ATTENDING PHYSICIAN Hospitalist; CONSULT PHYSICIAN Internal Medicine; EMERGENCY PHYSICIAN Emergency Medicine; OTHER PHYSICIAN Internal Medicine Infectious Disease; OTHER PHYSICIAN Specialist
PROC: 5A09357 Assistance with Respiratory Ventilation, Less than 24 Consecutive Hours, Continuous Positive Airway Pressure (ICD-10-PCS; 2025-05-13)
PROC: 0B9M8ZX Drainage of Bilateral Lungs, Via Natural or Artificial Opening Endoscopic, Diagnostic (ICD-10-PCS; 2025-05-13)
PROC: 0BD68ZX Extraction of Right Lower Lobe Bronchus, Via Natural or Artificial Opening Endoscopic, Diagnostic (ICD-10-PCS; 2025-05-13)
PROC: 0BD58ZX Extraction of Right Middle Lobe Bronchus, Via Natural or Artificial Opening Endoscopic, Diagnostic (ICD-10-PCS; 2025-05-13)
PROC: 0BD48ZX Extraction of Right Upper Lobe Bronchus, Via Natural or Artificial Opening Endoscopic, Diagnostic (ICD-10-PCS; 2025-05-13)
PROC: 5A1D70Z Performance of Urinary Filtration, Intermittent, Less than 6 Hours Per Day (ICD-10-PCS; 2025-05-13)
DX: A41.52 Sepsis due to Pseudomonas (principal); J69.0 Pneumonitis due to inhalation of food and vomit; J96.21 Acute and chronic respiratory failure with hypoxia; N18.6 End stage renal disease; T17.890A Other foreign object in other parts of respiratory tract causing asphyxiation, initial encounter; J44.0 Chronic obstructive pulmonary disease with (acute) lower respiratory infection; E87.1 Hypo-osmolality and hyponatremia; J98.11 Atelectasis; I13.2 Hypertensive heart and chronic kidney disease with heart failure and with stage 5 chronic kidney disease, or end stage renal disease; G61.0 Guillain-Barre syndrome; K51.90 Ulcerative colitis, unspecified, without complications; R32 Unspecified urinary incontinence; D69.6 Thrombocytopenia, unspecified; E11.22 Type 2 diabetes mellitus with diabetic chronic kidney disease; W44.F9XA Other object of natural or organic material, entering into or through a natural orifice, initial encounter; Y93.9 Activity, unspecified; Y92.129 Unspecified place in nursing home as the place of occurrence of the external cause; H35.30 Unspecified macular degeneration; I50.9 Heart failure, unspecified; R13.10 Dysphagia, unspecified; E83.39 Other disorders of phosphorus metabolism; I25.10 Atherosclerotic heart disease of native coronary artery without angina pectoris; E03.9 Hypothyroidism, unspecified; G70.9 Myoneural disorder, unspecified; J98.09 Other diseases of bronchus, not elsewhere classified; E11.65 Type 2 diabetes mellitus with hyperglycemia; E83.52 Hypercalcemia; E66.9 Obesity, unspecified; K21.9 Gastro-esophageal reflux disease without esophagitis; L89.152 Pressure ulcer of sacral region, stage 2; B95.61 Methicillin susceptible Staphylococcus aureus infection as the cause of diseases classified elsewhere; Z60.2 Problems related to living alone; Z96.653 Presence of artificial knee joint, bilateral; Z86.718 Personal history of other venous thrombosis and embolism; Z93.1 Gastrostomy status; Z79.82 Long term (current) use of aspirin; Z79.890 Hormone replacement therapy; Z79.4 Long term (current) use of insulin; Z99.2 Dependence on renal dialysis; Z99.81 Dependence on supplemental oxygen; Z86.711 Personal history of pulmonary embolism; Z88.0 Allergy status to penicillin; Z88.2 Allergy status to sulfonamides; Z88.8 Allergy status to other drugs, medicaments and biological substances; Z91.041 Radiographic dye allergy status; Z68.32 Body mass index [BMI] 32.0-32.9, adult; Z11.52 Encounter for screening for COVID-19; Z74.01 Bed confinement status; Z95.0 Presence of cardiac pacemaker
CPT/HCPCS: 71045; 71046; 71250; 76604; 80048; 80053; 80202; 82805; 82962; 83605; 83615; 83880; 84484; 85025; 85027; 85379; 87040; 87070; 87077; 87147; 87186; 87205; 87449; 87502; 87641; 87811; 87899; 93005; 94640; 94660; 96365; 96375; 97110; 97163; 97167; 97530; 99285; G0257; P9047; Q5106

== ENCOUNTER 2025-06-06 16:46 | Inpatient (IN) | payer MEDICARE, SELFPAY ==
[2025-06-06] VITALS (44 sets, daily range): BP systolic 80–167; BP diastolic 42–114; BMI 33.2
--- NOTE | 2025-06-06 13:30 | ED.GENMED ---
History of Present Illness
General
Chief Complaint: CODE
Source: ambulance crew
Exam Limitations: clinical condition
Time Seen by Provider: 06/06/25 13:27
History of Present Illness
History of Present Illness:
See MDM
Past History
Past History
ED Past Medical History: Other (GBS, diabetes, thrombocytopenia, kidney failure/hemodialysis, left upper extremity DVT, COPD, reflux)
Social History
Tobacco: Non-smoker
Drug: None
Personal:
Living: long term
Phy Exam
Physical Exam
Physical Exam:
See MDM
Course
Orders/Labs/Results
Orders:
Orders
06/06/25
Electrocardiogram (*1) Stat
Comment: DONE
06/06/25 13:28
CT Head W/o Iv Contrast Urgent
Comment:
Reason For Exam: code, unresponsive
CR Chest Portable - 1 View Urgent
Comment:
Reason For Exam: intubated
Reason Study Needs to be Portable: Patient Unstable
06/06/25 13:32
Complete Blood Count/With Diff Urgent
Comprehensive Metabolic Panel Urgent
Lactic Acid Q4H
Comment: CANCEL 2nd LACTIC ACID IF 1st LACTIC ACID IS LESS THAN 2
NT-proBNP Urgent
PTT Urgent
Prothrombin Time Urgent
Troponin I Urgent
06/06/25 13:34
ABG [Arterial Blood Gas] Urgent
%Oxygen/Room Air: RA
06/06/25 14:08
Piperacillin/Tazo 3.375 Gram [Zosyn] 3.375 gram in 50 ml IV NOW
06/06/25 14:34
Vancomycin [Vancocin] 1,500 mg 0.9% Sodium Chloride 500 ml [Nss] 500 ml IV NOW
06/06/25 15:04
Midazolam HCl [Versed] 2 mg IV NOW STA
06/06/25 15:29
Triglycerides Routine
Comment: baseline levels with propofol infusion
Propofol 1,000,000 Mcg/100 ml [Diprivan] 1,000,000 mcg in 100 ml IV NOW
Indication:: Light Sedation
Begin Infusion:: Now
Goal:: RASS 0 to -2
Maximum dose in mcg/kg/min:: 50
Initial dose based on RASS:: Yes
If RASS is:: +1 or pt hemodynamically unstable (SBP < 90mmHg), initiate at 10 mcg/kg/min
If RASS is:: +2, initiate at 20 mcg/kg/min
If RASS is:: greater than or equal to +3, initiate at 30 mcg/kg/min
Titration Instructions:: Titrate by 5-10 mcg/kg/min every 5 minutes until RASS 0 to -2 achieved.
Taper Instructions:: If RASS is at or below goal for 4 consecutive hours decrease infusion by
Taper Instructions:: 5-10 mcg/kg/min every 2 hours to off.
Over-sedation Instructions:: If CPOT 0-2 (at goal) AND RASS -3 to -5 (below goal) decrease sedative by
Over-sedation Instructions:: 50% first. If pain score remains at goal and RASS remains below goal in
Over-sedation Instructions:: 1 hour, decrease opioid infusion by 50%.
Notify provider:: immediately if patient exhibits signs/symptoms of propofol-related
Notify provider:: infusion syndrome.
Additional Instructions:: Patient MUST be mechanically ventilated and MUST receive analgesia.
06/06/25 17:30
Lactic Acid Q4H
Comment: CANCEL 2nd LACTIC ACID IF 1st LACTIC ACID IS LESS THAN 2
Abnormal Lab Results
06/06/25 06/06/25
13:32 13:34
WBC 26.2 H 10^3/uL
(4.8-10.8)
RBC 3.84 L 10^6/uL
(4.70-6.10)
Hgb 10.9 L g/dL
(13.0-18.0)
Hct 36.8 L %
(39.0-52.0)
MCV 95.8 H fL
(80.0-94.0)
MCHC 29.6 L g/dL
(33.0-37.0)
RDW 15.7 H %
(11.5-14.5)
MPV 12.8 H fL
(7.4-10.4)
Abs Immat Gran (auto) 2.4 H 10^3/uL
(0-0.05)
Absolute Neuts (auto) 17.5 H 10^3/uL
(1.4-6.5)
Absolute Lymphs (auto) 3.7 H 10^3/uL
(1.2-3.4)
Absolute Monos (auto) 1.7 H 10^3/uL
(0.1-0.6)
Immature Gran % 9.2 H %
(0-0.5)
Lymphocytes % 14.2 L %
(20.5-51.1)
PT 16.5 H Sec
(11.4-14.6)
APTT 43.1 H Sec
(23.4-35.0)
pH 7.00 L*
(7.35-7.45)
pCO2 67 H mmHg
(35-48)
pO2 143 H mmHg
(83-108)
HCO3 16.5 L mmol/L
(21-28)
ABG O2 Sat (Measured) 99.9 H %
(94-98)
Sodium 132 L mmol/L
(135-145)
Potassium 3.4 L mmol/L
(3.5-5.1)
Carbon Dioxide 20 L mmol/L
(22-30)
BUN 41 H mg/dl
(9-20)
Creatinine 2.4 H mg/dL
(0.7-1.3)
Glucose 284 H mg/dl
(70-99)
Lactic Acid 8.0 H* mmol/L
(0.7-2.0)
AST 159 H U/L
(17-59)
ALT 130 H U/L
(0-50)
Alkaline Phosphatase 223 H U/L
(38-126)
Total Protein 6.1 L g/dl
(6.3-8.2)
06/06/25 13:32
06/06/25 13:32
Vital Signs
Initial and Last Documented VS:
Initial Vital Signs
Pulse Resp BP Pulse Ox
60 18 102/88 100
06/06/25 13:20 06/06/25 13:20 06/06/25 13:20 06/06/25 13:20
Last Documented Vital Signs
Temp Pulse Resp BP Pulse Ox
96.7 F L 78 18 138/63 97
06/06/25 13:28 06/06/25 14:30 06/06/25 14:30 06/06/25 14:30 06/06/25 14:30
MDM/Problems Addressed
Differential Diagnosis Includes:
HPI and MDM Narrative:
74-year-old male presenting as a PEA code. Patient presents by EMS. Patient coded just before his dialysis session ended. Per EMS, patient is full code. They provided CPR and epinephrine and intubated. On arrival, patient is intubated with a
GCS of 3.
EKG shows a paced rhythm. Patient is unresponsive
Will obtain chest x-ray to evaluate ET tube placement. Will obtain CT head given his unresponsiveness. Will obtain basic blood work looking for metabolic derangement
Physical exam
General: Unresponsive, GCS 3
HEENT: protecting airway. Pupils equal reactive
Neck: appears supple
CV: No evidence of cyanosis. Regular rate and rhythm
Resp: No accessory muscle use
Abd: Non-distended
Extremities: No deformities
Neuro: GCS 3
Psych: Normal affect
Skin: Intact
Problems Addressed including Acute and Chronic Conditions affecting care:
1. Postcode
Acuity: acute
Prognosis: unstable
Details: Given his history of end-stage renal disease, will obtain basic blood work looking for metabolic derangement. Will obtain ABG. Will obtain CT head and chest x-ray
2. Aspiration
Acuity: acute
Prognosis: stable
Details: Patient started antibiotics
Updates
Case discussed with his son who confirms that patient is full code. Chest x-ray concerning for left lobe aspiration versus pneumonia. Will start antibiotics
3:30 PM patient becoming increasingly agitated despite his dose of Versed. Will start propofol drip
Differential Diagnosis (but not limited to): Hyperkalemia, STEMI, intracranial hemorrhage
Testing considered: Urinalysis
Drug therapy (if applicable): OTC meds, please see d/c instruction regarding Rx drugs
Amount and/or Complexity of Data Reviewed
Clinical info obtained from: EMS
External data reviewed: N/A
Labs I independently reviewed (but not limited to): Leukocytosis, elevated lactic acid, acidotic
Radiology: X-ray independently reviewed: Chest x-ray concerning for left sided pneumonia
Pulse Ox: not hypoxic
EKG independently reviewed: Atrial paced rhythm, left axis, no STEMI
Ve Teacher: Paced rhythm
Critical Care: The high probability of a clinically significant, sudden or life threatening deterioration of the cardiopulmonary system(s) required my full and direct attention, intervention and personal management. The aggregate critical care time
was 33 minutes. This time is in addition to time spent performing reported procedures but includes the following:
[x] Data Review and interpretation
[x] Patient assessment and monitoring of vital signs
[x] Documentation
[x] Medication orders and management
Risk of Complication:
Social Determinants of health: Good social support
Discussed with other providers: Hospitalist
Escalation of Care includes Admit/Obs: Given the code in the respiratory status, will admit to ICU
Occasional wrong word or 'sound a like' substitutions may have occurred due to the inherent limitations of voice recognition software. Read the chart carefully and recognize, using context, where substitutions have occurred.
*Pulse Oximetry
SaO2: 100
Oxygen Mode of Delivery: Ventilator
Patient hypoxic: no
*Critical Care Note
Total Time (30-74mins, 75-104mins- exclusive of procedures): 33 min
ED Attending Note
-
Portions of this chart may have been created with voice recognition software.� Occasional wrong word or��sound alike� substitutions may have occurred due to the inherent limitations of voice recognition software.
Discharge Plan
Departure
Patient Disposition: Admit
Date of Disposition: 06/06/25
Time of Disposition: 15:37
Admit to: ICU
Presentation/result/management discussed w/ accepting MD/DO: Hospitalist
Discharge Problem:
Cardiac arrest
Prescriptions:
No Action
atorvastatin 40 mg Tablet
40 mg feeding tube QPM
acetaminophen 325 mg Tablet
325 mg FEEDING TUBE ONCE PRN (Reason: pain, fever)
aspirin 325 mg Tablet
325 mg feeding tube DAILY
ascorbic acid (vitamin C) 500 mg Tablet
500 mg feeding tube DAILY
ammonium lactate 12 % Cream
1 applic TOPICAL DAILY
bumetanide 2 mg Tablet
2 mg feeding tube SUTUTHSA
Rx Instructions:
AM every friday, , sat and sun
hydralazine 25 mg Tablet
25 mg feeding tube QID
cabergoline 0.5 mg Tablet
0.5 mg FEEDING TUBE Q4D
escitalopram oxalate 20 mg Tablet
20 mg feeding tube DAILY
guaifenesin 200 mg/5 mL Liquid
200 mg feeding tube BID
insulin glargine 100 unit/mL (3 mL) Insulin Pen
24 unit SC QPM
cholecalciferol (vitamin D3) 50 mcg (2,000 unit) Tablet
50 mcg feeding tube DAILY
ipratropium-albuterol 0.5 mg-3 mg(2.5 mg base)/3 mL Solution For Nebulization
3 ml INHALATION Q6H PRN (Reason: SOB)
levothyroxine 150 mcg Tablet
150 mcg feeding tube DAILY
metoprolol tartrate 25 mg Tablet
25 mg feeding tube BID
lidocaine HCl 4 % Adhesive Patch,Medicated
1 patch TOPICAL DAILY PRN (Reason: pain)
Rx Instructions:
left shoulder
multivitamin Tablet
1 tab FEEDING TUBE DAILY
primidone 50 mg Tablet
50 mg feeding tube HS
Novolin R FlexPen 100 unit/mL (3 mL) Insulin Pen
2 - 10 sliding scale dose SC DIRECTED
Novolin R FlexPen 100 unit/mL (3 mL) Insulin Pen
4 unit SC BID
Rx Instructions:
AC/HS
sevelamer carbonate 0.8 gram Powder In Packet
1.6 g feeding tube TID
Rx Instructions:
with meals
balsam rush-castor oil [Venelex] Ointment
1 applic TOPICAL DAILY
polyethylene glycol 3350 [Miralax] 17 gram Powder In Packet
17 g feeding tube DAILY
omeprazole 20 mg Capsule,Delayed Release(Dr/Ec)
20 mg feeding tube BID
Referrals:
Vinh Salamanca MD [Family Provider, Family Practice]
Interventions
Interventions:
*Risk Screen - Suicide Last Done: 06/06/25 13:22
*General Assessment Last Done: 06/06/25 13:22
*Neglect/Abuse Screening Last Done: 06/06/25 13:22
*ED- Fall Risk Assessment Last Done: 06/06/25 13:21
*ED COVID-19 Vaccine History Last Done: 06/06/25 13:21
ED- Cardiac Assessment Last Done: 06/06/25 13:23
ED- Pulmonary Assessment Last Done: 06/06/25 13:24
Discharge Date and Time
Print Language: UPPER SORBIAN
[2025-06-06 13:48] LABS: Hematocrit 36.8 % (39.0-52.0); Hemoglobin 10.9 g/dL (13.0-18.0); Mean Corp Hgb Conc. 29.6 g/dL (33.0-37.0); Mean Corpuscular Volume 95.8 fL (80.0-94.0); Platelet Count 280 10^3/uL (130-400); Red Cell Dist. Width 15.7 % (11.5-14.5)
[2025-06-06 13:50] LABS: B.E. -15.5 mmol/L; HCO3 16.5 mmol/L (21-28); O2 Saturation % 99.9 % (94-98); PCO2 67 mmHg (35-48); PO2 143 mmHg (83-108)
[2025-06-06 13:52] LABS: O2 Therapy RA
[2025-06-06 13:57] LABS: INR 1.31; PT 16.5 Sec (11.4-14.6)
[2025-06-06 13:58] LABS: APTT 43.1 Sec (23.4-35.0)
[2025-06-06 14:03] LABS: ALT (SGPT) 130 U/L (0-50); AST (SGOT) 159 U/L (17-59); Albumin 3.5 g/dl (3.5-5.0); Alkaline Phosphatase 223 U/L (38-126); Blood Urea Nitrogen 41 mg/dl (9-20); Calcium 9.5 mg/dl (8.4-10.2); Carbon Dioxide 20 mmol/L (22-30); Chloride 99 mmol/L (98-107); Glucose 284 mg/dl (70-99); Potassium 3.4 mmol/L (3.5-5.1); Sodium 132 mmol/L (135-145); Total Protein 6.1 g/dl (6.3-8.2); eGFR 27.62
[2025-06-06 14:08] LABS: Troponin I < 0.012 ng/ml
[2025-06-06 14:20] LABS: Nucleated Red Blood Cells % 0 % (-)
[2025-06-06] MEDS: ZOSYN 50 IV ×2 (14:20→22:24)
[2025-06-06] MEDS: VERSED 2 MG IV (15:07)
[2025-06-06] MEDS: VANCOCIN 530 MG IV (15:27)
[2025-06-06] MEDS: DIPRIVAN 100 IV ×2 (15:35→21:24)
--- NOTE | 2025-06-06 16:24 | W.CON.NEPH ---
Consultation
-
Date/Time Consultation Requested: 06/06/2025 4:00 PM
Date/Time Consultation Performed: 06/06/2025 4:25 PM
Requesting Provider: Dr. Armijo
Performing Provider: Dr. Rob
Reason for Consultation: ESRD
Medical History
-
Chief Complaint: ESRD
History of Present Illness:
This is a 74-year-old male with extensive past medical history including diagnosis of Guillain-Wright� syndrome, COPD, chronic respiratory failure on home O2, insulin-dependent diabetes, end-stage renal disease on hemodialysis Friday,
history of DVT and PE, CHF, dysphagia status post PEG tube who presents to the emergency department from [facility] s/p [facility] on dialysis. The patient states he has been on dialysis since September 2024 when he was originally admitted to [place] [facility]. He has been in numerous hospitals and at one time was in [place]. He has been intubated multiple times over the course of the past year. Nephrology was consulted for end-stage renal disease managment.
Past Medical History
Marielle Wright� syndrome, acute and chronic respiratory failure, anemia, COPD, CHF, dysphagia status post PEG tube, pulmonary embolism and DVT, insulin-dependent diabetes, hypertension, GERD, macular degeneration, ulcerative colitis, sick sinus
syndrome, ESRD on MWF at [facility]
Social History
Tobacco: Non-Smoker
Alcohol: None
Drug: None
Family History
Family History: Not Pertinent
Allergies / Home Medications
Allergy/AdvReac Type Severity Reaction Status Date / Time
Iodinated Contrast Media Allergy Unknown Verified 06/06/25 15:57
mesalamine Allergy Unknown Verified 06/06/25 15:57
Penicillins Allergy Unknown/childhood; Verified 06/06/25 15:57
tolerates
cephalosporins
Sulfa (Sulfonamide Allergy Unknown Verified 06/06/25 15:57
Antibiotics)
�Medication �Instructions �Recorded �Confirmed �Type
acetaminophen 325 mg tablet 325 mg feeding tube ONCE PRN pain, 05/13/25 06/06/25 History
fever
ammonium lactate 12 % topical cream 1 applic topical DAILY 05/13/25 06/06/25 History
ascorbic acid (vitamin C) 500 mg 500 mg feeding tube DAILY 05/13/25 06/06/25 History
tablet
aspirin 325 mg tablet 325 mg feeding tube DAILY 05/13/25 06/06/25 History
atorvastatin 40 mg tablet 40 mg feeding tube QPM 05/13/25 06/06/25 History
balsam rush-castor oil topical 1 applic topical DAILY dryness and 05/13/25 06/06/25 History
ointment (Venelex topical ointment) reddness
bumetanide 2 mg tablet 2 mg feeding tube SUTUTHSA 05/13/25 06/06/25 History
cabergoline 0.5 mg tablet 0.5 mg feeding tube Q4D pituitary 05/13/25 06/06/25 History
adenoma
cholecalciferol (vitamin D3) 50 50 mcg feeding tube DAILY 05/13/25 06/06/25 History
mcg (2,000 unit) tablet
escitalopram oxalate 20 mg tablet 20 mg feeding tube DAILY 05/13/25 06/06/25 History
guaifenesin 200 mg/5 mL oral liquid 200 mg feeding tube BID 05/13/25 06/06/25 History
hydralazine 25 mg tablet 25 mg feeding tube QID 05/13/25 06/06/25 History
insulin glargine 100 unit/mL (3 24 unit SC QPM 05/13/25 06/06/25 History
mL) subcutaneous pen
insulin regular human 100 unit/mL 2 - 10 sliding scale dose SC 05/13/25 06/06/25 History
(3 mL) subcutaneous pen (Novolin R DIRECTED
FlexPen)
insulin regular human 100 unit/mL 4 unit SC BID 05/13/25 06/06/25 History
(3 mL) subcutaneous pen (Novolin R
FlexPen)
ipratropium 0.5 mg-albuterol 3 mg 3 ml inhalation Q6H PRN SOB 05/13/25 06/06/25 History
(2.5 mg base)/3 mL nebulization
soln
levothyroxine 150 mcg tablet 150 mcg feeding tube DAILY 05/13/25 06/06/25 History
lidocaine HCl 4 % topical patch 1 patch topical DAILY PRN pain 05/13/25 06/06/25 History
metoprolol tartrate 25 mg tablet 25 mg feeding tube BID 05/13/25 06/06/25 History
multivitamin 1 tab feeding tube DAILY 05/13/25 06/06/25 History
primidone 50 mg tablet 50 mg feeding tube HS 05/13/25 06/06/25 History
sevelamer carbonate 0.8 gram oral 1.6 g feeding tube TID 05/13/25 06/06/25 History
powder packet
omeprazole 20 mg capsule,delayed 20 mg feeding tube BID 06/06/25 06/06/25 History
release
polyethylene glycol 3350 17 gram 17 g feeding tube DAILY 06/06/25 06/06/25 History
oral powder packet (Miralax)
Review of Systems
-
Unable to obtain full review of systems at this time due to: Patient Intubation
History Source: Patient
All other systems: Negative unless noted
Physical Exam
Vital Signs
Vital Signs
Temp Pulse Resp BP Pulse Ox
96.7 F L 67 18 129/50 94
06/06/25 13:28 06/06/25 16:00 06/06/25 16:00 06/06/25 16:00 06/06/25 16:00
Lab Results
06/06/25 13:32
06/06/25 13:32
WBC 26.2 10^3/uL (4.8-10.8) H 06/06/25 13:32
RBC 3.84 10^6/uL (4.70-6.10) L 06/06/25 13:32
Hgb 10.9 g/dL (13.0-18.0) L 06/06/25 13:32
Hct 36.8 % (39.0-52.0) L 06/06/25 13:32
Plt Count 280 10^3/uL (130-400) 06/06/25 13:32
Sodium 132 mmol/L (135-145) L 06/06/25 13:32
Potassium 3.4 mmol/L (3.5-5.1) L 06/06/25 13:32
Chloride 99 mmol/L (98-107) 06/06/25 13:32
Carbon Dioxide 20 mmol/L (22-30) L 06/06/25 13:32
BUN 41 mg/dl (9-20) H 06/06/25 13:32
Creatinine 2.4 mg/dL (0.7-1.3) H 06/06/25 13:32
eGFR 27.62 06/06/25 13:32
Glucose 284 mg/dl (70-99) H 06/06/25 13:32
Calcium 9.5 mg/dl (8.4-10.2) 06/06/25 13:32
Nnp-M-Sgwedgnmxhm Pept 5450 pg/ml 06/06/25 13:32
Albumin 3.5 g/dl (3.5-5.0) 06/06/25 13:32
Physical Exam
General: intubated .obese, chronically ill appearing
HEENT: ET tube down oropharyngeal airway, facial Symmetry, Neck Supple, Neck: Trachea Midline, No JVD and No Thyromegaly, no Bruits
Respiratory: Coarse to auscultation bilaterally with decreased breath sounds along left lung field
Cardiac: S1/S2 and Regular paced, left anterior chest wall pacemaker
Breast: Deferred by me
Tunneled right IJ catheter
Abdomen: Soft, Nontender,obese, Nondistended, decreased Bowel Sounds and No Hepatosplenomegaly,PEG
Rectal: Deferred by Provider
Genito-urinary: No Costovertebral Tenderness
Extremities: No Clubbing, No Cyanosis and Noted Edema right> left
Skin: Right lower extremity pretibial skin excoriation and plus edema
Neuro: Intubated and sedated
Hematologic/Lymphatic: No Cervical Lymphadenopathy, No Submandibular Lymphadenopathy and No Supraclavicular Lymphadenopathy
Psych: Intubated
Vascular: plus 1 pedal and radial pulses
Vascular Access: CVC (Right anterior chest wall)
Data Reviewed
-
Radiology: Image Personally Visualized and interpreted (Chest x-ray notes total right IJ catheter left anterior chest wall pacemaker no overt infiltrate or congestive heart failure pattern)
Medical Tests (Nuc Med, Echo etc): Other (EKG report reviewed atrial paced with septal and inferior infarct pattern and lateral ischemic pattern at 60 bpm)
Labs: Labs Reviewed by me (BMP CBC, ABG)
Old Records: Reviewed (Reviewed nephrology consult from date 05/13/2025 when patient presented with increasing shortness of breath due to underlying pneumonia)
Assessment/Plan
-
Impression:
Status post PEA event on dialysis today at [place]
Leukocytosis with suspected aspiration event
ESRD Friday and Friday
Profound lactic acidosis
Vent dependent respiratory failure following PEA event
Hx of Complicated pneumonia -on pneumonia with possible large parapneumonic effusion, non-septic (lung atelectasis)/ 05/20
Eric Wright�
Insulin-dependent diabetes
PEG
CHF
Hyperphosphatemia
CAD
Hypothyroidism
Plan:
No acute hemodialysis indication
Respiratory acidosis component should improve with intubation
We can augment with bicarbonate IV fluids if required for metabolic acidosis
Next dialysis will be planned tomorrow,as patient completed treatment today labwork and volume status otherwise stable
Sodium bicarbonate drip can be provided if lactic acidosis persists after repeat ABG this evening (discussed with ICU attending)
Patient is critically ill and currently intubated following PEA event on dialysis at [place]
Can maintain sevelamer via PEG once feedings resumed
Okay for CTA of chest to assess for pulmonary embolism as patient is ESRD, I reassured family
Patient critically ill with profound metabolic acidosis and intubation following PEA event on dialysis
45 minutes critical care time spent with patient
Total Time Spent with Patient (in minutes): 45
--- NOTE | 2025-06-06 16:37 | HPS.HSE ---
Addendum entered and electronically signed by Francisco Armijo MD 06/06/25 16:51:
agreeable to CT PE now. Order pre contrast prep.
Original Note:
Family Physician
-
Family Physician: Vinh Salamanca MD
Chief Complaint
-
cardiac arrest
History of Present Illness
74-year-old male past medical history of Pseudomonas/MSSA pneumonia, chronic respiratory failure on 2 L baseline, ESRD on hemodialysis Friday, Friday, Friday, diabetes, PE/DVT, Guillain-Wright� status post PEG tube, CHF, hypothyroidism, COPD,
history of PE/DVT, chronic dysphagia, macular degeneration, hypertension, pituitary adenoma, presenting from [facility] for cardiac arrest. He had 45 minutes of dialysis left today when he underwent cardiac arrest and required intubation.
He felt unwell yesterday. He has been having chronic dry cough. Did not have shortness of breath. Denied chest pain yesterday. His lower extremity edema is at baseline.
He recently had left upper extremity DVT and is not sure if he is still on anticoagulation.
Medical History
Past Medical History
Past Medical History: Reports Other (Pseudomonas/MSSA pneumonia, chronic respiratory failure on 2 L baseline, ESRD on hemodialysis Friday, Friday, Friday, diabetes, PE/DVT, Guillain-Wright� status post PEG tube, CHF, hypothyroidism, COPD, history
of PE/DVT, chronic dysphagia, macular degeneration, hypertension, pituitary adenoma)
Past Surgical History: Reports None
Social History
Tobacco: Non-smoker
Alcohol: None
Drug: None
Family History
Family History: Not pertinent
Allergies / Home Medications
Allergies reflects when Allergies were last updated in [employer].
Home Medications with original date entered in [employer]
Allergy/Medication List:
Allergies
Allergy/AdvReac Type Severity Reaction Status Date / Time
Iodinated Contrast Media Allergy Unknown Verified 06/06/25 15:57
mesalamine Allergy Unknown Verified 06/06/25 15:57
Penicillins Allergy Unknown/childhood; Verified 06/06/25 15:57
tolerates
cephalosporins
Sulfa (Sulfonamide Allergy Unknown Verified 06/06/25 15:57
Antibiotics)
Home Medications
acetaminophen 325 mg tablet 325 mg feeding tube ONCE PRN pain, fever 05/13/25
ammonium lactate 12 % topical cream 1 applic topical DAILY 05/13/25
ascorbic acid (vitamin C) 500 mg tablet 500 mg feeding tube DAILY 05/13/25
aspirin 325 mg tablet 325 mg feeding tube DAILY 05/13/25
atorvastatin 40 mg tablet 40 mg feeding tube QPM 05/13/25
balsam rush-castor oil topical ointment (Venelex topical ointment) 1 applic topical DAILY dryness and reddness 05/13/25
bumetanide 2 mg tablet 2 mg feeding tube SUTUTHSA 05/13/25
cabergoline 0.5 mg tablet 0.5 mg feeding tube Q4D pituitary adenoma 05/13/25
cholecalciferol (vitamin D3) 50 mcg (2,000 unit) tablet 50 mcg feeding tube DAILY 05/13/25
escitalopram oxalate 20 mg tablet 20 mg feeding tube DAILY 05/13/25
guaifenesin 200 mg/5 mL oral liquid 200 mg feeding tube BID 05/13/25
hydralazine 25 mg tablet 25 mg feeding tube QID 05/13/25
insulin glargine 100 unit/mL (3 mL) subcutaneous pen 24 unit SC QPM 05/13/25
insulin regular human 100 unit/mL (3 mL) subcutaneous pen (Novolin R FlexPen) 2 - 10 sliding scale dose SC DIRECTED 05/13/25
insulin regular human 100 unit/mL (3 mL) subcutaneous pen (Novolin R FlexPen) 4 unit SC BID 05/13/25
ipratropium 0.5 mg-albuterol 3 mg (2.5 mg base)/3 mL nebulization soln 3 ml inhalation Q6H PRN SOB 05/13/25
levothyroxine 150 mcg tablet 150 mcg feeding tube DAILY 05/13/25
lidocaine HCl 4 % topical patch 1 patch topical DAILY PRN pain 05/13/25
metoprolol tartrate 25 mg tablet 25 mg feeding tube BID 05/13/25
multivitamin 1 tab feeding tube DAILY 05/13/25
primidone 50 mg tablet 50 mg feeding tube HS 05/13/25
sevelamer carbonate 0.8 gram oral powder packet 1.6 g feeding tube TID 05/13/25
omeprazole 20 mg capsule,delayed release 20 mg feeding tube BID 06/06/25
polyethylene glycol 3350 17 gram oral powder packet (Miralax) 17 g feeding tube DAILY 06/06/25
Review of Systems
-
Constitutional: Reports No Symptoms
EENT: Reports No Symptoms
Respiratory: Reports No Symptoms
Cardiac: Reports No Symptoms
Abdomen/GI: Reports No Symptoms
: Reports No Symptoms
Musculoskeletal: Reports No Symptoms
Skin: Reports No Symptoms
Neurological: Reports No Symptoms
Endocrine: Reports No Symptoms
Hematologic/Lymphatic: Reports No Symptoms
Psych: Reports No Symptoms
Physical Exam
Vital Signs
Vital Signs
Temp Pulse Resp BP Pulse Ox
96.7 F L 64 18 132/48 94
06/06/25 13:28 06/06/25 16:15 06/06/25 16:15 06/06/25 16:15 06/06/25 16:15
Physical Exam
General: Well Developed, Well Nourished and No Apparent Distress
HEENT: NormoCephalic, Moist mucous membranes and Atraumatic
Respiratory: Clear
Cardiac: S1/S2 and Regular Rhythm; No Murmur or Rub
GI: Soft, Non Tender, Non Distended and Normal Bowel Sounds; No Organomegaly
Rectal: Deferred by Provider
Musculoskeletal: No Clubbing, No Cyanosis and No Edema
Skin: No Rash
Neuro: Nonfocal/grossly intact
Laboratory Results
-
08/11/25 13:32
06/06/25 13:32
Laboratory Results
PT 16.5 Sec (11.4-14.6) H 06/06/25 13:32
INR 1.31 06/06/25 13:32
APTT 43.1 Sec (23.4-35.0) H 06/06/25 13:32
pH 7.00 (7.35-7.45) L* 06/06/25 13:34
pCO2 67 mmHg (35-48) H 06/06/25 13:34
pO2 143 mmHg (83-108) H 06/06/25 13:34
HCO3 16.5 mmol/L (21-28) L 06/06/25 13:34
Lactic Acid 8.0 mmol/L (0.7-2.0) H* 06/06/25 13:32
Total Bilirubin 0.4 mg/dl (0.2-1.3) 06/06/25 13:32
AST 159 U/L (17-59) H 06/06/25 13:32
ALT 130 U/L (0-50) H 06/06/25 13:32
Alkaline Phosphatase 223 U/L (38-126) H 06/06/25 13:32
Troponin I < 0.012 ng/ml 06/06/25 13:32
Data Reviewed
-
Lab Data: Labs Reviewed by me
Old Records: Reviewed
Impression/Plan
-
IMPRESSION:
PLAN:
# Cardiac arrest/PEA arrest causes include hypoxemia from chronic CIDP/Guillain-Wright� versus pneumonia versus pulmonary embolism
- Leukocytosis of 26
- Chest x-ray shows hazy opacities in the left lung, more confluent in the left lung base with obscuration of the hemidiaphragm which represent atelectasis versus pleural fluid
-CT head shows small chronic infarct in the left frontal lobe
-Wanted to check CT PE given history of DVT/PE however adamant against this due to rash contrast allergy and refuses pretreatment
-EKG shows atrial paced rhythm with prolonged AV conduction.
- IV fluids
-Hold Bumex
- Vancomycin/Zosyn
- Trend lactate
-On propofol
- Appeals Officer consulted
# Hypokalemia
- Do not replete because ESRD patient
History of Pseudomonas/MSSA pneumonia
COPD/ Chronic respiratory failure on 2 L baseline
ESRD on hemodialysis Friday, Friday, Friday
-mostly completed diaysis today
- Nephrology consulted
- Continue sevelamer
Essential hypertension
-continue hydralazine
History of pacemaker
- Interrogate pacemaker
Type 2 diabetes
- Reduce Lantus from 24 to 12 units
- Insulin sliding scale
History of PE/DVT
Guillain-Wright� status post PEG tube
History of CHF
- Continue metoprolol
Hypothyroidism
- Continue levothyroxine
Pituitary adenoma
- Continue cabergoline
Anxiety/depression
- Hold Lexapro
Full code
DVT prophylaxis�heparin
N.p.o.
--- NOTE | 2025-06-06 16:57 | CON.INTV ---
Consultation
Consultation Request
Date/Time Consultation Requested: 06/06/2025
Date/Time Consultation Performed: 06/06/2025
Medical History
-
Chief Complaint: Cardiac arrest
History of Present Illness:
Patient is a 74-year-old gentleman with complex past medical history including chronic hypoxic and hypercapnic respiratory failure in the setting of neuromuscular weakness, end-stage renal disease on hemodialysis, on nightly BiPAP for suspected
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 45 minutes prior to dialysis finishing patient developed cardiac arrest. As per EMS records there were no preceding symptoms or distress noted. CPR was
started right away and EMS was called. 10 minutes into CPR EMS arrived and patient was noted to be in PEA with paced rhythm on the monitor without pulse. Patient received 3 doses of epi and CPR was continued for a total of 22 minutes following
which ROSC was achieved. Patient was intubated in the field and brought to the emergency room. Initial blood gas in the emergency room showed a pH of 7 with lactate up to 8 and hypercapnia. Patient started to move around in the emergency room,
briefly opened eyes, received as needed benzodiazepine and later propofol infusion. In view of cardiac arrest, patient is getting admitted to ICU and [employer] radio operator consultation was requested for further input.
Past Medical History
Past Medical History: Reports Other (Pseudomonas/MSSA pneumonia, chronic respiratory failure on 2 L baseline, ESRD on hemodialysis Friday, Friday, Friday, diabetes, PE/DVT, Guillain-Wright� status post PEG tube, CHF, hypothyroidism, COPD, history
of PE/DVT, chronic dysphagia, macular degeneration, hypertension, pituitary adenoma)
Past Surgical History: Reports None
Social History
Tobacco: Non-smoker
Alcohol: None
Drug: None
Family History
Family History: Not pertinent
Allergies / Home Medications
Allergies reflects when Allergies were last updated in [employer].
Home Medications with original date entered in [employer]
Allergies / Home Medications
Allergies
Allergy/AdvReac Type Severity Reaction Status Date / Time
Iodinated Contrast Media Allergy Unknown Verified 06/06/25 15:57
mesalamine Allergy Unknown Verified 06/06/25 15:57
Penicillins Allergy Unknown/childhood; Verified 06/06/25 15:57
tolerates
cephalosporins
Sulfa (Sulfonamide Allergy Unknown Verified 06/06/25 15:57
Antibiotics)
Home Medications
�Medication �Instructions �Recorded �Confirmed �Last Taken �Type
acetaminophen 325 mg tablet 325 mg feeding tube ONCE PRN pain, 05/13/25 06/06/25 Unknown History
fever
ammonium lactate 12 % topical cream 1 applic topical DAILY 05/13/25 06/06/25 Unknown History
ascorbic acid (vitamin C) 500 mg 500 mg feeding tube DAILY 05/13/25 06/06/25 Unknown History
tablet
aspirin 325 mg tablet 325 mg feeding tube DAILY 05/13/25 06/06/25 Unknown History
atorvastatin 40 mg tablet 40 mg feeding tube QPM 05/13/25 06/06/25 Unknown History
balsam rush-castor oil topical 1 applic topical DAILY dryness and 05/13/25 06/06/25 Unknown History
ointment (Venelex topical ointment) reddness
bumetanide 2 mg tablet 2 mg feeding tube SUTUTHSA 05/13/25 06/06/25 Unknown History
cabergoline 0.5 mg tablet 0.5 mg feeding tube Q4D pituitary 05/13/25 06/06/25 Unknown History
adenoma
cholecalciferol (vitamin D3) 50 50 mcg feeding tube DAILY 05/13/25 06/06/25 Unknown History
mcg (2,000 unit) tablet
escitalopram oxalate 20 mg tablet 20 mg feeding tube DAILY 05/13/25 06/06/25 Unknown History
guaifenesin 200 mg/5 mL oral liquid 200 mg feeding tube BID 05/13/25 06/06/25 Unknown History
hydralazine 25 mg tablet 25 mg feeding tube QID 05/13/25 06/06/25 Unknown History
insulin glargine 100 unit/mL (3 24 unit SC QPM 05/13/25 06/06/25 Unknown History
mL) subcutaneous pen
insulin regular human 100 unit/mL 2 - 10 sliding scale dose SC 05/13/25 06/06/25 Unknown History
(3 mL) subcutaneous pen (Novolin R DIRECTED
FlexPen)
insulin regular human 100 unit/mL 4 unit SC BID 05/13/25 06/06/25 Unknown History
(3 mL) subcutaneous pen (Novolin R
FlexPen)
ipratropium 0.5 mg-albuterol 3 mg 3 ml inhalation Q6H PRN SOB 05/13/25 06/06/25 Unknown History
(2.5 mg base)/3 mL nebulization
soln
levothyroxine 150 mcg tablet 150 mcg feeding tube DAILY 05/13/25 06/06/25 Unknown History
lidocaine HCl 4 % topical patch 1 patch topical DAILY PRN pain 05/13/25 06/06/25 Unknown History
metoprolol tartrate 25 mg tablet 25 mg feeding tube BID 05/13/25 06/06/25 Unknown History
multivitamin 1 tab feeding tube DAILY 05/13/25 06/06/25 Unknown History
primidone 50 mg tablet 50 mg feeding tube HS 05/13/25 06/06/25 Unknown History
sevelamer carbonate 0.8 gram oral 1.6 g feeding tube TID 05/13/25 06/06/25 Unknown History
powder packet
omeprazole 20 mg capsule,delayed 20 mg feeding tube BID 06/06/25 06/06/25 Unknown History
release
polyethylene glycol 3350 17 gram 17 g feeding tube DAILY 06/06/25 06/06/25 Unknown History
oral powder packet (Miralax)
Review of Systems
-
Unable to Obtain full review of systems at this time due to: Patient Intubation
Vitals / Labs / Diagnostic Testing
Vital Signs
Temp Pulse Resp BP Pulse Ox
94.5 F L 61 25 117/42 94
06/06/25 16:53 06/06/25 16:53 06/06/25 16:53 06/06/25 16:53 06/06/25 16:53
Lab Data
06/06/25 13:32
06/06/25 13:32
Laboratory Results
06/06/25 06/06/25
13:32 13:34
PT 16.5 H
INR 1.31
APTT 43.1 H
pH 7.00 L*
pCO2 67 H
pO2 143 H
HCO3 16.5 L
O2 Delivery Level Ra
Diagnostic Testing:
Physical Exam
-
HEENT: Normocephalic
Cardiovascular: S1/S2
Respiratory: Rhonchi (Mild left lower lobe rhonchi noted on exam, no wheezing)
GI: Soft and Non Distended
Neurology: Other (Minimally responsive, currently on sedation with propofol)
Skin: Warm
General: Comfortable
Assessment
-
#1. Cardiac arrest.
- Witnessed, during dialysis, no preceding symptoms reported.
- Per EMS records, CPR started at 1240, ACLS initiated at 1250, epi x 3 given, ROSC achieved at 1302. Total time under CPR appears to be 22 minutes. Rhythm noted to be paced/PEA.
- ? Etiology. With patient's known neuromuscular weakness, hypercapnic respiratory failure could certainly have contributed, patient also at high aspiration risk. Cardiac etiology also in differential diagnosis. EKG without acute ischemic
changes and the first troponin is negative. Pulmonary embolism is also in differential diagnosis. CT head is negative.
- Patient had GCS 3 on arrival, subsequently patient briefly opened eyes and was agitated, target normothermia
- Patient breathing above the vent, quivering of chin noted, will proceed with EEG to evaluate for any nonconvulsive seizures
- Discussed with patient's at bedside, plan for CT PE protocol after premedication for contrast allergy to evaluate for any underlying pulmonary embolism
- First ABG consistent with hypercapnia with acidosis, respiratory rate on ventilator increased to 25, tidal volume 500, follow-up ABG in 45 minutes. Will adjust ventilation as needed
- Continue broad-spectrum antibiotics vancomycin and Zosyn initiated in the emergency room. Chest x-ray reviewed, known left lower pneumonia, radiologically appears to be improving. Await CT for further evaluation.
- Patient at risk of anoxic encephalopathy
#2. Acute on chronic hypoxic and hypercapnic respiratory failure.
- At baseline patient is on home oxygen at 2 L and also has chronic compensated hypercapnia and due to neuromuscular weakness on nightly BiPAP therapy
- In the setting of cardiac arrest. Patient was intubated in the field by EMS.
- Known history of neuromuscular weakness with chronic compensated hypercapnia, initial ABG 7.0/67, consistent with acute on chronic respiratory acidosis as well as metabolic acidosis.
- Change ventilator sampling to volume assist-control, 500/25/40%/5. Follow-up ABG in 45 minutes and adjust accordingly
- Continue broad-spectrum antibiotics for concern for pneumonia
#3. Lactic acidosis.
- Lactate elevated at 8, as a result of cardiac arrest. Blood gas 7.0/67, suggestive of mixed metabolic and respiratory acidosis
- Continue hyperventilation, pressors as needed, currently MAP above 65
- Follow-up ABG in 45 minutes
- Low threshold to initiate bicarb supplementation if pH less than 7.2
- Patient already completed hemodialysis today and currently does not appear to be volume overloaded, serum potassium rather somewhat low at 3.4
- Will consider renal replacement therapy if patient stays persistently acidotic despite hyperventilation and bicarb supplementation
#4. ESRD on HD
- Nephrology service on case.
#5. 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
- NIF testing -25 to -30, very weak cough with poor expectoration of secretions during last admission
- At baseline has chronic compensated hypercapnia suggestive of underlying hypoventilation
- Patient has been on BiPAP nightly
- Prior h/o Tracheostomy earlier this year
- This is patient's fourth intubation during this year, with underlying neuromuscular weakness and now cardiac arrest, high likelihood of patient requiring long-term ventilatory support
#6. Prior h/o DVT/PE
- Has not been on anticoagulation currently
- Will initiate heparin empirically and await CT PE
#7. H/o LLL pneumonia.
- Patient has history of left lung collapse due to poor clearance of thick mucus requiring bronchoscopy. Cultures grew MSSA and Pseudomonas and patient was treated with antibiotics.
- Chest x-ray appears to be rather improved compared to last imaging. Await CT chest, continue broad-spectrum antibiotics for now
- Aspiration pneumonia also a concern, patient is currently fed via PEG tube and is NPO.
- Strict n.p.o. for now, keep head end elevated
Other medical diagnoses:
- Insulin-dependent diabetes mellitus
- Chronic dysphagia, currently on tube feeding via PEG tube
- Hypothyroidism
- Hypertension
- Macular degeneration
- S/p pacemaker placement. Pacer interrogation for further evaluation.
- Pituitary adenoma
-
Discussed with nephrology service. Updated patient's at bedside.
Critical Care time 65 mins -- The patient is admitted for acute critical illness for the treatment of vital organ failure and/or prevention of further life-threatening conditions. Total care includes time spent in review of history, physical exam,
medications, hemodynamic/ventilator parameters, laboratory data, imaging and discussion with house staff, pharmacy, respiratory therapy, otr driver, and nursing.
Data:
CT Head 05/2025: Ill-defined low signal intensity in the central aspect of the pili, which could be artifactual or secondary to age-indeterminate ischemia.
Chronic senescent changes.
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
Slight blurring of the karimi-white matter differentiation may reflect the early changes of hypoxic ischemic encephalopathy in the setting of cardiac arrest. Continued imaging follow-up can be performed as clinically indicated.
CXR 05/2025: Lines and tubes, as above.
Hazy opacities within the left lung, more confluent on the left lung base with obscuration of the hemidiaphragm. Findings again may represent a combination of atelectasis and pleural fluid, though improved compared to earlier recent chest x-rays.
[2025-06-06 17:58] LABS: B.E. -7.2 mmol/L; HCO3 19.3 mmol/L (21-28); O2 Saturation % 99.7 % (94-98); PCO2 42 mmHg (35-48); PO2 131 mmHg (83-108)
[2025-06-06] MEDS: NSS 1000 IV (18:30)
[2025-06-06 18:39] LABS: Hematocrit 35.2 % (39.0-52.0); Hemoglobin 10.8 g/dL (13.0-18.0); Mean Corp Hgb Conc. 30.7 g/dL (33.0-37.0); Mean Corpuscular Volume 91.7 fL (80.0-94.0); Platelet Count 289 10^3/uL (130-400); Red Cell Dist. Width 15.9 % (11.5-14.5)
--- NOTE | 2025-06-06 18:43 | PHA.VAN.IN ---
Addendum entered and electronically signed by Sunita Ramos, [facility] 06/06/25 18:48:
correction: monitoring pre-HD level 06/07 AM
Original Note:
Assessment
- Assessment
Renal Function: Patient has ESRD, on chronic Hemodialysis
Hemodialysis Schedule: MWF (next HD session planned for tomorrow Thursday 06/07 per nephrology)
Minimum Temperature: 94.5 F core 06/06 @ 1653
Concomitant Antimicrobials: piperacillin/tazobactam
Plan
- Plan
Initial / Loading Dose: vanc 1500mg administered @ 1527
Maintenance Regimen: dosing by level
Monitoring: pre-HD level 06/06 AM
MRSA Screen: Ordered per protocol
Pharmacokinetics Vancomycin I
- -
Patient Age: 74
Patient Sex: Female
Vancomycin Day #: 1
Indication: Pulmonary/Respiratory
Requesting Provider: Dr. Armijo
Pertinent Antimicrobial Allergies:
penicillin - unknown/childhood
sulfa - unknown
Height / Weight:
Height 6 ft
Actual Weight 111 kg
Pertinent Past Medical History: COPD on chronic O2, hx GBS, ESRD-HD
- Vital Signs / Lab Results
Temp Pulse Resp BP Pulse Ox
95.2 F L 68 0 132/58 97
06/06/25 17:16 06/06/25 18:30 06/06/25 18:30 06/06/25 18:30 06/06/25 18:30
Lab Results - Hematology
06/06/25 06/06/25
13:32 18:21
WBC 26.2 H 38.0 H
Lab Results - Chemistry
06/06/25
13:32
BUN 41 H
Creatinine 2.4 H
Albumin 3.5
06/06/25
13:32
Lactic Acid 8.0 H*
[2025-06-06 18:44] LABS: APTT 32.4 Sec (23.4-35.0)
[2025-06-06 18:47] LABS: Triglycerides 180 mg/dl (10-149)
--- NOTE | 2025-06-06 19:00 | PTCARENOTE ---
Pt arrived to ICU from ER s/p PEA cardiac arrest. Pt 100% A-paced at rate of 66 BP 130/54. IO access site removed by Renetta FLORES RN. R lower leg drg dry and intact. L arm sl swollen, limb alert on. Pt arrived with propofol at 20 mcg/kg/min via R
wrist int. NSS started at 100 ml/hr via R upper arm int. Pt orally intubated with 7.5 ETT, settings at AC 25, TV 500, peep 5 and 70%, ABG drawn by Dr Olivarez, results reviewed and pt to stay on present settings, but can wean the fio2 down as
tolerates, keeping sat >/= 92%. Pt with inspiratory wheezes noted and exp rhonchi. Pt suctioned for mod amt sevilla secretions. Skin wound assessment noted in chart worklist. Pt occ will open eyes, but does not focus or follow any commands. Pupils are 3
mm bilat and react sluggishly to light. Bilat wrist restraints on for safety. Pt with PEG tube in placed, capped. Pt cleaned for sm soft brown BM on arrival. Temp sensing fraser in place, 6 ml of yellow urine noted. Complete CHG bath given. Trop,
CBC, PTT, lactic acid, and triglycerides drawn and sent to lab. Pt's family to see patient in to see, and were updated.
[2025-06-06 19:02] LABS: Troponin I 0.208 ng/ml
[2025-06-06] MEDS: HEPARIN 25000 UNITS/250 ML IV (19:31)
[2025-06-06] MEDS: SUBLIMAZE 100 IV (19:33)
[2025-06-06] MEDS: HEPARIN 8900 UNITS IV (19:33)
[2025-06-06] MEDS: NOVOLIN R INSULIN INFUSION 100 IV (20:03)
[2025-06-06] MEDS: NOVOLIN R 100 UNITS IV (20:06)
[2025-06-06] MEDS: NSS (PRESERVATIVE FREE) 10 ML IV (20:16)
[2025-06-06 20:17] LABS: Glucose - Point of Care 289 mg/dl (70-99)
[2025-06-06] MEDS: LIPITOR 40 MG TUBE (20:17)
[2025-06-06] MEDS: LOPRESSOR 25 MG TUBE (20:17)
[2025-06-06] MEDS: PROTONIX IV 40 MG IV (20:17)
[2025-06-06] MEDS: BENADRYL 50 MG IV (20:45)
[2025-06-06] MEDS: SOLU-CORTEF 200 MG IV (20:45)
--- NOTE | 2025-06-06 21:09 | PTCARENOTE ---
Received pt from previous RN. Pt is intubated/sedated, pupils sluggish 2, unresponsive. Chin tremors. EEG with 0% seizure burden (see worklist). Restraints in place. NSR w/ 1st degree, apaced. ETT #7.5 25 at the lip. AC 25/500/70%/5, O2 sat 95%,
lungs coarse/rhonchi. PEG in place. Incont of stool. Guerra in place, milky urine, minimal urine output, ICU VB NET DEVELOPER notified. Prop and NS gtts. Started Fent, heparin, insulin and levo gtt (see worklist and MAR). Updated family with plan of care. Safe
environment maintained.
[2025-06-06 21:13] LABS: Glucose - Point of Care 294 mg/dl (70-99)
[2025-06-06] MEDS: LEVOPHED 250 IV (21:24)
[2025-06-06 22:27] LABS: Glucose - Point of Care 266 mg/dl (70-99)
--- NOTE | 2025-06-06 22:50 | PTCARENOTE ---
Transport pt to CT and back. No events took place.
[2025-06-06] MEDS: MYSOLINE 50 MG TUBE (23:07)
--- NOTE | 2025-06-06 23:10 | W.PN.UPDATE ---
Update Note
Progress Note Update
Procedure Note: Arterial Line�
� Right Wrist Arrow 20 (12/28)�
Diagnosis:��S/P cardiac arrest//possible aspiration
IV Line Comments: Uneventful Procedure�
Shawn's test completed pre-procedure: Yes�
A-Line Comments: Sterile technique as per standard protocol, Ultrasound guided insertion�
Functioning A-line in situ: Yes�
A-line Insertion Start Time:��5
A-line in at:��2300
[2025-06-06 23:16] LABS: Glucose - Point of Care 248 mg/dl (70-99)
[2025-06-06 23:23] LABS: B.E. -8.0 mmol/L; HCO3 17.7 mmol/L (21-28); O2 Saturation % 98.8 % (94-98); PCO2 36 mmHg (35-48); PO2 115 mmHg (83-108); Potassium 3.1 mMOL/L (3.5-5.1); Sodium 129 mMOL/L (136-145)
[2025-06-06 23:49] LABS: Triglycerides 100 mg/dl (10-149)
[2025-06-06] MEDS: KCL 160 MEQ IV (23:49)
[2025-06-06 23:50] LABS: Blood Urea Nitrogen 53 mg/dl (9-20); Calcium 9.5 mg/dl (8.4-10.2); Carbon Dioxide 16 mmol/L (22-30); Chloride 102 mmol/L (98-107); Estimated Creatinine Clearance 32 ml/min; Glucose 231 mg/dl (70-99); Potassium 3.3 mmol/L (3.5-5.1); Sodium 129 mmol/L (135-145); eGFR 25.09
[2025-06-06] MEDS: SODIUM BICARBONATE 1150 MEQ IV (23:53)
[2025-06-07 00:07] LABS: Glucose - Point of Care 235 mg/dl (70-99)
--- NOTE | 2025-06-07 00:12 | PTCARENOTE ---
Systems reviewed, no new changes in assessment. ICU STAFF SONOGRAPHER placed jesse, jesse zeroed and transduced. Fent gtt turned off. KCl given. CHG bath, fraser care and mouth care provided. Restraints in place. Safe environment maintained.
[2025-06-07 00:24] LABS: Troponin I 0.404 ng/ml
[2025-06-07 00:39] VITALS: BMI 33.2
[2025-06-07 01:09] LABS: Glucose - Point of Care 198 mg/dl (70-99)
[2025-06-07 01:57] LABS: APTT > 200 Sec (23.4-35.0)
[2025-06-07 02:10] LABS: Glucose - Point of Care 164 mg/dl (70-99)
[2025-06-07 02:31] VITALS: BMI 32.1
[2025-06-07 03:11] LABS: Glucose - Point of Care 153 mg/dl (70-99)
[2025-06-07 04:02] LABS: Hematocrit 33.4 % (39.0-52.0); Hemoglobin 11.0 g/dL (13.0-18.0); Mean Corp Hgb Conc. 32.9 g/dL (33.0-37.0); Mean Corpuscular Volume 87.4 fL (80.0-94.0); Platelet Count 293 10^3/uL (130-400); Red Cell Dist. Width 15.4 % (11.5-14.5)
[2025-06-07 04:07] LABS: Glucose - Point of Care 134 mg/dl (70-99)
--- NOTE | 2025-06-07 04:09 | PTCARENOTE ---
Systems reviewed, no new changes in assessment. AM labs provided. Gtts maintained (see worklist). Restraints in place. Safe environment maintained.
[2025-06-07] MEDS: NOVOLIN R INSULIN INFUSION 100 IV (04:41)
[2025-06-07 04:43] LABS: ALT (SGPT) 114 U/L (0-50); AST (SGOT) 96 U/L (17-59); Albumin 3.2 g/dl (3.5-5.0); Alkaline Phosphatase 190 U/L (38-126); Blood Urea Nitrogen 53 mg/dl (9-20); Calcium 9.0 mg/dl (8.4-10.2); Carbon Dioxide 19 mmol/L (22-30); Chloride 104 mmol/L (98-107); Estimated Creatinine Clearance 32 ml/min; Glucose 147 mg/dl (70-99); Magnesium 2.1 mg/dl (1.6-2.3); Potassium 3.9 mmol/L (3.5-5.1); Sodium 132 mmol/L (135-145); Total Protein 5.7 g/dl (6.3-8.2); eGFR 25.09
[2025-06-07 04:43] LABS: B.E. -4.4 mmol/L; HCO3 21.0 mmol/L (21-28); O2 Saturation % 99.1 % (94-98); PCO2 39 mmHg (35-48); PO2 102 mmHg (83-108)
[2025-06-07] MEDS: DIPRIVAN 100 IV (05:02)
[2025-06-07 05:04] LABS: Glucose - Point of Care 128 mg/dl (70-99)
[2025-06-07] MEDS: ZOSYN 50 IV ×3 (05:08→21:58)
[2025-06-07] MEDS: SYNTHROID 150 MCG TUBE (05:09)
[2025-06-07 05:21] LABS: Troponin I 0.343 ng/ml
[2025-06-07 06:07] LABS: Glucose - Point of Care 100 mg/dl (70-99)
[2025-06-07 06:27] LABS: Nucleated Red Blood Cells % 0 % (-)
[2025-06-07 07:10] LABS: Glucose - Point of Care 110 mg/dl (70-99)
[2025-06-07] MEDS: NOVOLOG FLEXPEN SC ×3 (07:18→17:04)
[2025-06-07] MEDS: DUONEB 3 ML INH ×4 (07:22→20:34)
[2025-06-07] MEDS: DUONEB INH (07:37)
--- NOTE | 2025-06-07 07:58 | W.PN.NEPH.PH ---
Today's Communication / Plan
-
Patient will undergo dialysis tomorrow
Okay to discontinue IV fluids once current sodium HCO3 bag completed
Maintaining intubation
Assessment/Plan
-
Impression:
Status post PEA event on dialysis today at [facility]
Leukocytosis with suspected aspiration event
ESRD Friday and Friday
Profound lactic acidosis
Vent dependent respiratory failure following PEA event
Hx of Complicated pneumonia -on pneumonia with possible large parapneumonic effusion, non-septic (lung atelectasis)/ 05/20
Guillian Wright�
Insulin-dependent diabetes
PEG
CHF
Hyperphosphatemia
CAD
Hypothyroidism
Plan:
Acidemia stable and improving with ventilation and sodium HCO3 IV fluids,no acute hemodialysis indication for today
Dialysis will be performed tomorrow and orders will be provided
We can discontinue further IV fluids once current bag of sodium bicarbonate is exhausted as acidosis stabilizing
Now off pressor support with norepinephrine as he has hemodynamic stability
Zosyn renally dosed for ESRD
Patient appears to have suffered an anoxic event given severely compromised neurological status off propofol, no corneal reflex
Patient is critically ill and currently intubated following PEA event on dialysis at [facility]
Can maintain sevelamer via PEG once feedings resumed
s/p CTA of chest to assess for pulmonary embolism : negative
Patient critically ill with profound metabolic acidosis and intubation following PEA event on dialysis
35 minutes critical care time spent with patient
-
-
Date of Service: June 07, 2025
CC / HPI / ROS
-
Chief Complaint:
ESRD
History of Present Illness:
ESRD Friday
Hemodynamically stable off pressors
Remains intubated and nonresponsive off sedation (Fio2 at 40%)
Remains on heparin drip
White blood cell count up to 59
Review of Systems:
Guerra catheter
Intubated and nonresponsive off sedation
No fevers
Labs
-
Labs:
WBC 59.0 10^3/uL (4.8-10.8) H* 06/07/25 03:36
RBC 3.82 10^6/uL (4.70-6.10) L 06/07/25 03:36
Hgb 11.0 g/dL (13.0-18.0) L 06/07/25 03:36
Hct 33.4 % (39.0-52.0) L 06/07/25 03:36
Plt Count 293 10^3/uL (130-400) 06/07/25 03:36
Sodium 132 mmol/L (135-145) L 06/07/25 03:36
Potassium 3.9 mmol/L (3.5-5.1) 06/07/25 03:36
Chloride 104 mmol/L (98-107) 06/07/25 03:36
Carbon Dioxide 19 mmol/L (22-30) L 06/07/25 03:36
BUN 53 mg/dl (9-20) H 06/07/25 03:36
Creatinine 2.6 mg/dL (0.7-1.3) H 06/07/25 03:36
eGFR 25.09 06/07/25 03:36
Glucose 147 mg/dl (70-99) H 06/07/25 03:36
Calcium 9.0 mg/dl (8.4-10.2) 06/07/25 03:36
Gue-J-Qgdcxtfwdre Pept 5450 pg/ml 06/06/25 13:32
Albumin 3.2 g/dl (3.5-5.0) L 06/07/25 03:36
Physical Exam
-
Vital Signs:
Vital Signs
Temp Pulse Resp BP Pulse Ox
97.4 F 63 25 151/66 93
06/07/25 03:08 06/07/25 07:45 06/07/25 07:45 06/06/25 22:30 06/07/25 07:54
Cardiovascular:: Regular rate and rhythm
Respiratory:: Bilateral: Coarse
Lung Excursion:: Normal
Abdomen:: Nontender and Soft
Bowel Sounds:: Decreased
Extremity Edema:: +1: Bilateral:
Guerra Catheter: Yes
Other Findings::
General: Intubated nonsedated nonresponsive
[2025-06-07 08:11] LABS: Glucose - Point of Care 121 mg/dl (70-99)
[2025-06-07 08:12] LABS: Glycohemoglobin (HgbA1c) 7.1 % (4.0-5.6)
--- NOTE | 2025-06-07 08:12 | W.PN.INTV ---
Today's Communication / Plan
Recommendations
- Low tidal volume to 450, initiate DuoNeb 4 times daily scheduled, initiate Solu-Medrol 40 mg IV daily
- Discontinue heparin infusion, switch to subcu heparin
- Resume tube feeding
- Discontinue propofol to assess neurological status
- Discontinue IV vancomycin, MRSA screen negative.
Assessment
-
Patient is a 74-year-old gentleman with complex past medical history including chronic hypoxic and hypercapnic respiratory failure in the setting of neuromuscular weakness, end-stage renal disease on hemodialysis, on nightly BiPAP for suspected
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 45 minutes prior to dialysis finishing patient developed cardiac arrest. As per EMS records there were no preceding symptoms or distress noted. CPR was
started right away and EMS was called. 10 minutes into CPR EMS arrived and patient was noted to be in PEA with paced rhythm on the monitor without pulse. Patient received 3 doses of epi and CPR was continued for a total of 22 minutes following
which ROSC was achieved. Patient was intubated in the field and brought to the emergency room. Initial blood gas in the emergency room showed a pH of 7 with lactate up to 8 and hypercapnia. Patient started to move around in the emergency room,
briefly opened eyes, received as needed benzodiazepine and later propofol infusion. In view of cardiac arrest, patient is getting admitted to ICU and program director/morning show host consultation was requested for further input.
06/07, over review. Current infusions insulin drip, heparin drip, bicarb infusion.
#1. Cardiac arrest with shock
- Witnessed, during dialysis, no preceding symptoms reported.
- Per EMS records, CPR started at 1240, ACLS initiated at 1250, epi x 3 given, ROSC achieved at 1302. Total time under CPR appears to be 22 minutes. Rhythm noted to be paced/PEA.
- ? Etiology. With patient's known neuromuscular weakness, hypercapnic respiratory failure could certainly have contributed, Aspiration pneumonia noted on CT. Cardiac etiology also in differential diagnosis. EKG without acute ischemic changes
and the first troponin was negative. Pulmonary embolism ruled out with negative CT-PE study.
- Patient had GCS 3 on arrival, subsequently patient briefly opened eyes and was agitated, target normothermia
- Patient breathing above the vent, quivering of chin noted, portable EEG not suggestive of nonconvulsive seizures
- Patient at risk of anoxic encephalopathy, wean off propofol and assess mental status
- 06/07 was hypotensive requiring pressor support, shock likely related to cardiac arrest as well as bilateral aspiration pneumonia. Wean pressors as tolerated
#2. Acute on chronic hypoxic and hypercapnic respiratory failure with Aspiration pneumonia
- At baseline patient is on home oxygen at 2 L and also has chronic compensated hypercapnia and due to neuromuscular weakness on nightly BiPAP therapy
- In the setting of cardiac arrest. Patient was intubated in the field by EMS.
- Known history of neuromuscular weakness with chronic compensated hypercapnia, initial ABG 7.0/, consistent with acute on chronic respiratory acidosis as well as metabolic acidosis.
- CT-PE suggestive of aspiration
- Continue Broad spectrum Antibiotics, added steroids in view of severity of PNA
- High peak pressures on ventilator all the way up to 50 with the plat of 30. Bilateral rhonchi on exam. Lowered tidal volume to 450, initiate bronchodilation with scheduled DuoNeb 4 times daily, initiate Solu-Medrol 40 mg IV daily. Decreased
lung compliance.
- Resume tube feeding
#3. Lactic acidosis.
- Lactate elevated was at 8, as a result of cardiac arrest. Blood gas was 7.0/, suggestive of mixed metabolic and respiratory acidosis
- Continue hyperventilation, pressors as needed, bicarb drip infusing, acidosis and serial lactate improving
- Nephrology service on case, anticipate HD later today
#4. ESRD on HD
- Nephrology service on case.
#5. 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
- NIF testing was -25 to -30, very weak cough with poor expectoration of secretions during last admission
- At baseline has chronic compensated hypercapnia suggestive of underlying hypoventilation
- Patient has been on BiPAP nightly
- Prior h/o Tracheostomy earlier this year
- This is patient's fourth intubation during this year, with underlying neuromuscular weakness and now cardiac arrest, high likelihood of patient requiring long-term ventilatory support
#6. Prior h/o DVT/PE
- Has not been on anticoagulation currently
- Was empirically started on heparin pending CT PE. No evidence of pulmonary embolism noted
- DC heparin drip and switch to subcu heparin
#7. Acute encephalopathy, suspect Anoxic.
- Patient off sedation since early this morning. Eyes are open however does not make any eye contact, no meaningful communication. Absent reflexes. Patient has a gag intact, breathing above the vent. No pupil or corneal reflex. Essentially
unresponsive.
- Neurology consult, repeat EEG
Other medical diagnoses:
- Insulin-dependent diabetes mellitus, currently on insulin infusion
- Chronic dysphagia, had been on tube feeding via PEG tube. Will resume TF
- Hypothyroidism
- Hypertension
- Macular degeneration
- S/p pacemaker placement. Pacer interrogation for further evaluation.
- Pituitary adenoma
Critical Care time 60 mins -- The patient is admitted for acute critical illness for the treatment of vital organ failure and/or prevention of further life-threatening conditions. Total care includes time spent in review of history, physical exam,
medications, hemodynamic/ventilator parameters, laboratory data, imaging and discussion with house staff, pharmacy, respiratory therapy, shot blaster, and nursing.
Prognosis is poor
Data:
CT Head 05/2025: Ill-defined low signal intensity in the central aspect of the pili, which could be artifactual or secondary to age-indeterminate ischemia.
Chronic senescent changes.
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
Slight blurring of the karimi-white matter differentiation may reflect the early changes of hypoxic ischemic encephalopathy in the setting of cardiac arrest. Continued imaging follow-up can be performed as clinically indicated.
CXR 05/2025: Lines and tubes, as above.
Hazy opacities within the left lung, more confluent on the left lung base with obscuration of the hemidiaphragm. Findings again may represent a combination of atelectasis and pleural fluid, though improved compared to earlier recent chest x-rays.
Subjective Dataa
Subjective Data
Date of Service:
Date of Service: June 07, 2025
Subjective:
Patient currently intubated, mechanically ventilated, off sedation
Review of Systems
General: Unobtainable - Pat Unresp
Objective Data
Data Reviewed
Vital Signs / I&O / Oxygen:
Vital Signs
Temp Pulse Resp BP Pulse Ox
97.4 F 63 25 151/66 93
06/07/25 03:08 06/07/25 07:45 06/07/25 07:45 06/06/25 22:30 06/07/25 07:54
Intake and Output
06/06/25 06/07/25 06/08/25
06:59 06:59 06:59
Intake Total 1735.7 / 1829.2 93.5 / 93.5
Output Total 66 / 75 9 / 9
Balance 1669.7 / 1754.2 84.5 / 84.5
SaO2 [A/C] 93
SaO2 94
Physical Exam
General: Comfortable
HEENT: Normocephalic
Cardiovascular: S1-S2
Respiratory: Crackles and Rhonchi
GI: Soft and Non Distended
Neurology: Other (Eyes open, does not make eye contact, no meaningful communication)
Skin: Warm
Labs/Micro/Reports
Lab Data
06/07/25 03:36
06/07/25 03:36
Laboratory Results
06/06/25 06/06/25 06/06/25
13:32 13:34 17:46
PT 16.5 H
INR 1.31
APTT 43.1 H
pH 7.00 L* 7.27 L
pCO2 67 H 42
pO2 143 H 131 H
HCO3 16.5 L 19.3 L
O2 Delivery Level Ra
06/06/25 06/06/25 06/07/25
18:21 23:15 01:13
PT
INR
APTT 32.4 > 200 H*
pH 7.30 L
pCO2 36
pO2 115 H
HCO3 17.7 L
O2 Delivery Level
06/07/25
04:36
PT
INR
APTT
pH 7.34 L
pCO2 39
pO2 102
HCO3 21.0
O2 Delivery Level
[2025-06-07] MEDS: MIRALAX TUBE (08:14)
[2025-06-07] MEDS: NSS (PRESERVATIVE FREE) 10 ML IV ×2 (08:15→19:38)
[2025-06-07] MEDS: ASPIRIN 325 MG TUBE ×2 (08:15→08:16)
[2025-06-07] MEDS: SOLU-MEDROL PF 40 MG IV (08:15)
[2025-06-07] MEDS: PROTONIX IV 40 MG IV ×2 (08:15→19:39)
[2025-06-07] MEDS: VITAMIN C 500 MG TUBE (08:16)
--- NOTE | 2025-06-07 08:52 | CON.NEURO ---
Addendum entered and electronically signed by Vijay Guy MD 06/07/25 10:54:
Studies reviewed.
I have personally examined the patient. I reviewed and agree with the [employer]'s Note.
My addenda:
Unresponsive to verbal and physical stimulation. No attempt at speech
Semirhythmic jaw movements lasting for approximately 1 second intermittently
Patient maintains eyes open with no blink to threat. Pupillary response is unremarkable.
Spontaneous nonpurposeful movement of right greater than left medium amplitude shaking of foot lasting approximately 1 second intermittently not timed with jaw tremors which are more frequent
Neck: full ROM.
Chest: no dyspnea
Heart: no JVD
Ext: (-) Clubbing, (-) Cyanosis, (-) Edema
IMPRESSIONS/RECOMMENDATIONS:
Abrupt onset of change in mental status following prolonged cardiac arrest.
Patient's prolonged arrest with seizures demonstrated by early continuous EEG monitoring as well as changes seen by CAT scan of head suggestive of anoxic injury are all suggestive of poor prognosis for meaningful neurological recovery.
Additionally, the patient's myoclonic movements are also suggestive of a poor prognosis.
Start continuous EEG monitoring
Provide levetiracetam loading dose 4500 mg then 500 mg twice a day, with supplemental 500 mg IV after hemodialysis
Check MRI of brain when possible
Continue supportive care
Will continue to follow patient.
Original Note:
Neuro Assessment/Plan
Assessment
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
Head CT:
Ill-defined low signal intensity in the central aspect of the pili, which could be artifactual or secondary to age-indeterminate ischemia.
Chronic senescent changes.
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
Slight blurring of the karimi-white matter differentiation may reflect the early changes of hypoxic ischemic encephalopathy in the setting of cardiac arrest. Continued imaging follow-up can be performed as clinically indicated.
Plan
Impression: seizure activity in the setting of anoxic brain injury following cardiac arrest
-obtain continuous EEG to monitor for seizure activity
-seizure precautions
-load with 4,500mg Levetiracetam and start 500mg IV Q12h with a supplemental dose of 500mg IV after HD
-consider obtaining brain MRI
-continue neurochecks per unit guidelines
-DVT prophylaxis
Consultation
Order
Date of Consultation: 06/07/25
Requesting Provider: hospitalist
Reason for Consult: seizure
Subjective/Objective
Subjective Data
Date of Service: June 07, 2025
All history obtained from staff and chart. Patient is intubated, unresponsive and unable to provide any further history. Currently no family is present at bedside. Patient is a 74-year-old male with a past medical history including chronic hypoxic
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
06/06/2025. He was receiving dialysis at his dialysis facility and 45 minutes prior to dialysis finishing patient developed cardiac arrest. As per EMS records there were no preceding symptoms or distress noted. CPR was started right away and EMS
was called. 10 minutes into CPR EMS arrived and patient was noted to be in PEA with paced rhythm on the monitor without pulse. Patient received 3 doses of epi and CPR was continued for a total of 22 minutes following which ROSC was achieved.
Patient was intubated in the field and brought to the emergency room. Initial blood gas in the emergency room showed a pH of 7 with lactate up to 8 and hypercapnia. Patient started to move around in the emergency room, briefly opened eyes,
received as needed benzodiazepine and later propofol infusion. The patient has been on dialysis since September 2024 when he was originally admitted to [facility]. He has been in numerous hospitals and at one time was in [place]. He has
been intubated multiple times over the course of the past year. His head CT showed small chronic infarct in the left frontal lobe white matter and slight blurring of the karimi-white matter differentiation may reflect the early changes of hypoxic
ischemic encephalopathy in the setting of cardiac arrest. He was put on Ceribell which showed seizure activity. Neurology is consulted for seizure activity. Exam currently unresponsive to verbal or painful stimuli. Absent dolls eyes. Constant
rhythmic movement of jaw and intermittent tremor to RLE off of sedation.
Objective Data
Vital Signs
Temp Pulse Resp BP Pulse Ox
99.1 F 63 25 151/66 93
06/07/25 08:00 06/07/25 07:45 06/07/25 07:45 06/06/25 22:30 06/07/25 07:54
Lab Results
06/07/25 03:36
06/07/25 03:36
PT 16.5 Sec (11.4-14.6) H 06/06/25 13:32
INR 1.31 06/06/25 13:32
APTT > 200 Sec (23.4-35.0) H* 06/07/25 01:13
Sodium 132 mmol/L (135-145) L 06/07/25 03:36
Potassium 3.9 mmol/L (3.5-5.1) 06/07/25 03:36
BUN 53 mg/dl (9-20) H 06/07/25 03:36
Glucose 147 mg/dl (70-99) H 06/07/25 03:36
Calcium 9.0 mg/dl (8.4-10.2) 06/07/25 03:36
Bhc-N-Llisakygdnf Pept 5450 pg/ml 06/06/25 13:32
Patient Allergies
Iodinated Contrast Media Allergy (Verified 06/06/25 15:57)
Unknown
mesalamine Allergy (Verified 06/06/25 15:57)
Unknown
Penicillins Allergy (Verified 06/06/25 15:57)
Unknown/childhood; tolerates cephalosporins
Sulfa (Sulfonamide Antibiotics) Allergy (Verified 06/06/25 15:57)
Unknown
Review of Systems
-
Unable to obtain full review of systems at this time due to: Acuity and Patient Intubation
Physical Exam
-
physical exam limited, patient is intubated and unresponsive. Does not withdrawal to pain. Has rhythmic movements of jaw which are constant and RLE is intermittent. Patient is currently off of sedation. No pupil or corneal reflex but positive gag
reflex.
General: Appears Chronically Ill
HEENT: Normocephalic, Atraumatic and Anicteric
GI: Non-distended
Extremities: Edema +2 (LEs) and Other (venous status dermatitis of b/l LEs)
Psych: Unable to Assess
Extended Neurological Exam
Mood & Affect: Unable to Assess
Attention Span & Concentration: Unresponsive to Verbal Stimuli and Unresponsive to Physical Stimuli
Memory: Unable to Assess
Speech: Unable to Assess
Cranial Nerves III, IV, : Extraocular Movement: Absent Doll's Eyes
Deep Tendon Reflexes: Absent Throughout
Medications
-
Active Medications
Generic Name Dose Route Start Last Admin
Trade Name Freq PRN Reason Stop Dose Admin
Acetaminophen 650 mg 06/06/25 19:02
Acetaminophen (Oral Solution) 650 Mg/20.3 Ml Cup TUBE 07/04/25 19:01
Q4HPRN PRN
pain, fever
Albuterol/Ipratropium 3 ml 06/06/25 17:24 06/07/25 07:22
Ipratropium 0.5/Albuterol 3 Mg (3 Ml Ampul) INH 3 ml
R Q6HPRN PRN Administration
SOB
Protocol
Albuterol/Ipratropium 3 ml 06/07/25 08:00 06/07/25 07:37
Ipratropium 0.5/Albuterol 3 Mg (3 Ml Ampul) INH Not Given
R QID KEVIN
Protocol
Ascorbic Acid 500 mg 06/07/25 08:00 06/07/25 08:16
Ascorbic Acid 500 Mg Tablet TUBE 07/05/25 07:59 500 mg
DAILY KEVIN Administration
Aspirin 325 mg 06/07/25 08:00 06/07/25 08:16
Aspirin 325 Mg Tablet TUBE 07/05/25 07:59 325 mg
DAILY KEVIN Administration
Atorvastatin Calcium 40 mg 06/06/25 20:00 06/06/25 20:17
Atorvastatin (Lipitor) 40 Mg Tablet TUBE 07/04/25 19:59 40 mg
DAILY@2000 KEVIN Administration
Dextrose 12.5 grams 06/06/25 19:00
Dextrose 50% (0.5 Grams/Ml) 50 Ml Syringe IV 07/04/25 18:59
[id number] PRN
Blood Glucose < 70
Fentanyl Citrate 50 mcg 06/06/25 18:55
Fentanyl (50 Mcg/Ml) 100 Mcg/2 Ml Ampul IV 06/20/25 18:54
[id number] PRN
see protocol
Protocol
Heparin Sodium 8,900 units 06/06/25 17:51
Heparin 80 Units/Kg Iv Rebolus IV 07/04/25 17:50
PRN PRN
PTT < OR = 64 seconds
Heparin Sodium 4,400 units 06/06/25 17:51
Heparin 40 Units/Kg Iv Rebolus IV 07/04/25 17:50
PRN PRN
PTT = 64.1 to 72.9 seconds
Heparin Sodium 0 units 06/08/25 08:00
Heparin (1000 Units/Ml) 10,000 Units/10 Ml Vial INTRACATH 06/08/25 08:01
HD-ONCE ONE
Vancomycin HCl 1 each/ Device 0 mls @ 0 mls/hr 06/06/25 17:24
IV
PER PROTOCOL KEVIN
Protocol
As Directed
Piperacillin Sod/Tazobactam Sod 2.25 grams in 50 mls @ 100 mls/hr 06/06/25 22:00 06/07/25 05:08
Zosyn IV 50 mls
Q8H KEVIN Administration
Heparin Sodium 25,000 units in 250 mls @ 0 mls/hr 06/06/25 17:45 06/06/25 19:31
Heparin 07838 Units/250 Ml IV 250 mls
PER PROTOCOL KEVIN Administration
Protocol
Per Protocol
Fentanyl Citrate 1,000 mcg in 100 mls @ 0 mls/hr 06/06/25 19:00 06/06/25 19:33
Sublimaze IV 100 mls
On Hold: 06/07/25 01:54 PER PROTOCOL KEVIN Administration
Protocol
Per Protocol
Propofol 1,000,000 mcg in 100 mls @ 0 mls/hr 06/06/25 19:00 06/07/25 05:02
Diprivan IV 100 mls
PER PROTOCOL KEVIN Administration
Protocol
Per Protocol
Insulin Human Regular 100 units in 100 mls @ 0 mls/hr 06/06/25 19:00 06/07/25 04:41
Novolin R Insulin Infusion IV 100 mls
PER PROTOCOL KEVIN Administration
Protocol
Per Protocol
Norepinephrine Bitartrate 4 mg in 250 mls @ 0 mls/hr 06/06/25 21:30 06/06/25 21:24
Levophed IV 250 mls
PER PROTOCOL KEVIN Administration
Protocol
Per Protocol
Sodium Bicarbonate 150 meq/ 1,150 mls @ 75 mls/hr 06/06/25 23:30 06/06/25 23:53
Sterile Water IV 06/07/25 14:49 1,150 mls
.[id number] KEVIN Administration
Insulin Aspart 0 units 06/07/25 07:30 06/07/25 07:18
Insulin Aspart (Novolog) 100 Units/Ml 3 Ml Flexpen SC 07/05/25 07:29 Not Given
AC KEVIN
Protocol
Levothyroxine Sodium 150 mcg 06/07/25 06:00 06/07/25 05:09
Levothyroxine 150 Mcg Tablet TUBE 07/05/25 05:59 150 mcg
DAILY@0600 KEVIN Administration
Mannitol 12.5 grams 06/08/25 08:00
Mannitol 25% (12.5 Grams/50 Ml) Vial IV 06/08/25 23:59
HD-Q1HPRN PRN
SBP < 90 mmHg
Methylprednisolone Sodium Succinate 40 mg 06/07/25 08:00 06/07/25 08:15
Methylprednisolone Pf 40 Mg/Ml Vial IV 07/05/25 07:59 40 mg
DAILY KEVIN Administration
Metoprolol Tartrate 25 mg 06/06/25 20:00 06/06/25 20:17
Metoprolol 25 Mg Regular Release Tablet TUBE 07/04/25 19:59 25 mg
On Hold: 06/06/25 21:18 BID KEVIN Administration
Cabergoline 0.5 Mg 0 mg 06/08/25 08:00
Tablet - 1 Tablet ( TUBE 07/06/25 07:59
0.5mg) Po Q4d Q4D KEVIN
Pantoprazole Sodium 40 mg 06/06/25 20:00 06/07/25 08:15
Pantoprazole Sodium 40 Mg/10 Ml Vial IV 07/04/25 19:59 40 mg
BID KEVIN Administration
Polyethylene Glycol 17 grams 06/07/25 08:00 06/07/25 08:14
Polyethylene Glycol Powder 17 Grams Packet TUBE 07/05/25 07:59 Not Given
DAILY KEVIN
Primidone 50 mg 06/06/25 22:00 06/06/25 23:07
Primidone 50 Mg Tablet TUBE 07/04/25 21:59 50 mg
HS KEVIN Administration
Sodium Chloride 0 flush 06/06/25 17:00
Sodium Chloride 0.9% (Flush) Syringe IV 07/04/25 16:59
PER PROTOCOL KEVIN
Sodium Chloride 10 ml 06/06/25 20:00 06/07/25 08:15
Sodium Chloride 0.9% (Preservative Free) 10 Ml Vial IV 07/04/25 19:59 10 ml
BID KEVIN Administration
Sodium Chloride 10 ml 06/08/25 08:00
Sodium Chloride (4 Meq/Ml) 30 Ml Vial *For Hemodialysis* IV 06/08/25 23:59
HD-Q1HPRN PRN
cramps
Home Medications
�Medication �Instructions �Recorded
acetaminophen 325 mg tablet 325 mg feeding tube ONCE PRN pain, 05/13/25
fever
ammonium lactate 12 % topical cream 1 applic topical DAILY Skin Issues 05/13/25
ascorbic acid (vitamin C) 500 mg 500 mg feeding tube DAILY 05/13/25
tablet Supplement
aspirin 325 mg tablet 325 mg feeding tube DAILY Blood 05/13/25
Clot Prevention/Tx
atorvastatin 40 mg tablet 40 mg feeding tube QPM High 05/13/25
Cholesterol
balsam rush-castor oil topical 1 applic topical DAILY dryness and 05/13/25
ointment (Venelex topical ointment) reddness
bumetanide 2 mg tablet 2 mg feeding tube SUTUTHSA Fluid 05/13/25
Retention/Swelling
cabergoline 0.5 mg tablet 0.5 mg feeding tube Q4D pituitary 05/13/25
adenoma
cholecalciferol (vitamin D3) 50 50 mcg feeding tube DAILY 05/13/25
mcg (2,000 unit) tablet Supplement
escitalopram oxalate 20 mg tablet 20 mg feeding tube DAILY Mental 05/13/25
Health/Anxiety
guaifenesin 200 mg/5 mL oral liquid 200 mg feeding tube BID Congestion 05/13/25
hydralazine 25 mg tablet 25 mg feeding tube QID Blood 05/13/25
Pressure
insulin glargine 100 unit/mL (3 24 unit SC QPM Diabetes 05/13/25
mL) subcutaneous pen
insulin regular human 100 unit/mL 2 - 10 sliding scale dose SC 05/13/25
(3 mL) subcutaneous pen (Novolin R DIRECTED Diabetes
FlexPen)
insulin regular human 100 unit/mL 4 unit SC BID Diabetes 05/13/25
(3 mL) subcutaneous pen (Novolin R
FlexPen)
ipratropium 0.5 mg-albuterol 3 mg 3 ml inhalation Q6H PRN SOB 05/13/25
(2.5 mg base)/3 mL nebulization
soln
levothyroxine 150 mcg tablet 150 mcg feeding tube DAILY Thyroid 05/13/25
lidocaine HCl 4 % topical patch 1 patch topical DAILY PRN pain 05/13/25
metoprolol tartrate 25 mg tablet 25 mg feeding tube BID Heart 05/13/25
Disease/Condition
multivitamin 1 tab feeding tube DAILY Supplement 05/13/25
primidone 50 mg tablet 50 mg feeding tube HS tremor 05/13/25
sevelamer carbonate 0.8 gram oral 1.6 g feeding tube TID Kidney 05/13/25
powder packet Disease
omeprazole 20 mg capsule,delayed 20 mg feeding tube BID 06/06/25
release Gastrointestinal Issue
polyethylene glycol 3350 17 gram 17 g feeding tube DAILY 06/06/25
oral powder packet (Miralax) Constipation
Past History
Past History
ED Past Medical History: Other (GBS, diabetes, thrombocytopenia, kidney failure/hemodialysis, left upper extremity DVT, COPD, reflux)
Family/Social History
Tobacco: Non-smoker
Drug: None
Personal:
Living: intermediate
[2025-06-07 09:22] LABS: Glucose - Point of Care 122 mg/dl (70-99)
[2025-06-07 09:48] VITALS: BMI 32.1
[2025-06-07 10:20] LABS: Glucose - Point of Care 123 mg/dl (70-99)
[2025-06-07] MEDS: KEPPRA 45 MG IV (10:28)
--- NOTE | 2025-06-07 10:28 | CM ---
Pt was at [facility] for Skilled rehab and HD MWF. Spoke with Lizbeth at [facility] pt was alert awake oriented at [facility] . He became unresponsive. Pt had a PEA arrest and is now in ICU. At [facility] he was alondra lift to wheelchair . Pt was on oxygen at
SNF and remains on oxygen. As per Lizbeth he has approximately 20 skilled days left.
[facility]
Pharmacy [facility] [address] [place] [facility]
PCP DR Salamanca
PLAN Will depend on hospital course of care. IF SNF will need at SNF with HD
--- NOTE | 2025-06-07 10:32 | W.RAPID.EEG ---
Rapid EEG
-
Procedure Date: 06/07/25
Results:
This EEG indicates the presence of non-convulsive seizures.
There is no evidence of status epilepticus. Impressions are in the above image. Clinical correlation is advised
--- NOTE | 2025-06-07 10:35 | EEGC.RPT ---
Continuous EEG Report
Recording
Start Date of Data Reviewed: 06/07/25
Start Time of Data Reviewed: 10:40
End Date of Data Reviewed: 06/08/25
End Time of Data Reviewed: 07:00
Type of EEG: Continuous
Done with Video Recording: Yes
Study Sequence: Initiation of Study
Electrocardiogram: Unremarkable
Report
24 HOUR CONTINUOUS EEG REPORT
24 HOUR CONTINUOUS EEG INTERPRETATION:
Severely abnormal EEG for age in wakefulness through drowsiness due to:
Isoelectric burst suppression activity lack of unresponsiveness transitioning to independent bilateral generalized lateralizing periodic discharges
CLINICAL CORRELATION:
This study was suggestive of severe bihemispheric cortical dysfunction with independent focal abnormalities bilaterally frontally.
Clinical correlation is advised.
METHODS:
A 21 channel digitized electroencephalogram (EEG) was performed at the bedside in the intensive care unit. The 10/20 international system of electrode placement was used. ECG was monitored. Persyst quantitative analysis was performed.
ELECTROENCEPHALOGRAPHER IMPRESSION(S):
Quality
Good
Background
Maximum: No specific background demonstrated
Anterior-posterior gradient: Absent
Sleep
Not demonstrated
Abnormal EEG activity
Initially demonstrated were isoelectric suppressions lasting for approximately 10 seconds were interrupted by bursts of poorly organized theta activity lasting for approximately 4 seconds transitioning by page 5345 to dependent bilateral (F3
maximal, F4 maximal) frontal medium amplitude semirhythmic 0.25-second focal slowing
Electrocardiogram
Regular rhythm
[2025-06-07 11:16] LABS: Glucose - Point of Care 105 mg/dl (70-99)
--- NOTE | 2025-06-07 11:30 | PTCARENOTE ---
Systems reviewed. Pt remains unresponsive. Continuous eeg in place. Insulin and bicarb gtts continue. Heparin has been stopped as ordered. Family at bedside and updated. Otherwise please refer to work list
[2025-06-07 11:49] LABS: B.E. -3.3 mmol/L; HCO3 22.1 mmol/L (21-28); O2 Saturation % 95.3 % (94-98); PCO2 40 mmHg (35-48); PO2 65 mmHg (83-108)
--- NOTE | 2025-06-07 12:11 | PN.DE.MGMTRT ---
Insulin Management
- -
06/07/2025 Diabetes Management Consult
Patient admitted 06/06 s/p cardiac arrest at group home during dialysis. PMH diabetes, thrombocytopenia, pseudomonas pneumonia, l upper ext DVT, renal failure - dialysis, COPD, reflux, [place], PEG tube, CHF hypothyroid, dysphagia, HTN,
pituitary adenoma, macular degeneration. Prior to admission was receiving lantus 24 units HS with Regular 4 units BID and ss 2 to 10 units. A1C on admission 7.1%, cr 2.6, eGFR 25.09 today.
Patient is intubated, sedated, patient is critically ill; information obtained from patient chart and patient nurse. Patient currently receiving critical care glycemic protocol insulin infusion 8 to 12 units last evening, 2 to 4 units this AM.
Nurse reports tube feeds to restart.
Will continue glycemic protocol insulin infusion and add Q6 hour novolog 4 units.
Discussed with nurse.
Will follow
Diabetes History
- -
Type of Diabetes: 2 requiring insulin
Pre-Admission Diabetes Regimen
06/06/25 06/06/25 06/07/25
13:32 23:15 03:36
Creatinine 2.4 H 2.6 H 2.6 H
Lab Results
Hemoglobin A1c Cancelled 06/06/25 19:00
Insulin Pump Settings
IP Diabetes Regimen
06/06/25 06/06/25 06/06/25
13:32 20:00 21:01
Glucose 284 H
POC Glucose 289 H 294 H
06/06/25 06/06/25 06/06/25
22:15 23:03 23:15
Glucose 231 H
POC Glucose 266 H 248 H
06/06/25 06/07/25 06/07/25
23:55 00:56 01:58
Glucose
POC Glucose 235 H 198 H 164 H
06/07/25 06/07/25 06/07/25
02:59 03:36 03:55
Glucose 147 H
POC Glucose 153 H 134 H
06/07/25 06/07/25 06/07/25
04:51 05:55 06:58
Glucose
POC Glucose 128 H 100 H 110 H
06/07/25 06/07/25 06/07/25
08:00 09:10 10:09
Glucose
POC Glucose 121 H 122 H 123 H
06/07/25
11:04
Glucose
POC Glucose 105 H
Meal type: Dinner
Patient Education
[2025-06-07 12:14] LABS: Glucose - Point of Care 129 mg/dl (70-99)
[2025-06-07 13:11] LABS: Glucose - Point of Care 127 mg/dl (70-99)
[2025-06-07] MEDS: NOVOLOG FLEXPEN 4 UNITS SC ×3 (13:18→23:53)
[2025-06-07] MEDS: HYDROPHOR 1 APPLIC TOPICAL (13:22)
--- NOTE | 2025-06-07 13:58 | W.PN.HOSP.TC ---
Today's Communication/Plan
-
Monitor vital signs see plan
Prognosis appears guarded
Discussed with family
Wean vent as tolerated
Wean sedation as tolerated
Continue with antibiotics
Continue antiepileptic
Assessment / Plan
Assessment / Plan
HEENT: Normocephalic
Cardiovascular: S1/S2,RRR
Respiratory: Rhonchi, ventilated breaths
GI: Soft and Non Distended
Neurology: AAox1
Psych: sedated
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
Acute on chronic hypoxic respiratory failure
Intubated
- Leukocytosis
- Chest x-ray shows hazy opacities in the left lung, more confluent in the left lung base with obscuration of the hemidiaphragm which represent atelectasis versus pleural fluid
-CT head shows small chronic infarct in the left frontal lobe
-CT neg for PE
-EKG shows atrial paced rhythm with prolonged AV conduction.
- IV fluids
-Hold Bumex
cw abx
Patient CT scan head suggestive of anoxic injury, poor prognosis for meaningful neurological recovery. On continuous EEG. On Keppra. Neurology following
Discussed with family at length as well. Prognosis appears guarded.
lactic acidosis
likely post PEA arrest
monitor
Elevated troponin likely secondary to cardiac arrest
Monitor
# Hypokalemia
- Do not replete because ESRD patient
History of Pseudomonas/MSSA pneumonia
COPD/ Chronic respiratory failure on 2 L baseline
ESRD on hemodialysis Friday, Friday, Friday
-mostly completed diaysis today
- Nephrology consulted
- Continue sevelamer
Hyponatremia
Essential hypertension
-continue hydralazine
History of pacemaker
- Interrogate pacemaker
Type 2 diabetes
- Reduce Lantus from 24 to 12 units
- Insulin sliding scale
History of PE/DVT
Guillain-Wright� status post PEG tube
History of CHF
- Continue metoprolol
Hypothyroidism
- Continue levothyroxine
Pituitary adenoma
- Continue cabergoline
Anxiety/depression
- Hold Lexapro
Full code
DVT prophylaxis�heparin
N.p.o.
Total Critical Care Time__43___ minutes. I was immediately available to the patient and staff. I personally examined, reviewed labs, diagnostic images/reports, interpretations, treatment plans, discussed patient care with other providers and
family or caregivers (if patient is unable to make decisions), entered orders as appropriate and documented the medical record.
Anticipated Discharge: > 48 hours
Subjective/Interval History
-
Date of Service: June 07, 2025
Intubated
Objective Data
-
Labs:
Laboratory Results
06/07/25 06/07/25 06/07/25
03:36 04:36 10:00
WBC 59.0 H*
Hgb 11.0 L
Hct 33.4 L
Plt Count 293
APTT Cancelled
HCO3 21.0
Sodium 132 L
Potassium 3.9
Chloride 104
Carbon Dioxide 19 L
BUN 53 H
Creatinine 2.6 H
Glucose 147 H
Calcium 9.0
Total Bilirubin 0.6
AST 96 H
ALT 114 H
Alkaline Phosphatase 190 H
06/07/25
11:36
WBC
Hgb
Hct
Plt Count
APTT
HCO3 22.1
Sodium
Potassium
Chloride
Carbon Dioxide
BUN
Creatinine
Glucose
Calcium
Total Bilirubin
AST
ALT
Alkaline Phosphatase
Vital Signs:
Vital Signs
Temp Pulse Resp BP Pulse Ox
98.4 F 65 25 151/66 95
06/07/25 12:11 06/07/25 11:22 06/07/25 11:22 06/06/25 22:30 06/07/25 12:00
I&O
06/06/25 06/07/25 06/08/25
06:59 06:59 06:59
Intake Total 1735.7 / 1829.2 611.7 / 611.7
Output Total 66 / 75 45 / 45
Balance 1669.7 / 1754.2 566.7 / 566.7
[2025-06-07 14:20] LABS: Glucose - Point of Care 137 mg/dl (70-99)
--- NOTE | 2025-06-07 14:25 | PTCARENOTE ---
after repositioning, pt noted to have sats of only 90, hyperoxygenated then suctioned for mod amount yellow sputum with improvement to 93%.
[2025-06-07 15:14] LABS: Glucose - Point of Care 147 mg/dl (70-99)
--- NOTE | 2025-06-07 15:20 | WOUNDNOTE ---
WON RN note: Patient admitted with Cardiac arrest.
See H&P for complete history. Patient admitted from [facility].
PMH: Sheree [place], COPD, respiratory insufficiency (on o2), IDDM, ESRD on HD, PE, DVT, CHF, PEG. venous legs.
Wound Location and type/assessment: Patient known to service, last seen 05/18/25. at bedside reports that he has had venous leg wounds on and off in past, goes to [employer] Dr. Oconnor. Uses compression with Tubigrip. Now admitted with dry
flaky skin on both legs, no drainage, +1 edema. Mineral oil already in use, nurse Kim applied earlier. Heels intact. B/L groins with MASD R>L. MASD to perineum, scrotum and sacrum, barrier cream in use. L elbow with stage 1 pressure injury, same as
last admission. FT site intact, scant drainage.
Appetite: PEG, NPO.
Pressure redistribution devices in place: Air mattress with turning schedule, pillow under calves.
Plan: Silicone border foam applied to sacrum. Silicone border foam applied to L elbow. Patient turned to R semi side lying position with help from NICKI Alvarez. Will order fungal powder to use in groin skin folds, remainder of skin recommend barrier
cream. Continue mineral oil to legs daily, if drainage apply adaptic and dry dressing daily. Tubigrip size F or G to start tomorrow, called [facility] for supply. Will confirm orders with Dr. Cowart and discussed with nurse.
Care plan to be updated and will follow as needed.
--- NOTE | 2025-06-07 15:48 | CARDSERVLU ---
Echocardiogram with Lumason completed after protocol screening completed. Allergies verified.
Patent IV site: __existing 22P RW___
IV site flushed with 0.9% NaCl pre and post administration.
Diluted bolus method utilized to enhance visualization of ventricular rico.
Total volume given: __2.5__ mL
Patient tolerated all procedures well without complications.
--- NOTE | 2025-06-07 15:54 | PTCARENOTE ---
Pt had echo at bedside. Systems reviewed and without changes. Family at bedside and updated t/o day.
[2025-06-07] MEDS: HEPARIN 5000 UNITS SC ×2 (16:08→23:37)
[2025-06-07 16:09] LABS: Glucose - Point of Care 156 mg/dl (70-99)
[2025-06-07 18:12] LABS: Glucose - Point of Care 172 mg/dl (70-99)
[2025-06-07] MEDS: LIPITOR 40 MG TUBE (19:38)
[2025-06-07] MEDS: DESENEX/MITRAZOL/ZEASORB 1 APPLIC TOPICAL (19:38)
[2025-06-07] MEDS: KEPPRA 500 MG IV (19:38)
[2025-06-07 20:14] LABS: Glucose - Point of Care 192 mg/dl (70-99)
--- NOTE | 2025-06-07 20:28 | PTCARENOTE ---
Received pt from previous RN. Pt is unresponsive, b/l pupils sluggish 2, nonverbal/withdrawn, chin tremor at times. Continuous EEG in place. NSR w/ 1st degree, apaced. ETT #7.5 @ 25 cm, AC 25/450/40%/5, O2 sat 96%, lungs coarse/rhonchi. Nepro at
50ml/hr with 25 ml water flush through PEG tube. Guerra in place, milky cloudy urine, oliguric. Insulin gtt maintained (see worklist). CHG bath and mouth care provided. Family at bedside. Safe environment maintained.
[2025-06-07 21:16] LABS: Glucose - Point of Care 197 mg/dl (70-99)
[2025-06-07] MEDS: MYSOLINE 50 MG TUBE (21:58)
[2025-06-07 22:16] LABS: Glucose - Point of Care 178 mg/dl (70-99)
[2025-06-08 00:04] LABS: Glucose - Point of Care 165 mg/dl (70-99)
--- NOTE | 2025-06-08 00:11 | PTCARENOTE ---
Systems reviewed, no new changes in assessment. Insulin gtt maintained. O2 sat 97%, AC 25/450/60%/5. Reva zeroed and transduced. Safe environment maintained.
[2025-06-08 02:05] LABS: Glucose - Point of Care 189 mg/dl (70-99)
[2025-06-08 03:05] LABS: Glucose - Point of Care 194 mg/dl (70-99)
[2025-06-08] MEDS: NOVOLIN R INSULIN INFUSION 100 IV ×2 (03:58→18:28)
[2025-06-08 04:04] LABS: B.E. -2.5 mmol/L; HCO3 22.5 mmol/L (21-28); O2 Saturation % 100.0 % (94-98); PCO2 39 mmHg (35-48); PO2 113 mmHg (83-108)
[2025-06-08 04:07] LABS: Glucose - Point of Care 207 mg/dl (70-99)
[2025-06-08 04:10] LABS: Hematocrit 27.9 % (39.0-52.0); Hemoglobin 9.3 g/dL (13.0-18.0); Mean Corp Hgb Conc. 33.3 g/dL (33.0-37.0); Mean Corpuscular Volume 85.3 fL (80.0-94.0); Platelet Count 257 10^3/uL (130-400); Red Cell Dist. Width 15.7 % (11.5-14.5)
--- NOTE | 2025-06-08 04:17 | PTCARENOTE ---
Systems reviewed, no new changes in assessment. AM labs provided. Safe environment maintained.
[2025-06-08 04:34] LABS: ALT (SGPT) 72 U/L (0-50); AST (SGOT) 60 U/L (17-59); Albumin 2.9 g/dl (3.5-5.0); Alkaline Phosphatase 162 U/L (38-126); Blood Urea Nitrogen 70 mg/dl (9-20); Calcium 9.6 mg/dl (8.4-10.2); Carbon Dioxide 21 mmol/L (22-30); Chloride 98 mmol/L (98-107); Estimated Creatinine Clearance 27 ml/min; Glucose 196 mg/dl (70-99); Magnesium 2.2 mg/dl (1.6-2.3); Potassium 4.6 mmol/L (3.5-5.1); Sodium 129 mmol/L (135-145); Total Protein 5.4 g/dl (6.3-8.2); eGFR 21.13
--- NOTE | 2025-06-08 04:58 | PTCARENOTE ---
LADAN called for an update, update provided.
[2025-06-08] MEDS: SYNTHROID 150 MCG TUBE (05:01)
[2025-06-08] MEDS: ZOSYN 50 IV ×3 (05:01→21:25)
[2025-06-08] MEDS: NOVOLOG FLEXPEN 4 UNITS SC (05:01)
[2025-06-08 05:05] LABS: Glucose - Point of Care 181 mg/dl (70-99)
[2025-06-08 06:00] VITALS: BMI 32.6
[2025-06-08 06:11] LABS: Glucose - Point of Care 167 mg/dl (70-99)
[2025-06-08 07:02] LABS: Glucose - Point of Care 150 mg/dl (70-99)
[2025-06-08] MEDS: DUONEB 3 ML INH ×4 (07:49→22:24)
--- NOTE | 2025-06-08 08:19 | PN.DE.MGMTRT ---
Insulin Management
- -
06/08/2025 Diabetes Management Consult Follow up
Patient [facility]. PMH diabetes, thrombocytopenia, pseudomonas pneumonia, l upper ext DVT, renal failure - dialysis, COPD, reflux, [place], PEG tube, CHF hypothyroid, dysphagia, HTN,
pituitary adenoma, macular degeneration. Prior to admission was receiving lantus 24 units HS with Regular 4 units BID and ss 2 to 10 units. A1C on admission 7.1%, cr 2.6, eGFR 25.09 today.
Patient is intubated, sedated, patient is critically ill; information obtained from patient chart and patient nurse. Patient currently receiving critical care glycemic protocol insulin infusion 8 to 12 units last evening, 2 to 4 units this AM.
Tube feeds restarted yesterday 4 units novolog sq provided Q6 hours.
Will continue glycemic protocol insulin infusion and increase Q6 hour novolog 8 units sq.
Discussed with nurse.
Will follow
Diabetes History
- -
Type of Diabetes: 2 requiring insulin
Pre-Admission Diabetes Regimen
06/08/25
03:56
Creatinine 3.0 H
Lab Results
Hemoglobin A1c Cancelled 06/06/25 19:00
Insulin Pump Settings
IP Diabetes Regimen
06/07/25 06/07/25 06/07/25
09:10 10:09 11:04
Glucose
POC Glucose 122 H 123 H 105 H
06/07/25 06/07/25 06/07/25
12:03 12:59 14:08
Glucose
POC Glucose 129 H 127 H 137 H
06/07/25 06/07/25 06/07/25
15:03 15:58 18:01
Glucose
POC Glucose 147 H 156 H 172 H
06/07/25 06/07/25 06/07/25
20:02 21:04 22:05
Glucose
POC Glucose 192 H 197 H 178 H
06/07/25 06/08/25 06/08/25
23:51 01:53 02:53
Glucose
POC Glucose 165 H 189 H 194 H
06/08/25 06/08/25 06/08/25
03:56 04:52 05:59
Glucose 196 H
POC Glucose 207 H 181 H 167 H
06/08/25
06:50
Glucose
POC Glucose 150 H
Patient Education
[2025-06-08] MEDS: NOVOLOG FLEXPEN SC ×3 (08:21→17:03)
[2025-06-08] MEDS: DESENEX/MITRAZOL/ZEASORB 1 APPLIC TOPICAL ×2 (08:21→19:12)
[2025-06-08] MEDS: MIRALAX 17 GRAMS TUBE (08:23)
[2025-06-08 08:28] LABS: Glucose - Point of Care 143 mg/dl (70-99)
[2025-06-08] MEDS: HEPARIN 5000 UNITS SC ×2 (08:34→15:52)
[2025-06-08] MEDS: KEPPRA 500 MG IV ×3 (08:35→19:12)
[2025-06-08] MEDS: ASPIRIN 325 MG PO (08:35)
[2025-06-08] MEDS: SOLU-MEDROL PF 40 MG IV (08:36)
[2025-06-08] MEDS: NSS (PRESERVATIVE FREE) 10 ML IV ×2 (08:36→19:12)
[2025-06-08] MEDS: PROTONIX IV 40 MG IV ×2 (08:36→19:12)
[2025-06-08] MEDS: VITAMIN C 500 MG TUBE (08:37)
[2025-06-08] MEDS: DEPACON 60 MG IV ×2 (08:59→19:12)
--- NOTE | 2025-06-08 09:00 | PTCARENOTE ---
Complete assessment done and documented. Pt does not respond to verbal stimulation. Sl decortication noted on L upper ext with painful stimuli, no movement of R upper or bilat lower exts to painful stimuli. Pupils +2 in size and react sluggishly
bilat. +cough noted with suctioning. Continuous EEG monitoring in progress. Dr Guy in to see pt and update given. Dr Guy assessed pt and reviewed EEGs. Pt to have CT of head tomorrow, Pt unable to have MRI with PM and being unconscious as per
MRI guidelines. Pt remains on ventilator with settings at AC 25, TV 450, 60%, peep 5, O2 sat=95-97%. Pt suctioned for mod amt of white sl tannish secretions. PEG with TFs nephro at 50 ml/hr and 25 ml water fl/hr. +BSs. Temp sensing fraser cath
intact, pt oliguric, yellow urine. Mouth care and fraser care done. Pt on Reg insulin drip, critical care gly protocol, prestnlly at 6units/hr.
[2025-06-08 09:17] LABS: Glucose - Point of Care 131 mg/dl (70-99)
--- NOTE | 2025-06-08 09:48 | W.PN.NEURO.1 ---
Today's Communication / Plan
-
Continue continuous EEG to monitor for seizure activity
Due to worsening changes by continuous EEG, add valproic acid 1000 mg IV followed by 1000 mg at bedtime
Continue Levetiracetam 500mg IV Q12h with a supplemental dose of 500mg IV after HD
Unable to obtain brain MRI, will obtain repeated CT of the head at 72 hours after onset of symptoms
DVT prophylaxis
Neuro Assessment/Plan
Assessment
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
Guillain-Wright� or CIDP, who presented from [facility] for cardiac arrest on 06/06/2025 now with seizure activity on Ceribell.
Head CT:
Ill-defined low signal intensity in the central aspect of the pili, which could be artifactual or secondary to age-indeterminate ischemia.
Chronic senescent changes.
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
Slight blurring of the karimi-white matter differentiation may reflect the early changes of hypoxic ischemic encephalopathy in the setting of cardiac arrest. Continued imaging follow-up can be performed as clinically indicated.
Continuous EEG started June 07, 2025. Worsening changes demonstrated
Impression: seizure activity in the setting of anoxic brain injury following cardiac arrest
Plan
Continue continuous EEG to monitor for seizure activity
Due to worsening changes by continuous EEG, add valproic acid 1000 mg IV followed by 1000 mg at bedtime
Continue Levetiracetam 500mg IV Q12h with a supplemental dose of 500mg IV after HD
Unable to obtain brain MRI, will obtain repeated CT of the head at 72 hours after onset of symptoms
DVT prophylaxis
Will follow
Subjective/Objective
Subjective Data
Date of Service: June 08, 2025
Patient unable to provide his own medical history
Objective Data
Vital Signs
Temp Pulse Resp BP Pulse Ox
37.6 C 100 25 151/66 96
06/08/25 07:35 06/08/25 07:57 06/08/25 07:57 06/06/25 22:30 06/08/25 09:40
Lab Results
06/08/25 03:56
06/08/25 03:56
PT 16.5 Sec (11.4-14.6) H 06/06/25 13:32
INR 1.31 06/06/25 13:32
APTT Cancelled 06/07/25 10:00
Sodium 129 mmol/L (135-145) L 06/08/25 03:56
Potassium 4.6 mmol/L (3.5-5.1) 06/08/25 03:56
BUN 70 mg/dl (9-20) H 06/08/25 03:56
Glucose 196 mg/dl (70-99) H 06/08/25 03:56
Calcium 9.6 mg/dl (8.4-10.2) 06/08/25 03:56
Phosphorus 3.3 mg/dl (2.5-4.5) 06/08/25 03:56
Lxh-T-Djvxevxosys Pept 5450 pg/ml 06/06/25 13:32
Patient Allergies
Iodinated Contrast Media Allergy (Verified 06/06/25 15:57)
Unknown
mesalamine Allergy (Verified 06/06/25 15:57)
Unknown
Penicillins Allergy (Verified 06/06/25 15:57)
Unknown/childhood; tolerates cephalosporins
Sulfa (Sulfonamide Antibiotics) Allergy (Verified 06/06/25 15:57)
Unknown
Review of Systems
-
Unable to obtain full review of systems at this time due to: Patient Intubation and Other (Unresponsiveness)
History Source: Patient
All other systems: Reviewed and negative
Physical Exam
-
General: No Apparent Distress, Intubated and Appears Stated Age
Eyes: Round OU and [place] Conjunctivae
HEENT: Anicteric and Moist Mucous Membranes
Neck: Full Range of Motion
Respiratory: No Dyspnea
Cardiac: No JVD
GI: Non-distended
Skin: Unremarkable
Extremities: No Clubbing, No Cyanosis and No Edema
Psych: Unable to Assess
Extended Neurological Exam
Mood & Affect: Unable to Assess
Attention Span & Concentration: Unresponsive to Verbal Stimuli; Negative Awake, Alert, Interactive or Unresponsive to Physical Stimuli (Minimal decorticate movement to nailbed pressure on the left hand)
Memory: Unable to Assess
Tremor: Hand Tremor Absent and Head Tremor Absent
Involuntary Movement: Other (Myoclonic movements of jaw)
Speech: Unable to Assess
Cranial Nerve II: Left Eye: Pupillary Reactivity Unremarkable, Pupillary Size Unremarkable and Unable to Assess Visual Rendon
Cranial Nerve II: Right Eye: Pupillary Reactivity Unremarkable, Pupillary Size Unremarkable and Unable to Assess Visual Rendon
Cranial Nerves III, IV, : Extraocular Movement: Absent Doll's Eyes and Unable to Assess (Ptosis)
Cranial Nerve V: Facial Sensation: Unable to Assess
Cranial Nerve VII: Facial Symmetry: Normal Facial Symmetry
Cranial Nerves IX, X: Palate Movement: Unable to Assess
Cranial Nerve XI: Shoulder Shrug: Unable to Assess
Cranial Nerve XII: Tongue Protusion: Unable to Assess
Muscle Strength, Overall: Negative Spontaneously Moves
Pronator Drift: Unable to Assess
Cold Sensation: Unable to Assess
Vibration Sensation: Unable to Assess
Touch Sensation: Negative Withdrawal to Pain
Coordination: Unable to Assess
Babinski Sign: Absent Bilaterally
Gait & Station: Unable to Assess
Data Reviewed
-
MRI Head: Ordered
EEG: Ordered and Report Reviewed
Labs: Report Reviewed
Past History
Past History
ED Past Medical History: COPD, GERD, NIDDM, Renal failure (kidney failure/hemodialysis) and Other (GBS, thrombocytopenia, left upper extremity DVT)
Social History
Tobacco: Non-smoker
Drug: None
Personal:
Living: snf
Family History
Family History: Other (Reviewed and noncontributory)
Medications
-
Medications:
Generic Name Dose Route Start Last Admin
Trade Name Freq PRN Reason Stop Dose Admin
Acetaminophen 650 mg 06/06/25 19:02
Acetaminophen (Oral Solution) 650 Mg/20.3 Ml Cup TUBE 07/04/25 19:01
Q4HPRN PRN
pain, fever
Albuterol/Ipratropium 3 ml 06/06/25 17:24 06/07/25 07:22
Ipratropium 0.5/Albuterol 3 Mg (3 Ml Ampul) INH 3 ml
R Q6HPRN PRN Administration
SOB
Protocol
Albuterol/Ipratropium 3 ml 06/07/25 08:00 06/08/25 07:49
Ipratropium 0.5/Albuterol 3 Mg (3 Ml Ampul) INH 3 ml
R QID KEVIN Administration
Protocol
Ascorbic Acid 500 mg 06/07/25 08:00 06/08/25 08:37
Ascorbic Acid 500 Mg Tablet TUBE 07/05/25 07:59 500 mg
DAILY KEVIN Administration
Aspirin 325 mg 06/07/25 08:00 06/07/25 08:16
Aspirin 325 Mg Tablet TUBE 07/05/25 07:59 325 mg
DAILY KEVIN Administration
Atorvastatin Calcium 40 mg 06/06/25 20:00 06/07/25 19:38
Atorvastatin (Lipitor) 40 Mg Tablet TUBE 07/04/25 19:59 40 mg
DAILY@2000 KEVIN Administration
Dextrose 12.5 grams 06/06/25 19:00
Dextrose 50% (0.5 Grams/Ml) 50 Ml Syringe IV 07/04/25 18:59
[id number] PRN
Blood Glucose < 70
Emollient Ointment 1 applic 06/07/25 09:56 06/07/25 13:22
Petrolatum/Mineral Oil (Hydrophor) Oint 100 Gram TOPICAL 07/05/25 09:55 1 applic
DAILYPRN PRN Administration
Dryness
Fentanyl Citrate 50 mcg 06/06/25 18:55
Fentanyl (50 Mcg/Ml) 100 Mcg/2 Ml Ampul IV 06/20/25 18:54
[id number] PRN
see protocol
Protocol
Heparin Sodium 5,000 units 06/07/25 16:00 06/08/25 08:34
Heparin 5,000 Units/Ml 1 Ml Vial SC 07/05/25 15:59 5,000 units
Q8 KEVIN Administration
Piperacillin Sod/Tazobactam Sod 2.25 grams in 50 mls @ 100 mls/hr 06/06/25 22:00 06/08/25 05:01
Zosyn IV 50 mls
Q8H KEVIN Administration
Insulin Human Regular 100 units in 100 mls @ 0 mls/hr 06/06/25 19:00 06/08/25 03:58
Novolin R Insulin Infusion IV 100 mls
PER PROTOCOL KEVIN Administration
Protocol
Per Protocol
Norepinephrine Bitartrate 4 mg in 250 mls @ 0 mls/hr 06/06/25 21:30 06/06/25 21:24
Levophed IV 250 mls
PER PROTOCOL KEVIN Administration
Protocol
Per Protocol
Valproate Sodium 1,000 mg/ 60 mls @ 57.5 mls/hr 06/08/25 20:00
Sodium Chloride IV 07/06/25 19:59
Q12 KEVIN
Insulin Aspart 0 units 06/07/25 07:30 06/08/25 08:21
Insulin Aspart (Novolog) 100 Units/Ml 3 Ml Flexpen SC 07/05/25 07:29 Not Given
AC KEVIN
Protocol
Insulin Aspart 8 units 06/08/25 12:00
Insulin Aspart (Novolog) 100 Units/Ml 3 Ml Flexpen SC 07/06/25 11:59
Q6 KEVIN
Levetiracetam 500 mg 06/07/25 20:00 06/08/25 08:35
Levetiracetam (100 Mg/Ml) 500 Mg/5 Ml Vial IV 07/05/25 19:59 500 mg
Q12 KEVIN Administration
Levetiracetam 500 mg 06/08/25 18:00
Levetiracetam (100 Mg/Ml) 500 Mg/5 Ml Vial IV 06/08/25 18:01
ONCE ONE
Levothyroxine Sodium 150 mcg 06/07/25 06:00 06/08/25 05:01
Levothyroxine 150 Mcg Tablet TUBE 07/05/25 05:59 150 mcg
DAILY@0600 KEVIN Administration
Mannitol 12.5 grams 06/08/25 08:00
Mannitol 25% (12.5 Grams/50 Ml) Vial IV 06/08/25 23:59
HD-Q1HPRN PRN
SBP < 90 mmHg
Methylprednisolone Sodium Succinate 40 mg 06/07/25 08:00 06/08/25 08:36
Methylprednisolone Pf 40 Mg/Ml Vial IV 07/05/25 07:59 40 mg
DAILY KEVIN Administration
Metoprolol Tartrate 25 mg 06/06/25 20:00 06/06/25 20:17
Metoprolol 25 Mg Regular Release Tablet TUBE 07/04/25 19:59 25 mg
On Hold: 06/06/25 21:18 BID KEVIN Administration
Miconazole Nitrate 0 applic 06/07/25 20:00 06/08/25 08:21
Miconazole Powder Bottle TOPICAL 07/05/25 19:59 1 applic
BID KEVIN Administration
Cabergoline 0.5 Mg 0 mg 06/08/25 08:00
Tablet - 1 Tablet ( TUBE 07/06/25 07:59
0.5mg) Po Q4d Q4D KEVIN
Pantoprazole Sodium 40 mg 06/06/25 20:00 06/08/25 08:36
Pantoprazole Sodium 40 Mg/10 Ml Vial IV 07/04/25 19:59 40 mg
BID KEVIN Administration
Polyethylene Glycol 17 grams 06/07/25 08:00 06/08/25 08:23
Polyethylene Glycol Powder 17 Grams Packet TUBE 07/05/25 07:59 17 grams
DAILY KEVIN Administration
Primidone 50 mg 06/06/25 22:00 06/07/25 21:58
Primidone 50 Mg Tablet TUBE 07/04/25 21:59 50 mg
HS KEVIN Administration
Sodium Chloride 0 flush 06/06/25 17:00
Sodium Chloride 0.9% (Flush) Syringe IV 07/04/25 16:59
PER PROTOCOL KEVIN
Sodium Chloride 10 ml 06/06/25 20:00 06/08/25 08:36
Sodium Chloride 0.9% (Preservative Free) 10 Ml Vial IV 07/04/25 19:59 10 ml
BID KEVIN Administration
Sodium Chloride 10 ml 06/08/25 08:00
Sodium Chloride (4 Meq/Ml) 30 Ml Vial *For Hemodialysis* IV 06/08/25 23:59
HD-Q1HPRN PRN
cramps
[2025-06-08 10:09] LABS: Glucose - Point of Care 164 mg/dl (70-99)
--- NOTE | 2025-06-08 11:03 | EEGC.RPT ---
Continuous EEG Report
Recording
Start Date of Data Reviewed: 06/08/25
Start Time of Data Reviewed: 07:00
End Date of Data Reviewed: 06/09/25
End Time of Data Reviewed: 07:00
Type of EEG: Continuous
Done with Video Recording: Yes
Study Sequence: Continuation of ongoing Study
Electrocardiogram: Unremarkable
Report
24 HOUR CONTINUOUS EEG REPORT
24 HOUR CONTINUOUS EEG INTERPRETATION:
Severely becoming moderately abnormal EEG for age due to:
Isoelectric burst suppression with independent bilateral generalized lateralizing periodic discharges becoming diffuse minimally differentiated beta activity
CLINICAL CORRELATION:
This study was suggestive of moderate to severe bihemispheric cortical dysfunction with independent focal abnormalities bilaterally frontally, less obvious during progression of the study. Overall, the study appears to have improved compared with
the prior day, remaining abnormal.
Clinical correlation is advised.
METHODS:
A 21 channel digitized electroencephalogram (EEG) was performed at the bedside in the intensive care unit. The 10/20 international system of electrode placement was used. ECG was monitored. Persyst quantitative analysis was performed.
ELECTROENCEPHALOGRAPHER IMPRESSION(S):
Quality
Good
Background
Maximum: No specific background demonstrated
Anterior-posterior gradient: Absent
Sleep
Not demonstrated
Abnormal EEG activity
As the record opened, there were isoelectric suppressions lasting for approximately 3 seconds were interrupted by independent bilateral (F3 maximal, F4 maximal) frontal low to medium amplitude semirhythmic 0.25-second focal slowing bursts. This
persisted until page 4851 at which time the record changed to diffuse beta activity and rare bursts of diffuse theta activity lasting for 1 second were demonstrated resolving after approximately 1 hour.
Electrocardiogram
Regular rhythm
--- NOTE | 2025-06-08 11:20 | W.PN.NEPH.PH ---
Today's Communication / Plan
-
HD today
Assessment/Plan
-
Impression:
Status post PEA event on dialysis today at [place] [facility]
Leukocytosis with suspected aspiration event
ESRD Friday and Friday
Profound lactic acidosis
Vent dependent respiratory failure following PEA event
Hx of Complicated pneumonia -on pneumonia with possible large parapneumonic effusion, non-septic (lung atelectasis)/ 05/20
Eric Wright�
Insulin-dependent diabetes
PEG
CHF
Hyperphosphatemia
CAD
Hypothyroidism
Plan:
s/p PEA arrest SUPERVISING CHEF
remains on vent and unresponsive
bp stable with out pressor
HD planned today as per schedule
meds adjusted renally
Patient appears to have suffered an anoxic event given severely compromised neurological status
Can maintain sevelamer via PEG once feedings resumed
guarded prognosis
reviewed with family
-
-
Date of Service: June 08, 2025
CC / HPI / ROS
-
Chief Complaint:
ESRD
History of Present Illness:
ESRD Friday
Hemodynamically stable off pressors
Remains intubated and nonresponsive off sedation (Fio2 at 40%)
Remains on heparin drip
White blood cell count better at 47.3
hb decreasing 9.3
Review of Systems:
Guerra catheter 290cc
Intubated and nonresponsive off sedation
No fevers
on TF
Labs
-
Labs:
WBC 47.3 10^3/uL (4.8-10.8) H* 06/08/25 03:56
RBC 3.27 10^6/uL (4.70-6.10) L 06/08/25 03:56
Hgb 9.3 g/dL (13.0-18.0) L 06/08/25 03:56
Hct 27.9 % (39.0-52.0) L 06/08/25 03:56
Plt Count 257 10^3/uL (130-400) 06/08/25 03:56
Sodium 129 mmol/L (135-145) L 06/08/25 03:56
Potassium 4.6 mmol/L (3.5-5.1) 06/08/25 03:56
Chloride 98 mmol/L (98-107) 06/08/25 03:56
Carbon Dioxide 21 mmol/L (22-30) L 06/08/25 03:56
BUN 70 mg/dl (9-20) H 06/08/25 03:56
Creatinine 3.0 mg/dL (0.7-1.3) H 06/08/25 03:56
eGFR 21.13 06/08/25 03:56
Glucose 196 mg/dl (70-99) H 06/08/25 03:56
Calcium 9.6 mg/dl (8.4-10.2) 06/08/25 03:56
Phosphorus 3.3 mg/dl (2.5-4.5) 06/08/25 03:56
Pxa-J-Oujkyjcwkan Pept 5450 pg/ml 06/06/25 13:32
Albumin 2.9 g/dl (3.5-5.0) L 06/08/25 03:56
Physical Exam
-
Vital Signs:
Vital Signs
Temp Pulse Resp BP Pulse Ox
99.7 F 97 25 151/66 97
06/08/25 07:35 06/08/25 11:17 06/08/25 11:17 06/06/25 22:30 06/08/25 11:17
Cardiovascular:: Regular rate and rhythm
Respiratory:: Bilateral: Coarse
Lung Excursion:: Normal
Abdomen:: Nontender and Soft
Bowel Sounds:: Decreased
Extremity Edema:: +1: Bilateral:
Guerra Catheter: Yes
Other Findings::
General: Intubated nonsedated nonresponsive
[2025-06-08 12:11] LABS: Glucose - Point of Care 151 mg/dl (70-99)
[2025-06-08 12:25] LABS: Glucose - Point of Care 162 mg/dl (70-99)
--- NOTE | 2025-06-08 12:32 | W.PN.INTV ---
Today's Communication / Plan
Recommendations
- Continue current ventilator settings
- Continue EEG, insulin infusion
- Stay off all sedation
Assessment
-
Patient is a 74-year-old gentleman with complex past medical history including chronic hypoxic and hypercapnic respiratory failure in the setting of neuromuscular weakness, end-stage renal disease on hemodialysis, on nightly BiPAP for suspected
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 45 minutes prior to dialysis finishing patient developed cardiac arrest. As per EMS records there were no preceding symptoms or distress noted. CPR was
started right away and EMS was called. 10 minutes into CPR EMS arrived and patient was noted to be in PEA with paced rhythm on the monitor without pulse. Patient received 3 doses of epi and CPR was continued for a total of 22 minutes following
which ROSC was achieved. Patient was intubated in the field and brought to the emergency room. Initial blood gas in the emergency room showed a pH of 7 with lactate up to 8 and hypercapnia. Patient started to move around in the emergency room,
briefly opened eyes, received as needed benzodiazepine and later propofol infusion. In view of cardiac arrest, patient is getting admitted to ICU and automotive lube technician consultation was requested for further input.
06/08, over review. Current infusions only insulin. MAP 65, not requiring any pressor support. Tube feeding infusing at goal. Blood gas 7.30 7/39/113, saturating 99%, vent settings volume AC 450/25/40%/5. No significant endotracheal secretions.
Afebrile.
#1. Cardiac arrest with shock
- Witnessed, during dialysis, no preceding symptoms reported.
- Per EMS records, CPR started at 1240, ACLS initiated at 1250, epi x 3 given, ROSC achieved at 1302. Total time under CPR appears to be 22 minutes. Rhythm noted to be paced/PEA.
- ? Etiology. With patient's known neuromuscular weakness, hypercapnic respiratory failure could certainly have contributed, Aspiration pneumonia noted on CT. Cardiac etiology also in differential diagnosis. EKG without acute ischemic changes
and the first troponin was negative. Pulmonary embolism ruled out with negative CT-PE study.
- Patient had GCS 3 on arrival, subsequently patient briefly opened eyes and was agitated, target normothermia
- Patient having quivering of chin, seizures noted on EEG
- 06/07 was hypotensive requiring pressor support, shock likely related to cardiac arrest as well as bilateral aspiration pneumonia. Off pressors now.
#2. Acute on chronic hypoxic and hypercapnic respiratory failure with Aspiration pneumonia
- At baseline patient is on home oxygen at 2 L and also has chronic compensated hypercapnia and due to neuromuscular weakness on nightly BiPAP therapy
- In the setting of cardiac arrest. Patient was intubated in the field by EMS.
- Known history of neuromuscular weakness with chronic compensated hypercapnia, initial ABG 7.0/, consistent with acute on chronic respiratory acidosis as well as metabolic acidosis.
- CT-PE suggestive of aspiration
- Continue Broad spectrum Antibiotics, added steroids in view of severity of PNA
- High peak pressures on ventilator all the way up to 50 with the plat of 30. Bilateral rhonchi on exam. Lowered tidal volume to 450, initiate bronchodilation with scheduled DuoNeb 4 times daily, initiate Solu-Medrol 40 mg IV daily. Decreased
lung compliance.
- Continue tube feeding
#3. Lactic acidosis.
- Lactate elevated was at 8, as a result of cardiac arrest. Blood gas was 7.0/, suggestive of mixed metabolic and respiratory acidosis
- Resolved, off bicarb drip now, no longer hyperventilating via mechanical ventilation.
- Nephrology service on case, anticipate additional HD later today
#4. ESRD on HD
- Nephrology service on case.
#5. 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
- NIF testing was -25 to -30, very weak cough with poor expectoration of secretions during last admission
- At baseline has chronic compensated hypercapnia suggestive of underlying hypoventilation
- Patient has been on BiPAP nightly
- Prior h/o Tracheostomy earlier this year
- This is patient's fourth intubation during this year, with underlying neuromuscular weakness and now cardiac arrest, high likelihood of patient requiring long-term ventilatory support
#6. Prior h/o DVT/PE
- Has not been on anticoagulation currently
- Was empirically started on heparin pending CT PE. No evidence of pulmonary embolism noted
- DC heparin drip and switch to subcu heparin
#7. Acute encephalopathy, suspect Anoxic with seizures
- Patient off sedation since 06/07. Eyes are open however does not make any eye contact, no meaningful communication. Absent to minimal reflexes. Patient has weak gag intact, breathing at set rate. Essentially unresponsive.
- Neurology service on case, EEG suggestive of seizure activity, on Keppra and Valproic acid IV.
Other medical diagnoses:
- Insulin-dependent diabetes mellitus, currently on insulin infusion
- Chronic dysphagia, had been on tube feeding via PEG tube. Tube feeding at goal
- Hypothyroidism
- Hypertension
- Macular degeneration
- S/p pacemaker placement. Pacer interrogation for further evaluation.
- Pituitary adenoma
Critical Care time 45 mins -- The patient is admitted for acute critical illness for the treatment of vital organ failure and/or prevention of further life-threatening conditions. Total care includes time spent in review of history, physical exam,
medications, hemodynamic/ventilator parameters, laboratory data, imaging and discussion with house staff, pharmacy, respiratory therapy, field sales representative, and nursing.
Prognosis is poor
Data:
CT Head 05/2025: Ill-defined low signal intensity in the central aspect of the pili, which could be artifactual or secondary to age-indeterminate ischemia.
Chronic senescent changes.
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
Slight blurring of the karimi-white matter differentiation may reflect the early changes of hypoxic ischemic encephalopathy in the setting of cardiac arrest. Continued imaging follow-up can be performed as clinically indicated.
CXR 05/2025: Lines and tubes, as above.
Hazy opacities within the left lung, more confluent on the left lung base with obscuration of the hemidiaphragm. Findings again may represent a combination of atelectasis and pleural fluid, though improved compared to earlier recent chest x-rays.
Subjective Dataa
Subjective Data
Date of Service:
Date of Service: June 08, 2025
Subjective:
Patient currently intubated, mechanically ventilated, off sedation
Review of Systems
General: Unobtainable - Pat Unresp
Objective Data
Data Reviewed
Vital Signs / I&O / Oxygen:
Vital Signs
Temp Pulse Resp BP Pulse Ox
100.2 F 97 25 151/66 94
06/08/25 11:21 06/08/25 11:17 06/08/25 11:17 06/06/25 22:30 06/08/25 11:20
Intake and Output
06/07/25 06/08/25 06/09/25
06:59 06:59 06:59
Intake Total 1735.7 / 1829.2 2210.2 / 2293.2 164 / 164
Output Total 66 / 75 315 / 325 20 / 20
Balance 1669.7 / 1754.2 1895.2 / 1968.2 144 / 144
SaO2 [A/C] 97
SaO2 94
Physical Exam
General: Comfortable
HEENT: Normocephalic
Cardiovascular: S1-S2
Respiratory: Crackles and Rhonchi
GI: Soft and Non Distended
Neurology: Other (Eyes open, does not make eye contact, no meaningful communication)
Skin: Warm
Labs/Micro/Reports
Lab Data
06/08/25 03:56
06/08/25 03:56
Laboratory Results
06/08/25
03:56
pH 7.37
pCO2 39
pO2 113 H
HCO3 22.5
O2 Delivery Level
Microbiology
06/06/25 23:15 Nose Nasal Screen MRSA (PCR) - Final
MRSA not detected - performed by PCR methodology.
--- NOTE | 2025-06-08 12:40 | PTCARENOTE ---
Fio2 decreased to 40%, o2 sat=99%, pt suctioned for mod amt sevilla/white secretions. R kajal cruz'd, 160/40. Dr Cowart in to see pt, and also spoke with family. Bedside HD starting now. Insuliln drip now 8 unit/hr, q 2 hr checks.
[2025-06-08] MEDS: NOVOLOG FLEXPEN 8 UNITS SC ×3 (12:47→23:01)
--- NOTE | 2025-06-08 13:05 | W.PN.HOSP.TC ---
Today's Communication/Plan
-
Monitor vital signs see plan
Continue with Debbi, added valproate
HD per nephrology
on insuin gtt
repeat CT per neurology
off sedation
discussed with family
Assessment / Plan
Assessment / Plan
HEENT: Normocephalic
Cardiovascular: S1/S2,RRR
Respiratory: Rhonchi, ventilated breaths
GI: Soft and Non Distended
Neurology: AAox0
Psych: sedated
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
Acute on chronic hypoxic respiratory failure
Intubated, vent settings per mac developer
- Leukocytosis
- Chest x-ray shows hazy opacities in the left lung, more confluent in the left lung base with obscuration of the hemidiaphragm which represent atelectasis versus pleural fluid
-CT head shows small chronic infarct in the left frontal lobe
-CT neg for PE
-EKG shows atrial paced rhythm with prolonged AV conduction.
-Hold Bumex
cw abx
Patient CT scan head suggestive of anoxic injury, poor prognosis for meaningful neurological recovery. On continuous EEG. On Keppra, now added valproate. Neurology following. Unable to obtain MRI per neurology due to pacemaker. Will need repeat
CT scan per neurology. Continuous EEG
Discussed with family at length as well. Prognosis appears guarded.
Suspect sepsis was present on admission secondary to aspiration pneumonia
Monitor, cw abx
lactic acidosis
likely post PEA arrest
monitor
Elevated troponin likely secondary to cardiac arrest
Monitor
# Hypokalemia
- Do not replete because ESRD patient
History of Pseudomonas/MSSA pneumonia
COPD/ Chronic respiratory failure on 2 L baseline
ESRD on hemodialysis Friday, Friday, Friday
- Nephrology following. HD per nephrology
- Continue sevelamer
Hyponatremia
Essential hypertension
-continue hydralazine
History of pacemaker
- Interrogate pacemaker
Type 2 diabetes
Now on insulin drip. Monitor
History of PE/DVT
Guillain-Wright� status post PEG tube
On tube feed
History of CHF
- Continue metoprolol
Hypothyroidism
- Continue levothyroxine
Pituitary adenoma
- Continue cabergoline
Anxiety/depression
- Hold Lexapro
Full code
DVT prophylaxis�heparin
N.p.o.
Total Critical Care Time__44___ minutes. I was immediately available to the patient and staff. I personally examined, reviewed labs, diagnostic images/reports, interpretations, treatment plans, discussed patient care with other providers and
family or caregivers (if patient is unable to make decisions), entered orders as appropriate and documented the medical record.
Anticipated Discharge: > 48 hours
Subjective/Interval History
-
Date of Service: June 08, 2025
Intubated
Objective Data
-
Labs:
Laboratory Results
06/08/25
03:56
WBC 47.3 H*
Hgb 9.3 L
Hct 27.9 L
Plt Count 257
HCO3 22.5
Sodium 129 L
Potassium 4.6
Chloride 98
Carbon Dioxide 21 L
BUN 70 H
Creatinine 3.0 H
Glucose 196 H
Calcium 9.6
Total Bilirubin 0.6
AST 60 H
ALT 72 H
Alkaline Phosphatase 162 H
Vital Signs:
Vital Signs
Temp Pulse Resp BP Pulse Ox
100.2 F 97 25 151/66 94
06/08/25 11:21 06/08/25 11:17 06/08/25 11:17 06/06/25 22:30 06/08/25 11:20
I&O
06/07/25 06/08/25 06/09/25
06:59 06:59 06:59
Intake Total 1735.7 / 1829.2 2210.2 / 2293.2 164 / 164
Output Total 66 / 75 315 / 325
Balance 1669.7 / 1754.2 1895.2 / 1968.2 144 / 144
[2025-06-08 14:09] LABS: Glucose - Point of Care 129 mg/dl (70-99)
--- NOTE | 2025-06-08 16:05 | W.PN.NEPH.HD ---
Assessment
-
pt seen during HD
vitals stable, sbp 120s, mild tachy
UF as tolerated, on TF
CVC functions well
Progress Note - Hemodialysis
-
Date of Service: June 08, 2025
Duration: 30 minutes and 3 hours
Potassium Bath: 3
Calcium Bath: 2.5
Opti-Dialyzer: 160
Ultrafiltration: Other (2.5-3kg)
Blood Flow: 400
Dialysate Flow: 600
Heparin: no
EPO: no
[2025-06-08] MEDS: HEPARIN 3700 UNITS INTRACATH (16:08)
[2025-06-08 16:10] LABS: Glucose - Point of Care 107 mg/dl (70-99)
[2025-06-08 17:11] LABS: Glucose - Point of Care 118 mg/dl (70-99)
--- NOTE | 2025-06-08 17:26 | PTCARENOTE ---
Dialysis completed 3.5 hrs. HR now 109, BP stable 114/40. Mouth care, CHG wash, and cristino care done. Pt turned to side, upper arms on pillows. TBs con't at goal rate/flush. Insulin drip presently at 3.5 units/hr. Pt's family back to room and updated.
[2025-06-08 18:11] LABS: Glucose - Point of Care 137 mg/dl (70-99)
[2025-06-08 19:10] LABS: Glucose - Point of Care 143 mg/dl (70-99)
[2025-06-08] MEDS: LIPITOR 40 MG TUBE (19:12)
[2025-06-08] MEDS: TYLENOL ORAL SOLUTION 650 MG TUBE (19:30)
[2025-06-08 20:11] LABS: Glucose - Point of Care 142 mg/dl (70-99)
--- NOTE | 2025-06-08 20:49 | PTCARENOTE ---
Received pt from previous RN. Pt unresponsive, pupils b/l 2 sluggish, + gag, chin and right leg tremors. Continuous EEG. Sinus tach/NSR, apaced on the monitor. ETT #7.5 @ 25 cm, AC 25/450/40%/5, lungs coarse/rhonchi. TF Nepro @ 50 ml/hr, 25 ml water
flush. Guerra in place. Insulin gtt per protocol (see worklist). Temp 101.1, PRN Tylenol given (see MAR). Walling zeroed and transduced. Family at bedside. Safe environment maintained.
[2025-06-08 21:06] LABS: Glucose - Point of Care 139 mg/dl (70-99)
[2025-06-08] MEDS: MYSOLINE 50 MG TUBE (21:25)
[2025-06-08] MEDS: ATIVAN 1 MG IV (21:40)
[2025-06-08] MEDS: NSS (PRESERVATIVE FREE) 0.5 ML IV (21:41)
--- NOTE | 2025-06-08 22:01 | PTCARENOTE ---
ICU CERT OCCUPATIONAL THERAPY ASST notified, chin tremor and rhythmic movement of tongue, right leg reflexing more frequently. Ativan x1 ordered (see MAR).
[2025-06-08 23:12] LABS: Glucose - Point of Care 130 mg/dl (70-99)
[2025-06-09] MEDS: HEPARIN 5000 UNITS SC ×2 (00:19→08:30)
[2025-06-09] MEDS: TYLENOL ORAL SOLUTION 650 MG TUBE ×2 (00:28→05:15)
--- NOTE | 2025-06-09 00:40 | PTCARENOTE ---
Systems reviewed, no new changes in assessment. Safe environment maintained.
[2025-06-09 01:16] LABS: Glucose - Point of Care 102 mg/dl (70-99)
[2025-06-09 02:11] LABS: Glucose - Point of Care 95 mg/dl (70-99)
[2025-06-09 03:06] LABS: Glucose - Point of Care 110 mg/dl (70-99)
[2025-06-09 04:00] LABS: Glucose - Point of Care 144 mg/dl (70-99)
[2025-06-09 04:01] LABS: B.E. 2.4 mmol/L; HCO3 27.2 mmol/L (21-28); O2 Saturation % 98.7 % (94-98); PCO2 42 mmHg (35-48); PO2 86 mmHg (83-108)
--- NOTE | 2025-06-09 04:09 | PTCARENOTE ---
Systems reviewed, no new changes in assessment. AM labs provided. Insulin gtt off at 0200, following protocol (see worklist). Safe environment maintained.
[2025-06-09 04:30] LABS: Blood Urea Nitrogen 47 mg/dl (9-20); Calcium 8.8 mg/dl (8.4-10.2); Carbon Dioxide 25 mmol/L (22-30); Chloride 95 mmol/L (98-107); Estimated Creatinine Clearance 39 ml/min; Glucose 132 mg/dl (70-99); Hematocrit 27.3 % (39.0-52.0); Hemoglobin 9.1 g/dL (13.0-18.0); Magnesium 2.2 mg/dl (1.6-2.3); Mean Corp Hgb Conc. 33.3 g/dL (33.0-37.0); Mean Corpuscular Volume 85.8 fL (80.0-94.0); Platelet Count 253 10^3/uL (130-400); Potassium 4.5 mmol/L (3.5-5.1); Red Cell Dist. Width 16.0 % (11.5-14.5); Sodium 131 mmol/L (135-145); Triglycerides 99 mg/dl (10-149); eGFR 32.42
[2025-06-09] MEDS: ZOSYN 50 IV (05:00)
[2025-06-09] MEDS: SYNTHROID TUBE (05:00)
[2025-06-09 05:09] LABS: Glucose - Point of Care 172 mg/dl (70-99)
[2025-06-09] MEDS: SYNTHROID 150 MCG TUBE (05:16)
[2025-06-09] MEDS: CARDENE 200 IV (05:25)
--- NOTE | 2025-06-09 05:29 | PTCARENOTE ---
ICU CHIEF INVESTIGATOR notified, pt SBP 175-180s MAP 90s, Cardene gtt added (see worklist and MAR).
[2025-06-09 06:00] VITALS: BMI 32.3
[2025-06-09] MEDS: NOVOLOG FLEXPEN 8 UNITS SC (06:06)
[2025-06-09 06:17] LABS: Glucose - Point of Care 207 mg/dl (70-99)
[2025-06-09 07:09] LABS: Glucose - Point of Care 199 mg/dl (70-99)
--- NOTE | 2025-06-09 07:30 | PTCARENOTE ---
Received patient A&Ox0, unresponsive, RASS -5 w/o any sedations, Continuous EEG, ET to Vent @FiO2 40%, ST w/ PACs, BP at goal range, on Cardene drip @5mg/hr and Insulin drip @3unit/hr, PEG infusing Tube feeding @50mL/hr, Guerra in place draining
cloudy yellow urine with sediments.
Pending CT Head.
[2025-06-09] MEDS: DUONEB 3 ML INH ×2 (08:05→10:53)
[2025-06-09 08:11] LABS: Glucose - Point of Care 186 mg/dl (70-99)
--- NOTE | 2025-06-09 08:18 | PN.DE.MGMTRT ---
Insulin Management
- -
06/09/2025 Diabetes Management Consult Follow up
Patient admitted 06/06 s/p cardiac arrest at group home during dialysis. PMH diabetes, thrombocytopenia, pseudomonas pneumonia, l upper ext DVT, renal failure - dialysis, COPD, reflux, Guillian [place], PEG tube, CHF hypothyroid, dysphagia, HTN,
pituitary adenoma, macular degeneration. Prior to admission was receiving lantus 24 units HS with Regular 4 units BID and ss 2 to 10 units. A1C on admission 7.1%, cr 2.6, eGFR 25.09 today.
Patient is intubated, sedated, patient is critically ill; information obtained from patient chart and patient nurse. Patient currently receiving critical care glycemic protocol insulin infusion requiring 4 to 4.5 units last evening, infusion off @
2am for glucose 110. Infusion resumed at 6AM at 3 to 6 units of insulin per hour. Tube feeds continue @ 50 per hour, 8 units novolog sq provided Q6 hours. Will decrease Q6 hour novolog to 5 units sq.
Discussed with nurse.
Will follow
Diabetes History
- -
Type of Diabetes: 2 requiring insulin
Pre-Admission Diabetes Regimen
06/09/25
03:42
Creatinine 2.1 H
Lab Results
Hemoglobin A1c Cancelled 06/06/25 19:00
Insulin Pump Settings
IP Diabetes Regimen
06/08/25 06/08/25 06/08/25
08:17 09:05 09:57
Glucose
POC Glucose 143 H 131 H 164 H
06/08/25 06/08/25 06/08/25
12:00 12:13 13:58
Glucose
POC Glucose 151 H 162 H 129 H
06/08/25 06/08/25 06/08/25
15:59 17:00 18:00
Glucose
POC Glucose 107 H 118 H 137 H
06/08/25 06/08/25 06/08/25
18:58 19:58 20:55
Glucose
POC Glucose 143 H 142 H 139 H
06/08/25 06/09/25 06/09/25
22:59 01:04 02:00
Glucose
POC Glucose 130 H 102 H 95
06/09/25 06/09/25 06/09/25
02:54 03:42 03:48
Glucose 132 H
POC Glucose 110 H 144 H
06/09/25 06/09/25 06/09/25
04:56 06:03 06:58
Glucose
POC Glucose 172 H 207 H 199 H
06/09/25
08:00
Glucose
POC Glucose 186 H
Patient Education
[2025-06-09] MEDS: NOVOLOG FLEXPEN 4 UNITS SC ×2 (08:27→12:19)
[2025-06-09] MEDS: MIRALAX 17 GRAMS TUBE (08:29)
[2025-06-09] MEDS: ASPIRIN 325 MG TUBE (08:29)
[2025-06-09] MEDS: NSS (PRESERVATIVE FREE) 10 ML IV (08:29)
[2025-06-09] MEDS: VITAMIN C 500 MG TUBE (08:29)
[2025-06-09] MEDS: SOLU-MEDROL PF 40 MG IV (08:30)
[2025-06-09] MEDS: PROTONIX IV 40 MG IV (08:30)
[2025-06-09] MEDS: KEPPRA 500 MG IV (08:30)
[2025-06-09] MEDS: DEPACON 60 MG IV (08:31)
[2025-06-09] MEDS: DESENEX/MITRAZOL/ZEASORB 1 APPLIC TOPICAL (08:31)
--- NOTE | 2025-06-09 09:09 | W.PN.NEURO.1 ---
Today's Communication / Plan
-
Continue continuous EEG to monitor for seizure activity
Continue newly added valproic acid 1000 mg IV followed by 1000 mg at bedtime
Continue Levetiracetam 500mg IV Q12h with a supplemental dose of 500mg IV after HD
Unable to obtain brain MRI, will obtain repeated CT of the head
Neuro Assessment/Plan
Assessment
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
Guillain-Wright� or CIDP, who presented from [facility] for cardiac arrest on 06/06/2025 with seizure activity on [place].
Head CT:
Ill-defined low signal intensity in the central aspect of the pili, which could be artifactual or secondary to age-indeterminate ischemia.
Chronic senescent changes.
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
Slight blurring of the karimi-white matter differentiation may reflect the early changes of hypoxic ischemic encephalopathy in the setting of cardiac arrest. Continued imaging follow-up can be performed as clinically indicated.
Continuous EEG started June 07, 2025. Worsening changes demonstrated, improved June 09, 2025
Valproic acid started June 08, 2025 due to worsening EEG changes
Impression:
seizure activity in the setting of anoxic brain injury following cardiac arrest
Prognosis is now poor for meaningful neurological recovery as the patient is now beyond 3 days since onset of injury and there has been no meaningful neurological recovery, and EEG does not show significant variability although improved by
continuous EEG monitoring, mildly.
Plan
Continue continuous EEG to monitor for seizure activity
Continue newly added valproic acid 1000 mg IV followed by 1000 mg at bedtime
Continue Levetiracetam 500mg IV Q12h with a supplemental dose of 500mg IV after HD
Unable to obtain brain MRI, will obtain repeated CT of the head
DVT prophylaxis
Will follow
Subjective/Objective
Subjective Data
Date of Service: June 09, 2025
Objective Data
Vital Signs
Temp Pulse Resp BP Pulse Ox
38.2 C H 104 22 151/66 91
06/09/25 03:09 06/09/25 08:07 06/09/25 08:07 06/06/25 22:30 06/09/25 08:08
Lab Results
06/09/25 03:42
06/09/25 03:42
PT 16.5 Sec (11.4-14.6) H 06/06/25 13:32
INR 1.31 06/06/25 13:32
APTT Cancelled 06/07/25 10:00
Sodium 131 mmol/L (135-145) L 06/09/25 03:42
Potassium 4.5 mmol/L (3.5-5.1) 06/09/25 03:42
BUN 47 mg/dl (9-20) H 06/09/25 03:42
Glucose 132 mg/dl (70-99) H 06/09/25 03:42
Calcium 8.8 mg/dl (8.4-10.2) 06/09/25 03:42
Phosphorus 3.3 mg/dl (2.5-4.5) 06/08/25 03:56
Wbt-U-Uhwnrkqkfpj Pept 5450 pg/ml 06/06/25 13:32
Patient Allergies
Iodinated Contrast Media Allergy (Verified 06/06/25 15:57)
Unknown
mesalamine Allergy (Verified 06/06/25 15:57)
Unknown
Penicillins Allergy (Verified 06/06/25 15:57)
Unknown/childhood; tolerates cephalosporins
Sulfa (Sulfonamide Antibiotics) Allergy (Verified 06/06/25 15:57)
Unknown
Physical Exam
-
General: No Apparent Distress, Intubated and Appears Stated Age
Eyes: Round OU and [place] Conjunctivae
HEENT: Anicteric and Moist Mucous Membranes
Neck: Full Range of Motion
Respiratory: No Dyspnea
Cardiac: No JVD
GI: Non-distended
Skin: Unremarkable
Extremities: No Clubbing, No Cyanosis and No Edema
Psych: Unable to Assess
Extended Neurological Exam
Mood & Affect: Unable to Assess
Attention Span & Concentration: Unresponsive to Verbal Stimuli and Unresponsive to Physical Stimuli; Negative Awake, Alert or Interactive
Memory: Unable to Assess
Tremor: Hand Tremor Absent and Head Tremor Absent
Involuntary Movement: Other (Myoclonic movements of jaw with some tongue thrusting, medium amplitude, nearly continuous)
Speech: Unable to Assess
Cranial Nerve II: Left Eye: Pupillary Reactivity Unremarkable, Pupillary Size Unremarkable and Unable to Assess Visual Rendon
Cranial Nerve II: Right Eye: Pupillary Reactivity Unremarkable, Pupillary Size Unremarkable and Unable to Assess Visual Rendon
Cranial Nerves III, IV, : Extraocular Movement: Absent Doll's Eyes and Unable to Assess (Ptosis)
Cranial Nerve V: Facial Sensation: Unable to Assess
Cranial Nerve VII: Facial Symmetry: Normal Facial Symmetry
Cranial Nerves IX, X: Palate Movement: Unable to Assess
Cranial Nerve XI: Shoulder Shrug: Unable to Assess
Cranial Nerve XII: Tongue Protusion: Unable to Assess
Muscle Strength, Overall: Negative Spontaneously Moves
Pronator Drift: Unable to Assess
Cold Sensation: Unable to Assess
Vibration Sensation: Unable to Assess
Touch Sensation: Negative Withdrawal to Pain
Coordination: Unable to Assess
Babinski Sign: Absent Bilaterally
Gait & Station: Unable to Assess
Past History
Past History
ED Past Medical History: COPD, GERD, NIDDM, Renal failure (kidney failure/hemodialysis) and Other (GBS, thrombocytopenia, left upper extremity DVT)
Social History
Tobacco: Non-smoker
Drug: None
Personal:
Living: [facility]
Family History
Family History: Other (Reviewed and noncontributory)
Medications
-
Medications:
Generic Name Dose Route Start Last Admin
Trade Name Freq PRN Reason Stop Dose Admin
Acetaminophen 650 mg 06/06/25 19:02 06/09/25 05:15
Acetaminophen (Oral Solution) 650 Mg/20.3 Ml Cup TUBE 07/04/25 19:01 650 mg
Q4HPRN PRN Administration
pain, fever
Albuterol/Ipratropium 3 ml 06/06/25 17:24 06/07/25 07:22
Ipratropium 0.5/Albuterol 3 Mg (3 Ml Ampul) INH 3 ml
R Q6HPRN PRN Administration
SOB
Protocol
Albuterol/Ipratropium 3 ml 06/07/25 08:00 06/09/25 08:05
Ipratropium 0.5/Albuterol 3 Mg (3 Ml Ampul) INH 3 ml
R QID KEVIN Administration
Protocol
Ascorbic Acid 500 mg 06/07/25 08:00 06/09/25 08:29
Ascorbic Acid 500 Mg Tablet TUBE 07/05/25 07:59 500 mg
DAILY KEVIN Administration
Aspirin 325 mg 06/09/25 08:00 06/09/25 08:29
Aspirin 325 Mg Tablet TUBE 07/07/25 07:59 325 mg
DAILY KEVIN Administration
Atorvastatin Calcium 40 mg 06/06/25 20:00 06/08/25 19:12
Atorvastatin (Lipitor) 40 Mg Tablet TUBE 07/04/25 19:59 40 mg
DAILY@2000 KEVIN Administration
Dextrose 12.5 grams 06/06/25 19:00
Dextrose 50% (0.5 Grams/Ml) 50 Ml Syringe IV 07/04/25 18:59
[id number] PRN
Blood Glucose < 70
Emollient Ointment 1 applic 06/07/25 09:56 06/07/25 13:22
Petrolatum/Mineral Oil (Hydrophor) Oint 100 Gram TOPICAL 07/05/25 09:55 1 applic
DAILYPRN PRN Administration
Dryness
Fentanyl Citrate 50 mcg 06/06/25 18:55
Fentanyl (50 Mcg/Ml) 100 Mcg/2 Ml Ampul IV 06/20/25 18:54
[id number] PRN
see protocol
Protocol
Heparin Sodium 5,000 units 06/07/25 16:00 06/09/25 08:30
Heparin 5,000 Units/Ml 1 Ml Vial SC 07/05/25 15:59 5,000 units
Q8 KEVIN Administration
Piperacillin Sod/Tazobactam Sod 2.25 grams in 50 mls @ 100 mls/hr 06/06/25 22:00 06/09/25 05:00
Zosyn IV 50 mls
Q8H KEVIN Administration
Insulin Human Regular 100 units in 100 mls @ 0 mls/hr 06/06/25 19:00 06/08/25 18:28
Novolin R Insulin Infusion IV 100 mls
PER PROTOCOL KEVIN Administration
Protocol
Per Protocol
Valproate Sodium 1,000 mg/ 60 mls @ 57.5 mls/hr 06/08/25 20:00 06/09/25 08:31
Sodium Chloride IV 07/06/25 19:59 60 mls
Q12 KEVIN Administration
Nicardipine/Sodium Chloride 40 mg in 200 mls @ 0 mls/hr 06/09/25 05:30 06/09/25 05:25
Cardene IV 200 mls
PER PROTOCOL KEVIN Administration
Protocol
Per Protocol
Insulin Aspart 0 units 06/07/25 07:30 06/09/25 08:27
Insulin Aspart (Novolog) 100 Units/Ml 3 Ml Flexpen SC 07/05/25 07:29 4 units
AC KEVIN Administration
Protocol
Insulin Aspart 8 units 06/08/25 12:00 06/09/25 06:06
Insulin Aspart (Novolog) 100 Units/Ml 3 Ml Flexpen SC 07/06/25 11:59 8 units
Q6 KEVIN Administration
Levetiracetam 500 mg 06/07/25 20:00 06/09/25 08:30
Levetiracetam (100 Mg/Ml) 500 Mg/5 Ml Vial IV 07/05/25 19:59 500 mg
Q12 KEVIN Administration
Levothyroxine Sodium 150 mcg 06/07/25 06:00 06/09/25 05:16
Levothyroxine 150 Mcg Tablet TUBE 07/05/25 05:59 150 mcg
DAILY@0600 KEVIN Administration
Methylprednisolone Sodium Succinate 40 mg 06/07/25 08:00 06/09/25 08:30
Methylprednisolone Pf 40 Mg/Ml Vial IV 07/05/25 07:59 40 mg
DAILY KEVIN Administration
Metoprolol Tartrate 25 mg 06/06/25 20:00 06/06/25 20:17
Metoprolol 25 Mg Regular Release Tablet TUBE 07/04/25 19:59 25 mg
On Hold: 06/06/25 21:18 BID KEVIN Administration
Miconazole Nitrate 0 applic 06/07/25 20:00 06/09/25 08:31
Miconazole Powder Bottle TOPICAL 07/05/25 19:59 1 applic
BID KEVIN Administration
Cabergoline 0.5 Mg 0 mg 06/08/25 08:00
Tablet - 1 Tablet ( TUBE 07/06/25 07:59
0.5mg) Po Q4d Q4D KEVIN
Pantoprazole Sodium 40 mg 06/06/25 20:00 06/09/25 08:30
Pantoprazole Sodium 40 Mg/10 Ml Vial IV 07/04/25 19:59 40 mg
BID KEVIN Administration
Polyethylene Glycol 17 grams 06/07/25 08:00 06/09/25 08:29
Polyethylene Glycol Powder 17 Grams Packet TUBE 07/05/25 07:59 17 grams
DAILY KEVIN Administration
Primidone 50 mg 06/06/25 22:00 06/08/25 21:25
Primidone 50 Mg Tablet TUBE 07/04/25 21:59 50 mg
HS KEVIN Administration
Sodium Chloride 0 flush 06/06/25 17:00
Sodium Chloride 0.9% (Flush) Syringe IV 07/04/25 16:59
PER PROTOCOL KEVIN
Sodium Chloride 10 ml 06/06/25 20:00 06/09/25 08:29
Sodium Chloride 0.9% (Preservative Free) 10 Ml Vial IV 07/04/25 19:59 10 ml
BID KEVIN Administration
[2025-06-09 09:15] LABS: Glucose - Point of Care 181 mg/dl (70-99)
[2025-06-09 10:33] LABS: Glucose - Point of Care 183 mg/dl (70-99)
--- NOTE | 2025-06-09 10:44 | W.PN.NEPH.PH ---
Today's Communication / Plan
-
next HD tomorrow based on neuro recovery and family goals
Assessment/Plan
-
Impression:
Status post PEA event on dialysis today at [facility]
Leukocytosis with suspected aspiration event
ESRD Friday and Friday
Profound lactic acidosis
Vent dependent respiratory failure following PEA event
Hx of Complicated pneumonia -on pneumonia with possible large parapneumonic effusion, non-septic (lung atelectasis)/ 05/20
Sonian Wright�
Insulin-dependent diabetes
PEG
CHF
Hyperphosphatemia
CAD
Hypothyroidism
Plan:
s/p PEA arrest MATERIAL EXPEDITER
remains on vent and unresponsive
bp stable with out pressor
HD tolerated yesterday
meds adjusted renally
Patient appears to have suffered an anoxic event given severely compromised neurological status
Can maintain sevelamer via PEG once feedings resumed
for repeat CT today
guarded prognosis
reviewed with nursing
-
-
Date of Service: June 09, 2025
CC / HPI / ROS
-
Chief Complaint:
ESRD
History of Present Illness:
ESRD Friday
Hemodynamically stable off pressors
Remains intubated and nonresponsive off sedation (Fio2 at 40%)
Remains on heparin drip
White blood cell count better at 45
hb decreasing 9.1
Review of Systems:
Guerra catheter 269cc
Intubated and nonresponsive off sedation
febrile last night
on TF
Labs
-
Labs:
WBC 45.0 10^3/uL (4.8-10.8) H* 06/09/25 03:42
RBC 3.18 10^6/uL (4.70-6.10) L 06/09/25 03:42
Hgb 9.1 g/dL (13.0-18.0) L 06/09/25 03:42
Hct 27.3 % (39.0-52.0) L 06/09/25 03:42
Plt Count 253 10^3/uL (130-400) 06/09/25 03:42
Sodium 131 mmol/L (135-145) L 06/09/25 03:42
Potassium 4.5 mmol/L (3.5-5.1) 06/09/25 03:42
Chloride 95 mmol/L (98-107) L 06/09/25 03:42
Carbon Dioxide 25 mmol/L (22-30) 06/09/25 03:42
BUN 47 mg/dl (9-20) H 06/09/25 03:42
Creatinine 2.1 mg/dL (0.7-1.3) H 06/09/25 03:42
eGFR 32.42 06/09/25 03:42
Glucose 132 mg/dl (70-99) H 06/09/25 03:42
Calcium 8.8 mg/dl (8.4-10.2) 06/09/25 03:42
Phosphorus 3.3 mg/dl (2.5-4.5) 06/08/25 03:56
Coz-V-Pifaygdufau Pept 5450 pg/ml 06/06/25 13:32
Albumin 2.9 g/dl (3.5-5.0) L 06/08/25 03:56
Physical Exam
-
Vital Signs:
Vital Signs
Temp Pulse Resp BP Pulse Ox
100.2 F 104 22 151/66 91
06/09/25 08:00 06/09/25 08:07 06/09/25 08:07 06/06/25 22:30 06/09/25 08:08
Cardiovascular:: Regular rate and rhythm
Respiratory:: Bilateral: Coarse and Bilateral: Rhonchi
Lung Excursion:: Normal
Abdomen:: Nontender and Soft
Bowel Sounds:: Decreased
Extremity Edema:: +1: Bilateral:
Guerra Catheter: Yes
Other Findings::
General: Intubated nonsedated nonresponsive
[2025-06-09 11:40] LABS: Glucose - Point of Care 176 mg/dl (70-99)
[2025-06-09] MEDS: NOVOLOG FLEXPEN 6 UNITS SC (12:18)
[2025-06-09 12:28] LABS: Glucose - Point of Care 173 mg/dl (70-99)
--- NOTE | 2025-06-09 13:00 | PTCARENOTE ---
Reassessed the patient, no changes from previous assessments. Family decided together to transition to comfort care.
--- NOTE | 2025-06-09 13:21 | W.PN.HOSP.TC ---
Addendum entered and electronically signed by Abelardo Cowart MD 06/10/25 14:45:
suspect septic shock
Addendum entered and electronically signed by Abelardo Cowart MD 06/09/25 14:10:
CT scan consistent with diffuse cerebral edema suggestive of underlying severe anoxic encephalopathy. Goals of care discussion with production supervisor. Now on comfort measures.
Original Note:
Today's Communication/Plan
-
Monitor vital signs see plan
Vent management per production supervisor
Continue with Zosyn
Insulin
Monitor off sedation
Continue with antiepileptics
EEG
CT today per neurology
Assessment / Plan
Assessment / Plan
HEENT: Normocephalic
Cardiovascular: S1/S2,RRR
Respiratory: Rhonchi, ventilated breaths
GI: Soft and Non Distended
Neurology: AAox0
Psych: sedated
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
Acute on chronic hypoxic respiratory failure
Intubated, vent settings per production supervisor
- Leukocytosis
- Chest x-ray shows hazy opacities in the left lung, more confluent in the left lung base with obscuration of the hemidiaphragm which represent atelectasis versus pleural fluid
-CT head shows small chronic infarct in the left frontal lobe
-CT neg for PE
-EKG shows atrial paced rhythm with prolonged AV conduction.
-Hold Bumex
cw abx
Patient CT scan head suggestive of anoxic injury, poor prognosis for meaningful neurological recovery. On continuous EEG. On Keppra, now added valproate. Neurology following. Unable to obtain MRI per neurology due to pacemaker. Will need repeat
CT scan per neurology. CT scan 06/09 pending. Continuous EEG
Discussed with family at length as well. Prognosis appears guarded.
Essential hypertension
Hypertensive overnight, now on nicardipine drip
Monitor
Suspect sepsis was present on admission secondary to aspiration pneumonia
Monitor, cw abx
Suspect current fevers are central, discussed with production supervisor
lactic acidosis
likely post PEA arrest
monitor
Elevated troponin likely secondary to cardiac arrest
Monitor
# Hypokalemia
- Do not replete because ESRD patient
History of Pseudomonas/MSSA pneumonia
COPD/ Chronic respiratory failure on 2 L baseline
ESRD on hemodialysis Friday, Friday, Friday
- Nephrology following. HD per nephrology
- Continue sevelamer
Hyponatremia
History of pacemaker
- Interrogate pacemaker
Type 2 diabetes
Now on insulin drip. Monitor
History of PE/DVT
Guillain-Wright� status post PEG tube
On tube feed
History of CHF
- Continue metoprolol
Hypothyroidism
- Continue levothyroxine
Pituitary adenoma
- Continue cabergoline
Anxiety/depression
- Hold Lexapro
Full code
DVT prophylaxis�heparin
N.p.o.
I spent a total of 52 minutes with the patient or on the floor. More than 50% of this time involved counseling and coordination of care.
Anticipated Discharge: > 48 hours
Subjective/Interval History
-
Date of Service: June 09, 2025
Intubated
Objective Data
-
Labs:
Laboratory Results
06/09/25
03:42
WBC 45.0 H*
Hgb 9.1 L
Hct 27.3 L
Plt Count 253
HCO3 27.2
Sodium 131 L
Potassium 4.5
Chloride 95 L
Carbon Dioxide 25
BUN 47 H
Creatinine 2.1 H
Glucose 132 H
Calcium 8.8
Vital Signs:
Vital Signs
Temp Pulse Resp BP Pulse Ox
100.2 F 94 22 151/66 99
06/09/25 08:00 06/09/25 10:53 06/09/25 10:53 06/06/25 22:30 06/09/25 11:35
I&O
06/08/25 06/09/25 06/10/25
06:59 06:59 06:59
Intake Total 2210.2 / 2293.2 2140.0 / 2243.0 398.5 / 398.5
Output Total 315 / 325 274 / 289 45 / 45
Balance 1895.2 / 1968.2 1866.0 / 1954.0 353.5 / 353.5
[2025-06-09 13:23] LABS: Glucose - Point of Care 181 mg/dl (70-99)
--- NOTE | 2025-06-09 13:31 | W.PN.INTV ---
Addendum entered and electronically signed by Karissa Olivarez MD 06/17/25 07:42:
Patient comatose due to severe anoxic encephalopathy,
Original Note:
Today's Communication / Plan
Recommendations
- Switch to comfort focused care
- Anticipate palliative extubation later today
- [employer]rain [employer] service will be available as needed
Assessment
-
Patient is a 74-year-old gentleman with complex past medical history including chronic hypoxic and hypercapnic respiratory failure in the setting of neuromuscular weakness, end-stage renal disease on hemodialysis, on nightly BiPAP for suspected
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 45 minutes prior to dialysis finishing patient developed cardiac arrest. As per EMS records there were no preceding symptoms or distress noted. CPR was
started right away and EMS was called. 10 minutes into CPR EMS arrived and patient was noted to be in PEA with paced rhythm on the monitor without pulse. Patient received 3 doses of epi and CPR was continued for a total of 22 minutes following
which ROSC was achieved. Patient was intubated in the field and brought to the emergency room. Initial blood gas in the emergency room showed a pH of 7 with lactate up to 8 and hypercapnia. Patient started to move around in the emergency room,
briefly opened eyes, received as needed benzodiazepine and later propofol infusion. In view of cardiac arrest, patient is getting admitted to ICU and business rules analyst consultation was requested for further input.
Goals of care update:
06/09/2025: I met with patient's and multiple family members and friends at bedside. Patient had a CT scan performed today which showed diffuse cerebral edema suggestive of underlying severe anoxic encephalopathy. Explained to the family
members regarding patient's current condition. Patient continues to be unresponsive off all sedation. We discussed various options and family has opted to pursue palliative extubation and focus on keeping patient comfortable. Will place comfort
care order set, use fentanyl as needed for any air hunger that he might experience postextubation. Valium as needed for any anxiety or sign of distress.
Underlying medical diagnoses:
#1. Cardiac arrest with shock
#2. Acute on chronic hypoxic and hypercapnic respiratory failure with Aspiration pneumonia
#3. Lactic acidosis.
#4. ESRD on HD
#5. 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
#6. Prior h/o DVT/PE
#7. Anoxic encephalopathy with severe cerebral edema
Other medical diagnoses:
- Insulin-dependent diabetes mellitus, currently on insulin infusion
- Chronic dysphagia, had been on tube feeding via PEG tube. Tube feeding at goal
- Hypothyroidism
- Hypertension
- Macular degeneration
- S/p pacemaker placement. Pacer interrogation for further evaluation.
- Pituitary adenoma
Critical Care time 48 mins -- The patient is admitted for acute critical illness for the treatment of vital organ failure and/or prevention of further life-threatening conditions. Total care includes time spent in review of history, physical exam,
medications, hemodynamic/ventilator parameters, laboratory data, imaging and discussion with house staff, pharmacy, respiratory therapy, art critic, and nursing.
Prognosis is poor
Data:
CT Head 05/2025: Ill-defined low signal intensity in the central aspect of the pili, which could be artifactual or secondary to age-indeterminate ischemia.
Chronic senescent changes.
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
Slight blurring of the karimi-white matter differentiation may reflect the early changes of hypoxic ischemic encephalopathy in the setting of cardiac arrest. Continued imaging follow-up can be performed as clinically indicated.
CXR 05/2025: Lines and tubes, as above.
Hazy opacities within the left lung, more confluent on the left lung base with obscuration of the hemidiaphragm. Findings again may represent a combination of atelectasis and pleural fluid, though improved compared to earlier recent chest x-rays.
Subjective Dataa
Subjective Data
Date of Service:
Date of Service: June 09, 2025
Subjective:
Patient currently intubated, mechanically ventilated, continues to be unresponsive
Review of Systems
General: Unobtainable - Pat Unresp
Objective Data
Data Reviewed
Vital Signs / I&O / Oxygen:
Vital Signs
Temp Pulse Resp BP Pulse Ox
100.2 F 94 22 151/66 99
06/09/25 08:00 06/09/25 10:53 06/09/25 10:53 06/06/25 22:30 06/09/25 11:35
Intake and Output
06/08/25 06/09/25 06/10/25
06:59 06:59 06:59
Intake Total 2210.2 / 2293.2 2140.0 / 2243.0 398.5 / 398.5
Output Total 315 / 325 274 / 289 45 / 45
Balance 1895.2 / 1968.2 1866.0 / 1954.0 353.5 / 353.5
SaO2 [A/C] 94
SaO2 99
Physical Exam
General: Comfortable
HEENT: Normocephalic
Cardiovascular: S1-S2
Respiratory: Crackles and Rhonchi
GI: Soft and Non Distended
Neurology: Other (Eyes partially open, does not make eye contact, no meaningful communication. Corneal reflex absent, very weak gag present.)
Skin: Warm
Labs/Micro/Reports
Lab Data
06/09/25 03:42
06/09/25 03:42
Laboratory Results
06/09/25
03:42
pH 7.42
pCO2 42
pO2 86
HCO3 27.2
O2 Delivery Level
Microbiology
06/06/25 23:15 Nose Nasal Screen MRSA (PCR) - Final
MRSA not detected - performed by PCR methodology.
[2025-06-09] MEDS: VALIUM INJECTION 5 MG IV (15:12)
[2025-06-09] MEDS: ROBINUL 0.2 MG IV (15:12)
[2025-06-09] MEDS: SUBLIMAZE 50 MCG IV (15:13)
[2025-06-09] MEDS: ZOFRAN 4 MG IV (15:13)
--- NOTE | 2025-06-09 15:29 | CM ---
CM reviewed chart, patient transition to comfort care measures. CM will continue to follow for all discharge planning needs.
Plan; patient to transition to comfort care
--- NOTE | 2025-06-09 16:02 | EEGC.RPT ---
Continuous EEG Report
Recording
Start Date of Data Reviewed: 06/09/25
Start Time of Data Reviewed: 07:00
End Date of Data Reviewed: 06/09/25
End Time of Data Reviewed: 10:45
Type of EEG: Continuous
Done with Video Recording: Yes
Study Sequence: Continuation of ongoing Study
Electrocardiogram: Unremarkable
Report
24 HOUR CONTINUOUS EEG REPORT
24 HOUR CONTINUOUS EEG INTERPRETATION:
Moderately abnormal EEG for age due to:
Loss of normal background rhythms
CLINICAL CORRELATION:
This study was suggestive of moderate to severe bihemispheric cortical dysfunction with independent focal abnormalities bilaterally frontally, less obvious during progression of the study. Overall, the study appears to have improved compared with
the prior day, remaining abnormal.
Clinical correlation is advised.
METHODS:
A 21 channel digitized electroencephalogram (EEG) was performed at the bedside in the intensive care unit. The 10/20 international system of electrode placement was used. ECG was monitored. Persyst quantitative analysis was performed.
ELECTROENCEPHALOGRAPHER IMPRESSION(S):
Quality
Good
Background
Maximum: No specific background demonstrated
Anterior-posterior gradient: Absent
Sleep
Not demonstrated
Abnormal EEG activity
None
Electrocardiogram
Regular rhythm
--- NOTE | 2025-06-09 16:05 | W.PN.DEATH ---
Pronouncement of
-
Called to see patient to pronounce.
No spontaneous heart tones or respirations noted.
Patient not responsive to verbal stimuli.
Patient is pronounced .
Time of : 15:51
Date of : 06/09/25
Cause of : anoxic brain injury in setting of cardiac arrest
Family Notified: Yes
--- NOTE | 2025-06-09 17:36 | PTCARENOTE ---
15:51, Patient and pronouced by Dr. Kaufman.
16:30, Notified [facility] regarding patient's . Per [facility], patient is eligible for tissue donation and they will reach out to Ashlee.
17:00, Ashlee stated that services told her that body cannot be picked up at arranged time because [facility] holding the body for donation.
17:30, Ashlee called [facility] herself and was told someone from [facility] will call her back. stated in the patient's room that NO to any body donation.
--- NOTE | 2025-06-09 17:48 | RESPNOTE ---
Respiratory: patient extubated @[address] Olivarez, without incident no stridor.
--- NOTE | 2025-06-09 18:08 | PTCARENOTE ---
Ashlee called [facility] again and [facility] said home can lease picker the patient at arranged time.
[2025-06-09 18:43] LABS: Hepatitis B Surface Antigen Negative (Negative)
--- NOTE | 2025-06-10 07:22 | W.DCSUMMARY ---
Addendum entered and electronically signed by Abelardo Cowart MD 06/10/25 16:34:
Discharge diagnosis:
PEA cardiac arrest
Acute on chronic hypoxic respiratory failure
Ventilator dependent respiratory failure
Chronic CIDP/DM Wright�
Suspected septic shock
Suspected aspiration pneumonia
Lactic acidosis
Severe anoxic encephalopathy
Original Note:
Discharge Summary
Discharge Data
Date of Admission: 06/06/25
Date of Discharge: 06/09/25
-
Pending Results: No
Hospital Course
74-year-old male with past medical history of DM Wright�/CIDP, essential hypertension, history of MSSA/Pseudomonas pneumonia, COPD, chronic respiratory failure, ESRD on hemodialysis, history of pacemaker, type 2 diabetes mellitus, PE/DVT, CHF,
hypothyroidism, pituitary adenoma, anxiety, depression came to the hospital after cardiac arrest. Patient was intubated throughout hospitalization. It was suspected that patient likely had acute on chronic hypoxic respiratory failure secondary to
possible aspiration event. Postcardiac arrest, patient was admitted to ICU. On EEG there was concern about epilepsy so patient was started on antiepileptics. It was determined the patient likely has anoxic brain injury from cardiac arrest. CT
scan on 06/09/2025 showed diffuse cerebral edema suggestive of severe anoxic encephalopathy. After discussion, family decided comfort measures. Patient later on 06/09/2025.
Discharge Plan
-
Patient Disposition:
Date/Time
Date/Time: 06/09/25 15:51
Discharge Date and Time
Discharge Date/Time: 06/09/25 15:51
Print Language: PASHTO
--- NOTE | 2025-06-10 13:49 | PN.CDI ---
CDI
- -
CDI:
Physician Documentation Request
Admit Date: 06/06/25 16:46
Dear Doctor Sher,
Patient admitted with cardiac arrest.
06/08 Process Owner note, '10 minutes into CPR EMS arrived and patient was noted to be in PEA with paced rhythm on the monitor without pulse. Patient had GCS 3 on arrival.'
06/09 Process Owner note, ' Patient had a CT scan performed today which showed diffuse cerebral edema suggestive of underlying severe anoxic encephalopathy....Patient continues to be unresponsive off all sedation.'
Please provide in your note the likely diagnosis associated with the patient's level of responsiveness:
Coma
Unresponsiveness only
Other
Use of terms such as suspected, likely, concern for, or probable (associated with a specific diagnosis that is being evaluated, monitored, or treated as if it exists) are acceptable and can be coded in the inpatient setting, when documented at the
time of discharge.
Thank you,
Jossie COELHO,RN,CCDS
CDI Specialist
Available via [place] text
Please use your independent medical judgment in providing your response.
--- NOTE | 2025-06-10 14:03 | PN.CDI ---
CDI
- -
CDI:
Physician Documentation Request
Admit Date: 06/06/25 16:46
Dear Doctor Supa,
Patient admitted with cardiac arrest.
06/09 PN, 'Suspect sepsis was present on admission.'
06/09 Systems Analysis Manager note, ' Cardiac arrest with shock.'
06/06 Patient received IV Levophed.
On admission, WBC 26.2 and temp 94.5
Please clarify which of the following is the most likely etiology of the above symptoms and treatment rendered:
Septic shock
Cardiogenic shock
Other
Use of terms such as suspected, likely, concern for, or probable (associated with a specific diagnosis that is being evaluated, monitored, or treated as if it exists) are acceptable and can be coded in the inpatient setting, when documented at the
time of discharge.
Thank you,
Jossie MORENON,RN,CCDS
CDI Specialist
Available via tiger text
Please use your independent medical judgment in providing your response.
--- NOTE | 2025-06-16 13:42 | PN.CDI ---
CDI
- -
CDI:
Physician Documentation Request
Admit Date: 06/06/25 16:46
Dear Doctor Sher,
Patient admitted with cardiac arrest.
06/08 Drilling Fluids Specialist note, '10 minutes into CPR EMS arrived and patient was noted to be in PEA with paced rhythm on the monitor without pulse. Patient had GCS 3 on arrival.'
06/09 Drilling Fluids Specialist note, ' Patient had a CT scan performed today which showed diffuse cerebral edema suggestive of underlying severe anoxic encephalopathy....Patient continues to be unresponsive off all sedation.'
Please provide in your note the likely diagnosis associated with the patient's level of responsiveness:
Coma
Unresponsiveness only
Other
Use of terms such as suspected, likely, concern for, or probable (associated with a specific diagnosis that is being evaluated, monitored, or treated as if it exists) are acceptable and can be coded in the inpatient setting, when documented at the
time of discharge.
Thank you,
Jossie COELHO,RN,CCDS
CDI Specialist
Available via [place] text
Please use your independent medical judgment in providing your response.
== END 2025-06-09 15:51 | disposition expired | DRG 208 ==
LOC: ICU 16:46
PROVIDERS: Internal Medicine; Nurse Practitioner Family; Nurse Practitioner Primary Care; ADMITTING PHYSICIAN Hospitalist; ATTENDING PHYSICIAN Internal Medicine; CONSULT PHYSICIAN Internal Medicine; CONSULT PHYSICIAN Psychiatry & Neurology Neurology; CONSULT PHYSICIAN Specialist; EMERGENCY PHYSICIAN Student in an Organized Health Care Education/Training Program; FAMILY PHYSICIAN Family Medicine
PROC: 03HY32Z Insertion of Monitoring Device into Upper Artery, Percutaneous Approach (ICD-10-PCS; 2025-06-06)
PROC: 5A1945Z Respiratory Ventilation, 24-96 Consecutive Hours (ICD-10-PCS; 2025-06-06)
PROC: 4B02XSZ Measurement of Cardiac Pacemaker, External Approach (ICD-10-PCS; 2025-06-06)
PROC: XX20X89 Monitoring of Brain Electrical Activity, Computer-aided Detection and Notification, New Technology Group 9 (ICD-10-PCS; 2025-06-07)
PROC: 5A1D70Z Performance of Urinary Filtration, Intermittent, Less than 6 Hours Per Day (ICD-10-PCS; 2025-06-08)
DX: J96.21 Acute and chronic respiratory failure with hypoxia (principal); A41.9 Sepsis, unspecified organism; G93.6 Cerebral edema; N18.6 End stage renal disease; R65.21 Severe sepsis with septic shock; J69.0 Pneumonitis due to inhalation of food and vomit; I63.9 Cerebral infarction, unspecified; J18.9 Pneumonia, unspecified organism; G61.0 Guillain-Barre syndrome; E87.20 Acidosis, unspecified; Z99.11 Dependence on respirator [ventilator] status; G93.1 Anoxic brain damage, not elsewhere classified; G61.81 Chronic inflammatory demyelinating polyneuritis; I13.2 Hypertensive heart and chronic kidney disease with heart failure and with stage 5 chronic kidney disease, or end stage renal disease; J44.0 Chronic obstructive pulmonary disease with (acute) lower respiratory infection; J96.22 Acute and chronic respiratory failure with hypercapnia; I46.9 Cardiac arrest, cause unspecified; E87.6 Hypokalemia; E03.9 Hypothyroidism, unspecified; D35.2 Benign neoplasm of pituitary gland; F32.A Depression, unspecified; F41.9 Anxiety disorder, unspecified; E11.22 Type 2 diabetes mellitus with diabetic chronic kidney disease; E83.39 Other disorders of phosphorus metabolism; I25.10 Atherosclerotic heart disease of native coronary artery without angina pectoris; H35.30 Unspecified macular degeneration; K59.00 Constipation, unspecified; R13.10 Dysphagia, unspecified; B96.5 Pseudomonas (aeruginosa) (mallei) (pseudomallei) as the cause of diseases classified elsewhere; G25.3 Myoclonus; I50.9 Heart failure, unspecified; Z79.4 Long term (current) use of insulin; Z79.899 Other long term (current) drug therapy; Z86.73 Personal history of transient ischemic attack (TIA), and cerebral infarction without residual deficits; Z86.711 Personal history of pulmonary embolism; Z86.718 Personal history of other venous thrombosis and embolism; Z99.2 Dependence on renal dialysis; Z95.0 Presence of cardiac pacemaker; Z51.5 Encounter for palliative care
CPT/HCPCS: 36600; 70450; 71045; 71275; 80048; 80053; 80076; 80202; 82330; 82805; 82962; 83036; 83605; 83735; 83880; 84100; 84132; 84302; 84478; 84484; 85025; 85027; 85610; 85730; 86706; 87340; 87641; 93005; 93306; 94002; 94003; 94640; 95705; 95714; 96374; 96375; 99291; G0257; Q9950; Q9967